=== PATIENT | female | born 1995 ===

== ENCOUNTER → 2020-04-08 08:53 | Outpatient (BNVA) | payer OTHER, SELFPAY | PROVIDERS: PCP Internal Medicine; Visit Provider Advanced Practice Midwife | DX: Z30.42 Encounter for surveillance of injectable contraceptive (principal) | CPT/HCPCS: 96372 ==

== ENCOUNTER 2020-05-15 10:00 | Outpatient (REF) | payer OTHER, MEDICAID, SELFPAY ==
[2020-05-16 03:09] LABS: CT PCR NOT DETECTED (Not Detect.); NG PCR NOT DETECTED (Not Detect.)
[2020-05-16 08:18] LABS: BV Int Neg Control Negative (Negative); BV Int Pos Control Positive (Positive)
== END 2020-05-15 10:01 | disposition home or self-care (01) ==
LOC: HO.LAB 10:00
PROVIDERS: PCP Internal Medicine; Referring Provider Internal Medicine; Visit Provider Advanced Practice Midwife
DX: Z01.419 Encounter for gynecological examination (general) (routine) without abnormal findings (principal); R10.2 Pelvic and perineal pain; Z11.8 Encounter for screening for other infectious and parasitic diseases; Z11.3 Encounter for screening for infections with a predominantly sexual mode of transmission
CPT/HCPCS: 87480; 87491; 87510; 87591; 87660

== ENCOUNTER 2020-05-21 10:26 | Outpatient (REF) | payer OTHER, MEDICAID, SELFPAY ==
--- NOTE | 2020-05-21 10:31 | US_ITS ---
EXAMINATION: ULTRASOUND OF THE PELVIS CLINICAL INFORMATION: Pelvic and perineal pain. COMPARISON: 06/24/2018.. TECHNIQUE: Transabdominal and transvaginal pelvic ultrasound. A transvaginal study was performed in addition to the transabdominal study which did not yield an adequate examination of the uterus and ovaries due to superimposed distended gas-filled loops of bowel. FINDINGS: The uterus is normal in size and appearance, measuring 7.1 x 3.1 x 4.5 cm longitudinally, anteroposteriorly and transversely. Retroverted uterus. The endometrial stripe thickness is normal, measuring 0.3 cm in thickness. No focal myometrial mass is seen. The ovaries bilaterally are visualized and appear normal, with the right ovary measuring 3.1 x 1.5 x 2 cm and the left ovary measuring 2.8 x 1.3 x 1.8 cm. No adnexal mass or free fluid collection seen. US/US transvaginal IMPRESSION: Normal pelvic ultrasound..
--- NOTE | 2020-05-21 10:31 | US_ITS ---
EXAMINATION: ULTRASOUND OF THE PELVIS CLINICAL INFORMATION: Pelvic and perineal pain. COMPARISON: 06/24/2018.. TECHNIQUE: Transabdominal and transvaginal pelvic ultrasound. A transvaginal study was performed in addition to the transabdominal study which did not yield an adequate examination of the uterus and ovaries due to superimposed distended gas-filled loops of bowel. FINDINGS: The uterus is normal in size and appearance, measuring 7.1 x 3.1 x 4.5 cm longitudinally, anteroposteriorly and transversely. Retroverted uterus. The endometrial stripe thickness is normal, measuring 0.3 cm in thickness. No focal myometrial mass is seen. The ovaries bilaterally are visualized and appear normal, with the right ovary measuring 3.1 x 1.5 x 2 cm and the left ovary measuring 2.8 x 1.3 x 1.8 cm. No adnexal mass or free fluid collection seen. US/US pelvic complete IMPRESSION: Normal pelvic ultrasound..
== END 2020-05-21 10:27 | disposition home or self-care (01) ==
LOC: HO.HMGCX 10:26
PROVIDERS: PCP Internal Medicine; Visit Provider Advanced Practice Midwife
DX: R10.2 Pelvic and perineal pain (principal)
CPT/HCPCS: 76830; 76856

== ENCOUNTER → 2020-06-04 11:14 | Outpatient (BNVA) | payer OTHER, SELFPAY | PROVIDERS: Visit Provider Advanced Practice Midwife | DX: Z76.89 Persons encountering health services in other specified circumstances (principal) ==

== ENCOUNTER → 2020-06-24 09:03 | Outpatient (BNVA) | payer OTHER, SELFPAY | PROVIDERS: Visit Provider Advanced Practice Midwife | DX: Z76.89 Persons encountering health services in other specified circumstances (principal) ==

== ENCOUNTER → 2020-09-19 08:59 | Outpatient (BNVA) | payer OTHER, SELFPAY | PROVIDERS: Visit Provider Advanced Practice Midwife | DX: Z30.8 Encounter for other contraceptive management (principal) | CPT/HCPCS: J1050 ==

== ENCOUNTER → 2020-12-10 11:02 | Outpatient (BNVA) | payer OTHER, SELFPAY | PROVIDERS: Visit Provider Advanced Practice Midwife ==

== ENCOUNTER → 2021-02-27 09:05 | Outpatient (BNVA) | payer OTHER, SELFPAY | PROVIDERS: Visit Provider Advanced Practice Midwife ==

== ENCOUNTER 2021-04-08 18:34 | Emergency (ER) | payer OTHER, MEDICAID, SELFPAY ==
[2021-04-08 19:20] VITALS: BP 140/96; PULSE 70; RESP 18; TEMP 36.3; O2SAT 98; BMI 29.2
[2021-04-08 19:30] LABS: Appearance Urine CLEAR; Glucose Urine UA NEG (NEG); Leukocyte Esterase Urine NEG (NEG); Nitrite Urine NEG (NEG); Specific Gravity - Urine 1.015 (1.005-1.025); Urine Blood NEG (NEG); Urine Ketones NEG (NEG); Urine Protein NEG (NEG-TRACE)
[2021-04-08 19:31] LABS: Color Urine DARK YELLOW
[2021-04-08 19:33] LABS: UPreg QC Valid YES; Urine Pregnancy NEGATIVE (NEGATIVE)
--- NOTE | 2021-04-08 21:19 | ED.FEMALEGU ---
HPI - Female Genitourinary General Chief complaint: Urogenital-Female Stated complaint: ? and uti Time Seen by Provider: 04/08/21 21:19 Source: patient Mode of arrival: ambulatory Limitations: no limitations History of Present Illness HPI Narrative: 25-year-old female who presents emergency department for evaluation of blood urinary frequency. She states she has had the symptoms for approximately 1 week. She states that she has been also feeling bloated and is having mild to moderate back pain. She describes a bloating and back pain as a constant, pressure sensation which is [id number] in intensity. The patient states that she was diagnosed with H pylori in December of 2020 and she has not been able to complete a regimen of antibiotics secondary to side effects. She is currently taking rifabutin and amoxicillin and she believes that her symptoms may be a side effect of the rifabutin. She denied fever, chills, chest pain, shortness of breath, change in bowel movements. She states she has had nausea and 1 episode of vomiting daily since she has been on this new regimen. She states that she gets urinary tract infections once a year and her symptoms often include frequency and bloating. Related Data Home Medications Medication Instructions Recorded Confirmed ibuprofen 800 mg tablet 800 mg PO Q8H PRN 05/15/20 omeprazole 10 mg capsule,delayed 10 mg PO DAILY 06/04/20 release Previous Rx's Medication Instructions Recorded valacyclovir 500 mg tablet 500 mg PO BID #30 tab 12/23/20 (Valtrex) medroxyprogesterone 150 mg/mL 150 mg IM [id number] 90 Days #1 ml 02/25/21 intramuscular suspension (Depo-Provera) Allergies Allergy/AdvReac Type Severity Reaction Status Date / Time mold Allergy Unknown Verified 06/04/20 11:16 Review of Systems Review of Systems: Yes all other systems are reviewed and are negative PMFSH Past Medical History [facility] Narrative: Past medical history GERD, chronic migraines. Past surgical history: None. Social history: She denies tobacco use. She denies alcohol use. She denies drug use. Medical History Acid reflux Chronic UTI H. pylori infection History of posttraumatic stress disorder (PTSD) Hx of eczema Hx of seasonal allergies Migraines Family History Family History Paternal Grandmother History of hypertension Social History Social History Alcohol intake: never Advance Directives: No Advance Directives Information Provided: No Patient : No Sexual orientation: Straight/Heterosexual Gender identity: Female Physical Exam Vital Signs: Vital Signs: Last Vital Signs Temp 98.3 F 04/08/21 21:38 Pulse 82 04/08/21 21:38 Resp 16 04/08/21 21:38 BP 132/87 04/08/21 21:38 Pulse Ox 100 04/08/21 21:38 Body Mass Index 29.2 Const: General: cooperative and no acute distress Orientation/consciousness: oriented to person and oriented to place Limitations: no limitations HENMT: Head: Yes normal to inspection, Yes normocephalic and Yes atraumatic Ears: external ears normal General nose exam: Normal external nose present Face and sinus: Yes normal facial exam Mouth: Normal oral and palatal mucosa present Throat: Yes posterior oropharynx normal Eyes: General: appearance normal, both eyes and all related structures Pupils: Equal, round and reactive pupils present Neck: Neck: Yes normal visual inspection, Yes no lymphadenopathy, Yes trachea midline and Yes supple Chest: Chest palpation & inspection: normal inspection of the chest and normal palpation of entire chest wall Resp: Effort & Inspection: normal respiratory effort and able to speak in complete sentences Auscultation: clear to auscultation bilaterally Cardio: Rate: regular rate Rhythm: regular rhythm Heart sounds: S1 normal heart sound present, S2 normal heart sound present and no murmurs GI: Inspection: Yes normal to inspection Palpation (GI): Soft to palpation, nontender and no guarding Auscultation: normal bowel sounds : General: Yes no CVA tenderness Back/Spine/Pelvis: Back: no CVA tenderness Skin: General skin exam: no rashes or lesions noted Neuro: General: oriented to person and oriented to place Cranial nerves: Yes CN's II-XII intact bilaterally and Yes Equal, round and reactive pupils present Cognition (Neuro): normal cognition Motor exam (neuro): 5/5 motor strength present throughout Extrem: General: Yes normal to inspection Psych: Appearance: grossly normal Speech and movement: Normal speech and movement present Affect: normal affect Attitude: cooperative Thought process: Normal thought process present Thought content: Normal thought content present Course Course Course Narrative: 25-year-old female who presents emergency for evaluation of urinary frequency bloating x1 week. Patient is currently being treated for H pylori with amoxicillin and rifabutin. Vital signs were normal. Physical examination was unremarkable. Urinalysis was negative. Urine test was negative. I did discuss these results with the patient and I strongly advised her to try to complete her H pylori regimen and return to the emergency department if she developed new since of urinary tract infection or any symptoms that are concerning to her. Patient was discharged home [facility] - Female Genitourinary Lab Data Labs: Lab Results 04/08/21 04/08/21 Range/Units 19:16 Unknown Urine Color DARK YELLOW Urine Appearance CLEAR Urine pH 7.0 (5.0-8.0) Ur Specific [place] 1.015 (1.005-1.025) Urine Protein NEG (NEG-TRACE) MG/DL Urine Glucose (UA) NEG (NEG) MG/DL Urine Ketones NEG (NEG) MG/DL Urine Blood NEG (NEG) Urine Nitrite NEG (NEG) Ur Leukocyte Esterase NEG (NEG) Urine Test NEGATIVE (NEGATIVE) Discharge Plan Discharge Clinical Impression: Frequency of urination, Bloating Patient Disposition: Home, Self-Care Additional Instructions: Your urine test was negative Your urinalysis was negative as well, this negative test suggest that your urinary frequency is not due to urine infection and it is most likely caused by the medications that you taking for H pylori. I would advise that you try to finish the next 4 days of this medication to complete your antibiotic regimen. I would watch for signs of infection which would include fever, chills, severe back pain, severe pelvic pain, burning when urinate. Follow-up with your doctor in 2 days. Please return to the emergency department if your symptoms get worse or if you develop any symptoms that are concerning to you. Prescriptions: No Action valacyclovir [Valtrex] 500 mg tablet 500 mg PO BID Qty: 30 RF: 1 medroxyprogesterone [Depo-Provera] 150 mg/mL suspension 150 mg IM [id number] 90 Days Qty: 1 RF: 1 omeprazole 10 mg capsule,delayed release(DR/EC) 10 mg PO DAILY RF: 0 ibuprofen 800 mg tablet 800 mg PO Q8H PRN (Reason: pain) RF: 0
[2021-04-08 21:38] VITALS: BP 132/87; PULSE 82; RESP 16; TEMP 36.8; O2SAT 100
== END 2021-04-08 22:03 | disposition home or self-care (01) ==
PROVIDERS: Emergency Provider Emergency Medicine Emergency Medical Services; PCP Internal Medicine
DX: R35.0 Frequency of micturition (principal); R14.0 Abdominal distension (gaseous); Z79.2 Long term (current) use of antibiotics; Z79.899 Other long term (current) drug therapy
CPT/HCPCS: 81003; 81025; 99282; 99283; 99284

== ENCOUNTER → 2021-05-28 11:41 | Outpatient (BNVA) | payer OTHER, SELFPAY | PROVIDERS: PCP Internal Medicine; Visit Provider Advanced Practice Midwife ==

== ENCOUNTER → 2021-08-14 08:22 | Outpatient (BNVA) | payer OTHER, SELFPAY | PROVIDERS: PCP Internal Medicine; Visit Provider Advanced Practice Midwife | DX: Z30.42 Encounter for surveillance of injectable contraceptive (principal) | CPT/HCPCS: 96372 ==

== ENCOUNTER 2021-09-16 08:17 | Outpatient (REF) | payer OTHER, MEDICAID, SELFPAY ==
[2021-09-17 04:11] LABS: CT PCR NOT DETECTED (Not Detect.); NG PCR NOT DETECTED (Not Detect.)
[2021-09-17 08:45] LABS: BV Int Neg Control Negative (Negative); BV Int Pos Control Positive (Positive)
== END 2021-09-16 08:18 | disposition home or self-care (01) ==
LOC: HO.LAB 08:17
PROVIDERS: PCP Internal Medicine; Visit Provider Advanced Practice Midwife
DX: Z01.419 Encounter for gynecological examination (general) (routine) without abnormal findings (principal); N76.0 Acute vaginitis; Z20.2 Contact with and (suspected) exposure to infections with a predominantly sexual mode of transmission
CPT/HCPCS: 87480; 87491; 87510; 87591; 87660; 88142

== ENCOUNTER → 2021-11-10 11:20 | Outpatient (BNVA) | payer OTHER, MEDICAID, SELFPAY | PROVIDERS: Visit Provider Advanced Practice Midwife | DX: Z30.42 Encounter for surveillance of injectable contraceptive (principal) | CPT/HCPCS: 96372 ==

== ENCOUNTER → 2022-01-27 09:43 | Outpatient (BNVA) | payer OTHER, MEDICAID, SELFPAY | PROVIDERS: Visit Provider Advanced Practice Midwife | DX: Z30.42 Encounter for surveillance of injectable contraceptive (principal) | CPT/HCPCS: 96372 ==

== ENCOUNTER → 2022-04-24 12:57 | Outpatient (BNVA) | payer OTHER, MEDICAID, SELFPAY | PROVIDERS: Visit Provider Advanced Practice Midwife | DX: Z30.42 Encounter for surveillance of injectable contraceptive (principal) | CPT/HCPCS: 96372 ==

== ENCOUNTER → 2022-07-20 14:37 | Outpatient (BNVA) | payer OTHER, SELFPAY | PROVIDERS: Visit Provider Advanced Practice Midwife | DX: Z30.42 Encounter for surveillance of injectable contraceptive (principal) | CPT/HCPCS: 96372 ==

== ENCOUNTER 2022-09-29 08:59 | Outpatient (REF) | payer OTHER, SELFPAY ==
[2022-09-29 15:16] LABS: CT PCR NOT DETECTED (Not Detect.); NG PCR NOT DETECTED (Not Detect.)
== END 2022-09-29 09:00 | disposition home or self-care (01) ==
LOC: HO.LNP 08:59
PROVIDERS: Visit Provider Advanced Practice Midwife
DX: Z20.2 Contact with and (suspected) exposure to infections with a predominantly sexual mode of transmission (principal)
CPT/HCPCS: 0353U

== ENCOUNTER → 2022-10-06 14:57 | Outpatient (BNVA) | payer OTHER, SELFPAY | PROVIDERS: Visit Provider Advanced Practice Midwife | DX: Z30.42 Encounter for surveillance of injectable contraceptive (principal) | CPT/HCPCS: 96372; 99211 ==

== ENCOUNTER → 2023-01-04 08:32 | Outpatient (BNVA) | payer OTHER, SELFPAY | PROVIDERS: Visit Provider Advanced Practice Midwife | DX: Z30.42 Encounter for surveillance of injectable contraceptive (principal) | CPT/HCPCS: 96372; 99211 ==

== ENCOUNTER 2023-03-29 08:55 | Outpatient (AMB) | payer OTHER, SELFPAY ==
[2023-03-29 09:14] VITALS: BMI 27.6
--- NOTE | 2023-03-29 09:14 | AM.OFFVISNUR ---
Intake Vital Signs 03/29/23 09:14 Height 5 ft 2 in Weight 68.492 kg BMI 27.6 Intake Visit Reasons: DEPO Allergies mold Allergy (Verified 09/29/22 09:10) Unknown Nursing Note Kait is here for her scheduled DEPO-Provera inj. She has no complaints. Follow up in 12 weeks for nest inj. Office Procedures Depo Questionnaire If YES to any of the following questions, please consult a provider. Date of last injection: 01/03/23 Date of last gynecology exam: 09/16/22 Menstrual pattern since last injection has been: Not Applicable Irregular bleeding?: No Breast lumps or other breast changes?: No Changes in weight or appetite?: No Depression or changes in mood?: No Abnormal hair growth or loss?: No Skin problems (rash, acne, discoloration)?: No Pain at the injection site?: No Headaches?: No Nervousness?: No Abdominal pain or cramping?: No Dizziness or nausea?: No Fatigue or weakness?: No Decrease in sexual drive?: No Chest pain or shortness of breath?: No Swelling in arms or legs?: No Form completed by?: Merline Hunter LPN Office Meds Depo-Provera 150 mg/mL intramuscular syringe Performing Provider: Nahomi Hopper CNM Performing Location: [facility] [place] [facility] Administered by: Nelly Hunter LPN on 03/29/23 09:15 Dose Route Admin Location Dispensed Lot Number Expiration Date [facility] Supervisor Fish Processing 150 mg IM rt. deltoid 1 mL [id number] 05/04/25 80573-424-46 [facility] Coding Level of Care Code Established Pt Est Pt Level 1 (48278) Patient Type Established History Problem Focused Exam Problem Focused Medical Decision Making Straight Forward Time Spent (min) 20 Assessment & Plan Assessment & Plan Orders: Orders AMB Medroxyprogesterone Injection Patient Supplied Today Z30.42 - Encounter for surveillance of injectable contraceptive
== END 2023-03-29 09:09 | disposition home or self-care (01) ==
PROVIDERS: Visit Provider Advanced Practice Midwife
DX: Z30.42 Encounter for surveillance of injectable contraceptive (principal)

== ENCOUNTER → 2023-03-29 08:55 | Outpatient (BNVA) | payer OTHER, SELFPAY | PROVIDERS: Visit Provider Advanced Practice Midwife | DX: Z30.42 Encounter for surveillance of injectable contraceptive (principal) | CPT/HCPCS: 96372; 99211; J1050 ==

== ENCOUNTER 2023-06-24 11:08 | Outpatient (AMB) | payer OTHER, SELFPAY ==
[2023-06-24 11:21] VITALS: BMI 28.6
--- NOTE | 2023-06-24 11:21 | AM.OFFVISNUR ---
Intake Vital Signs 06/24/23 11:21 Height 5 ft 2 in Weight 70.817 kg BMI 28.6 Intake Visit Reasons: Depo Allergies mold Allergy (Verified 09/29/22 09:10) Unknown Nursing Note Kait is here today for her scheduled Depo-provera inj. Her medication was in bag with receipt from today. Pt had no complaints follow up in 12 wks for next inj. Office Procedures Depo Questionnaire If YES to any of the following questions, please consult a provider. Date of last injection: 03/29/23 Date of last gynecology exam: 09/24/22 Menstrual pattern since last injection has been: Not Applicable Irregular bleeding?: No Breast lumps or other breast changes?: No Changes in weight or appetite?: No Depression or changes in mood?: No Abnormal hair growth or loss?: No Skin problems (rash, acne, discoloration)?: No Pain at the injection site?: No Headaches?: No Nervousness?: No Abdominal pain or cramping?: No Dizziness or nausea?: No Fatigue or weakness?: No Decrease in sexual drive?: No Chest pain or shortness of breath?: No Swelling in arms or legs?: No Form completed by?: Merline mackey LPN Office Meds Depo-Provera 150 mg/mL intramuscular syringe Performing Provider: Nahomi Hopper CNM [place] [facility] [place] [facility] Administered by: Nelly Mackey LPN on 06/24/23 11:21 Dose Route Admin Location Dispensed Lot Number Expiration Date [facility] 150 mg IM Lt deltoid 1 mL [id number] 10/02/25 20461-253-82 [facility] Coding Level of Care Code Established Pt Est Pt Level 1 (65654) Patient Type Established History Problem Focused Exam Problem Focused Medical Decision Making Straight Forward Time Spent (min) 15 Assessment & Plan Assessment & Plan Orders: Orders AMB Medroxyprogesterone Injection Patient Supplied Today Z30.42 - Encounter for surveillance of injectable contraceptive
== END 2023-06-24 12:06 | disposition home or self-care (01) ==
LOC: HO.HWS 11:08
PROVIDERS: Visit Provider Advanced Practice Midwife
DX: Z30.42 Encounter for surveillance of injectable contraceptive (principal)

== ENCOUNTER → 2023-06-24 11:08 | Outpatient (BNVA) | payer OTHER, SELFPAY | PROVIDERS: Visit Provider Advanced Practice Midwife | DX: Z30.42 Encounter for surveillance of injectable contraceptive (principal) | CPT/HCPCS: 96372; 99211; J1050 ==

== ENCOUNTER 2023-09-17 08:52 | Outpatient (AMB) | payer OTHER, SELFPAY ==
[2023-09-17 09:21] VITALS: BMI 28.7
--- NOTE | 2023-09-17 09:21 | AM.OFFVISNUR ---
Intake Vital Signs 09/17/23 09:21 Height 5 ft 2 in Weight 157 lb BMI 28.7 Intake Visit Reasons: DEPO Fitness And Wellness Manager Required: No Allergies mold Allergy (Verified 09/29/22 09:10) Unknown Is last menstrual period known: No Post menopausal: No Patient : No Do you need a note to return to daycare/school/sports/work: No Nursing Note Kait is here for scheduled Depo provera injection. No c/o, no new meds or diagnoses. Pt tolerated injection well. Pt will schedule next injection in 12 weeks. Pt verbalizes understanding and agrees with plan. No further questions. Office Procedures Depo Questionnaire If YES to any of the following questions, please consult a provider. Date of last injection: 06/24/23 Date of last gynecology exam: 09/29/22 Menstrual pattern since last injection has been: Not Applicable Irregular bleeding?: No Breast lumps or other breast changes?: No Changes in weight or appetite?: No Depression or changes in mood?: No Abnormal hair growth or loss?: No Skin problems (rash, acne, discoloration)?: No Pain at the injection site?: No Headaches?: No Nervousness?: No Abdominal pain or cramping?: No Dizziness or nausea?: No Fatigue or weakness?: No Decrease in sexual drive?: No Chest pain or shortness of breath?: No Swelling in arms or legs?: No Form completed by?: Antonia Bran inspector materials and processes Meds Depo-Provera 150 mg/mL intramuscular syringe Performing Provider: Nahomi Hopper CNM Performing Location: [facility] [place] [facility] Administered by: Antonia Bran on 09/17/23 09:24 Dose Route Admin Location Dispensed Lot Number Expiration Date [facility] Program Review Director 150 mg IM right deltoid 1 mL [id number] 10/02/25 15324-665-35 [facility] Coding Level of Care Code Established Pt Est Pt Level 1 (68581) Patient Type Established History Problem Focused Medical Decision Making Straight Forward Time Spent (min) 11 Assessment & Plan Assessment & Plan Orders: Orders AMB Medroxyprogesterone Injection Patient Supplied Today Z30.42 - Encounter for surveillance of injectable contraceptive
== END 2023-09-17 09:27 | disposition home or self-care (01) ==
PROVIDERS: Visit Provider Advanced Practice Midwife
DX: Z30.42 Encounter for surveillance of injectable contraceptive (principal)

== ENCOUNTER → 2023-09-17 08:52 | Outpatient (BNVA) | payer OTHER, SELFPAY | PROVIDERS: Visit Provider Advanced Practice Midwife | DX: Z30.42 Encounter for surveillance of injectable contraceptive (principal) | CPT/HCPCS: 96372; 99211; J1050 ==

== ENCOUNTER 2023-10-06 09:15 | Outpatient (AMB) | payer OTHER, SELFPAY ==
--- NOTE | 2023-10-06 09:20 | MHC.OFFVIS ---
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 Doing well with no concerns. She tries to eat healthy and stays active with exercise. Doing well on Depo, she denies any risk factors for Depo use. Currently is sexually active w/partner of 10 yrs. She denies vaginal itching and irritation. STI screening offered; she accepts. Declines bloodwork. She feels safe at home. 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 Denies family history of breast, ovarian or colon cancer. Last pap smear 2021, negative. [facility] Medical History Cobalamin deficiency Migraines Acid reflux H. 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 Sexually active: Yes Sexual orientation: Straight/Heterosexual Gender identity: Female Female Reproductive History Menstrual Age of Menarche: 12 control method: progesterone injection (Depo 09/17/23) Total pregnancies: 1 Full term: 1 Number of Living Children: 1 Date of last pap smear: 09/16/21 (neg) Review of Systems Const All systems reviewed & are unremarkable except as noted in HPI and below Reports as per HPI Eyes Reports no additional complaints ENT Reports no additional complaints Card Reports no additional complaints Resp Reports no additional complaints GI Reports as per HPI and Reports no additional complaints Reports as per HPI Musc Reports no additional complaints Skin/Breast Reports as per HPI Neuro Reports no additional complaints Psych Reports no additional complaints Endo Reports no additional complaints Lukasz/Lymph Reports no additional complaints Aller/Immun Reports no additional complaints Physical Exam Vital Signs: Last Vital Signs BP 100/66 10/06/23 09:21 BMI result Body Mass Index 29.3 Const General: cooperative, healthy appearing, no acute distress, well developed and alert Orientation/consciousness: patient oriented x3 HEENT Head: Yes normal to inspection Eyes General: appearance normal, both eyes and all related structures Neck Neck: Yes normal visual inspection Thyroid: Thyroid normal Chest Chest palpation & inspection: normal inspection of the chest and other (no puckering, dimpling, peau de orange, retraction, discharge, masses) Breast/axilla inspection: normal inspection of the breasts Breast/axilla palpation: normal palpation of the breasts Resp Effort & Inspection: normal respiratory effort GI Inspection: Yes normal to inspection Palpation (GI): Soft to palpation Rectal Exam - Female: deferred General: Yes bladder normal to palpation External Female Exam: normal external appearance and normal appearance of the urethra Speculum Exam - Vagina: normal appearance of the vagina, normal palpation and normal vaginal discharge Speculum Exam - Cervix: normal appearance of the cervix and normal palpation Bimanual exam- vagina & uterus: normal bimanual exam, normal palpation, uterine size normal, bladder normal to palpation, normal palpation and non-tender Bimanual Exam- Adnexa, other: no masses Skin General skin exam: no rashes or lesions noted Rashes: no rashes Neuro General: patient oriented x3 Cognition (Neuro): normal cognition Extrem General: Yes normal to inspection Psych Attitude: cooperative Thought process: Normal thought process present Assessment & Plan Assessment & Plan (1) Encounter for well woman exam with routine gynecological exam: Code(s): Z01.419 - Encounter for gynecological examination (general) (routine) without abnormal findings Plan Discussed: Current recommendations for pap smears per ASCCP guidelines. Breast awareness and periodic breast exams. Maintain a healthy lifestyle including a well balanced diet and routine exercise. Patient verbalizes understanding and agrees to the plan of care. She was given opportunity to ask questions and all questions were answered to the best of my ability. RTO in one year for annual caster investment casting examination. This note is constructed using voice recognition software. While every effort has been made to ensure accuracy, building wrecker errors may have been included. Orders: Orders CT NG by PCR Today Z20.2 - Contact with and (suspected) exposure to infections with a predominantly sexual mode of transmission Medications: Refilled medroxyprogesterone (Depo-Provera) 150 mg IM [id number] 1 mL 4RF 90 days Coding Level of Care Code Est Pt Prev Care 18-39y(64118) Diagnoses Encounter for well woman exam with routine gynecological exam Z01.419
[2023-10-06 09:21] VITALS: BP 100/66; BMI 29.3
== END 2023-10-06 09:46 | disposition home or self-care (01) ==
PROVIDERS: Visit Provider Advanced Practice Midwife
DX: Z01.419 Encounter for gynecological examination (general) (routine) without abnormal findings (principal)
CPT/HCPCS: 99395

== ENCOUNTER 2023-10-06 09:15 | Outpatient (REF) | payer OTHER, SELFPAY ==
[2023-10-06 17:37] LABS: CT PCR NOT DETECTED (Not Detect.); NG PCR NOT DETECTED (Not Detect.)
== END 2023-10-06 09:16 | disposition home or self-care (01) ==
LOC: HO.LNP 09:15
PROVIDERS: Visit Provider Advanced Practice Midwife
DX: Z01.419 Encounter for gynecological examination (general) (routine) without abnormal findings (principal); Z20.2 Contact with and (suspected) exposure to infections with a predominantly sexual mode of transmission
CPT/HCPCS: 0353U; 99395

== ENCOUNTER 2023-12-08 08:35 | Outpatient (AMB) | payer OTHER, SELFPAY ==
[2023-12-08 08:47] VITALS: BMI 29.1
--- NOTE | 2023-12-08 08:47 | AM.OFFVISNUR ---
Intake Vital Signs 12/08/23 08:47 Height 5 ft 2 in Weight 72.178 kg BMI 29.1 Intake Visit Reasons: depo Allergies mold Allergy (Verified 10/06/23 09:21) Unknown Nursing Note Kait is here today for her scheduled Depo-provera inj. She denies any problems or concerns. Follow up in 12 wks for next inj. Office Procedures Depo Questionnaire If YES to any of the following questions, please consult a provider. Date of last injection: 09/17/23 Date of last gynecology exam: 10/06/23 Menstrual pattern since last injection has been: Not Applicable Irregular bleeding?: No Breast lumps or other breast changes?: No Changes in weight or appetite?: No Depression or changes in mood?: No Abnormal hair growth or loss?: No Skin problems (rash, acne, discoloration)?: No Pain at the injection site?: No Headaches?: No Nervousness?: No Abdominal pain or cramping?: No Dizziness or nausea?: No Fatigue or weakness?: No Decrease in sexual drive?: No Chest pain or shortness of breath?: No Swelling in arms or legs?: No Form completed by?: Merline Hunter LPN Office Meds Depo-Provera 150 mg/mL intramuscular syringe Performing Provider: Nahomi Hopper CNM Performing Location: [facility] [place] [facility] [place] [facility] Administered by: Nelly Hunter LPN on 12/08/23 08:48 Dose Route Admin Location Dispensed Lot Number Expiration Date [facility] Panel Sewer 150 mg IM left deltoid 1 mL [id number] 03/04/25 80459-156-01 [facility] Coding Level of Care Code Established Pt Est Pt Level 1 (25496) Patient Type Established History Problem Focused Exam Problem Focused Medical Decision Making Straight Forward Time Spent (min) 20 Assessment & Plan Assessment & Plan Orders: Orders AMB Medroxyprogesterone Injection Patient Supplied Today Z30.42 - Encounter for surveillance of injectable contraceptive Medications: New Depo-Provera (medroxyprogesterone) 150 mg IM ONCE 1 mL 0RF NS Z30.42 - Encounter for surveillance of injectable contraceptive
== END 2023-12-08 08:46 | disposition home or self-care (01) ==
PROVIDERS: Visit Provider Advanced Practice Midwife
DX: Z30.42 Encounter for surveillance of injectable contraceptive (principal)

== ENCOUNTER → 2023-12-08 08:35 | Outpatient (BNVA) | payer OTHER, SELFPAY | PROVIDERS: Visit Provider Advanced Practice Midwife | DX: Z30.42 Encounter for surveillance of injectable contraceptive (principal) | CPT/HCPCS: 96372; 99211; J1050 ==

== ENCOUNTER 2024-02-08 10:21 | Outpatient (AMB) | payer OTHER, SELFPAY ==
--- NOTE | 2024-02-08 10:23 | A.OFFVIS_ITS ---
Vital Signs 02/08/24 10:24 Height 5 ft 2 in Weight 159 lb BMI 29.1 BP 92/60 Intake Visit Reasons: ? infection Intake Note: vag irritation on labia Rehabilitation Services Counselor: Rehabilitation Services Counselor Present (Dorothy) Allergies mold Allergy (Verified 02/08/24 10:24) Unknown HPI Comments Details: Patient is here today with concerns of external itching, currently taking antibiotics for the last week and needs to complete a course of 10 days. She denies any menstrual cycle changes. She denies any pelvic pain, urinary symptoms, back pain, fever or flu-like symptoms. [facility] Medical History Cobalamin deficiency Migraines Acid reflux H. 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 Sexual orientation: Straight/Heterosexual Gender identity: Female Female Reproductive History Menstrual Age of Menarche: 12 Review of Systems Const All systems reviewed & are unremarkable except as noted in HPI and below Physical Exam Vital Signs: Last Vital Signs BP 92/60 02/08/24 10:24 BMI result Body Mass Index 29.1 Const General: cooperative, healthy appearing and no acute distress Orientation/consciousness: patient oriented x3 GI Inspection: Yes normal to inspection Palpation (GI): Soft to palpation and Other GI palpation findings present (Nontender) Rectal Exam - Female: visual inspection normal Other: Erythema externally labia General: Yes bladder normal to palpation External Female Exam: normal appearance of the urethra Speculum Exam - Vagina: normal appearance of the vagina, normal palpation and normal vaginal discharge (White, thicker small amount of frothy ) Speculum Exam - Cervix: normal appearance of the cervix and normal palpation Bimanual exam- vagina & uterus: normal bimanual exam, normal palpation, uterine size normal, bladder normal to palpation, normal palpation, uterine shape normal and non-tender Bimanual Exam- Adnexa, other: Other (Slight fullness to the right adnexa, nontender) Neuro General: patient oriented x3 Assessment & Plan Assessment & Plan (1) Vulvar itching: Code(s): L29.2 - Pruritus vulvae (2) Adnexal fullness: Code(s): N94.9 - Unspecified condition associated with female genital organs and menstrual cycle Plan Discussed: BV panel obtained. Treatment option to start with Diflucan today until BV panel is back. Initiate probiotics. Ultrasound follow up due to adnexal fullness. All of her questions and concerns were addressed to the best of my ability and shared decision making. She is agreeable to the plan of care. Plan ultrasound follow up. This note is constructed using voice recognition software. While every effort has been made to ensure accuracy, assistant professor of communication errors may have been included. Orders: Orders US pelvic and transvaginal Today N94.9 - Unspecified condition associated with female genital organs and menstrual cycle Bacterial Vaginosis Panel Today L29.2 - Pruritus vulvae Medications: New fluconazole 150 mg PO ONCE 1 day 1 tab 1RF personal Coding Level of Care Code Est Pt Level 3 (79349) Diagnoses Vulvar itching L29.2 Adnexal fullness N94.9
[2024-02-08 10:24] VITALS: BP 92/60; BMI 29.1
== END 2024-02-08 11:02 | disposition home or self-care (01) ==
PROVIDERS: Visit Provider Advanced Practice Midwife
DX: L29.2 Pruritus vulvae (principal); N94.9 Unspecified condition associated with female genital organs and menstrual cycle
CPT/HCPCS: 99213

== ENCOUNTER 2024-02-08 10:21 | Outpatient (REF) | payer OTHER, SELFPAY ==
[2024-02-08 17:17] LABS: Bacterial Vaginosis PCR NEGATIVE (Negative); Candida Group PCR DETECTED (Not Detect); Candida glab krusei PCR NOT DETECTED (Not Detect); Trichomonas vaginalis PCR NOT DETECTED (Not Detect)
== END 2024-02-08 10:22 | disposition home or self-care (01) ==
LOC: HO.LAB 10:21
PROVIDERS: Visit Provider Advanced Practice Midwife
DX: L29.2 Pruritus vulvae (principal); N94.9 Unspecified condition associated with female genital organs and menstrual cycle
CPT/HCPCS: 0352U; 99212

== ENCOUNTER 2024-02-14 11:30 | Outpatient (REF) | payer OTHER, SELFPAY ==
--- NOTE | ~2024-02-14 | US_ITS ---
EXAM: Pelvic Ultrasound CLINICAL INDICATION: Adnexal fullness COMPARISON: Pelvic ultrasound May 21, 2020 TECHNIQUE: The pelvis was evaluated using transabdominal and transvaginal imaging. FINDINGS: Retroverted uterus measures 6.3 x 3.7 x 3.9 cm in longitudinal by AP by transverse dimension. The endometrial stripe is not thickened and measures 0.4 cm. Some small calcifications are noted within the lower uterine segment. The left ovary measures approximately 2.7 x 1.6 x 1.6 cm and is normal. The right ovary measures approximately 3.1 x 1.6 x 1.7 cm and contains a simple appearing approximately 1 cm cyst. There is a small amount of free fluid in the pelvis. US/US pelvic and transvaginal IMPRESSION: 1. Normal thickness endometrial stripe. 2. Small amount of free pelvic fluid, nonspecific but likely physiologic in a female of this age. 3. 1 cm simple appearing right ovarian cyst. Electronically signed by: Cholo Wesley MD 03/02/2024 07:25 AM EDT
== END 2024-02-14 11:31 | disposition home or self-care (01) ==
LOC: HO.US 11:30
PROVIDERS: Visit Provider Advanced Practice Midwife
DX: N94.9 Unspecified condition associated with female genital organs and menstrual cycle (principal)
CPT/HCPCS: 76830; 76856

== ENCOUNTER 2024-02-24 08:45 | Outpatient (AMB) | payer OTHER, SELFPAY ==
[2024-02-24 09:16] VITALS: BMI 29.3
--- NOTE | 2024-02-24 09:16 | AM.OFFVISNUR ---
Vital Signs 02/24/24 09:16 Height 5 ft 2 in Weight 72.575 kg BMI 29.3 Intake Visit Reasons: depo Allergies mold Allergy (Verified 02/08/24 10:24) Unknown Nursing Note Kait is here today for her scheduled Depo-Provera inj. She denies any problems or concerns. Follow up in 12 weeks. Office Procedures Depo Questionnaire If YES to any of the following questions, please consult a provider. Date of last injection: 12/08/23 Date of last gynecology exam: 10/06/23 Menstrual pattern since last injection has been: Not Applicable Irregular bleeding?: No Breast lumps or other breast changes?: No Changes in weight or appetite?: No Depression or changes in mood?: No Abnormal hair growth or loss?: No Skin problems (rash, acne, discoloration)?: No Pain at the injection site?: No Headaches?: No Nervousness?: No Abdominal pain or cramping?: No Dizziness or nausea?: No Fatigue or weakness?: No Decrease in sexual drive?: No Chest pain or shortness of breath?: No Swelling in arms or legs?: No Any other problems or concerns?: none voiced Form completed by?: Merline Hunter LPN Office Meds Depo-Provera 150 mg/mL intramuscular syringe Performing Provider: Nahomi Hopper CNM Performing Location: [facility] Administered by: Nelly Hunter LPN on 02/24/24 09:17 Dose Route Admin Location Dispensed Lot Number Expiration Date [facility] [employer] 150 mg IM rt. deltoid 1 mL [id number] 07/04/25 64900-838-45 Eugia Assessment & Plan Assessment & Plan Orders: Orders AMB Medroxyprogesterone Injection Patient Supplied Today Z30.42 - Encounter for surveillance of injectable contraceptive Medications: New Depo-Provera (medroxyprogesterone) 150 mg IM ONCE 1 mL 0RF NS Z30.42 - Encounter for surveillance of injectable contraceptive
== END 2024-02-24 09:46 | disposition home or self-care (01) ==
PROVIDERS: Visit Provider Advanced Practice Midwife
DX: Z30.42 Encounter for surveillance of injectable contraceptive (principal)

== ENCOUNTER → 2024-02-24 08:45 | Outpatient (BNVA) | payer OTHER, SELFPAY | PROVIDERS: Visit Provider Advanced Practice Midwife | DX: Z30.42 Encounter for surveillance of injectable contraceptive (principal) | CPT/HCPCS: 96372; 99211; J1050 ==

== ENCOUNTER 2024-03-03 14:15 | Outpatient (AMB) | payer OTHER, SELFPAY ==
--- NOTE | 2024-03-03 14:16 | A.OFFVIS_ITS ---
Vital Signs 03/03/24 14:17 Height 5 ft 2 in Weight 160 lb BMI 29.3 BP 102/64 Intake Visit Reasons: vag discharge Intake Note: pt c/o vaginal itching and discharge, on antbiotics Receiving Inspector: Receiving Inspector Present (Dorothy) Allergies mold Allergy (Verified 03/03/24 14:19) Unknown HPI Comments Details: Patient is here today with concerns of vaginal discharge and itching, and follow up for ultrasound results due to adnexal fullness. History of recent exposure to antibiotics. Last dose of Diflucan from her primary care was 4 days ago, since then her symptoms have intensified she is requesting a cream for topical use. Currently taking a probiotic. [facility] Medical History Cobalamin deficiency Migraines Acid reflux H. 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 Sexual orientation: Straight/Heterosexual Gender identity: Female Female Reproductive History Menstrual Age of Menarche: 12 Review of Systems Const All systems reviewed & are unremarkable except as noted in HPI and below Physical Exam Vital Signs: Last Vital Signs BP 102/64 03/03/24 14:17 BMI result Body Mass Index 29.3 Const General: cooperative, healthy appearing and no acute distress Orientation/consciousness: patient oriented x3 GI Inspection: Yes normal to inspection Palpation (GI): Soft to palpation and Other GI palpation findings present (Nontender) Rectal Exam - Female: visual inspection normal Other: External erythema General: Yes bladder normal to palpation External Female Exam: normal appearance of the urethra Speculum Exam - Vagina: normal appearance of the vagina, normal palpation and normal vaginal discharge (White and creamy) Speculum Exam - Cervix: normal appearance of the cervix and normal palpation Bimanual exam- vagina & uterus: normal bimanual exam, normal palpation, uterine size normal, bladder normal to palpation, normal palpation, uterine shape normal and non-tender Bimanual Exam- Adnexa, other: normal adnexae Neuro General: patient oriented x3 Results Reviewed Results Reviewed: [address] [address] Ultrasound Report Signed Patient: Kait Arteaga MR#: [id number] : 1995 Acct:[id number] Age/Sex: 28 / F ADM Date: 02/14/24 Loc: HO.US Attending Dr: Nahomi Hopper CNM Ordering Physician: Nahomi Hopper CNM Date of Service: 02/14/24 Procedure(s): US pelvic and transvaginal Accession Number(s): [id number] cc: Nahomi Hopper CNM~ EXAM: Pelvic Ultrasound CLINICAL INDICATION: Adnexal fullness COMPARISON: Pelvic ultrasound May 21, 2020 TECHNIQUE: The pelvis was evaluated using transabdominal and transvaginal imaging. FINDINGS: Retroverted uterus measures 6.3 x 3.7 x 3.9 cm in longitudinal by AP by transverse dimension. The endometrial stripe is not thickened and measures 0.4 cm. Some small calcifications are noted within the lower uterine segment. The left ovary measures approximately 2.7 x 1.6 x 1.6 cm and is normal. The right ovary measures approximately 3.1 x 1.6 x 1.7 cm and contains a simple appearing approximately 1 cm cyst. There is a small amount of free fluid in the pelvis. US/US pelvic and transvaginal IMPRESSION: 1. Normal thickness endometrial stripe. 2. Small amount of free pelvic fluid, nonspecific but likely physiologic in a female of this age. 3. 1 cm simple appearing right ovarian cyst. Electronically signed by: Cholo Wesley MD 03/02/2024 07:25 AM EDT Dictated By: Cholo Wesley MD Signed By: <Electronically signed by Cholo Wesley MD in OV> 03/02/24 0725 DD/ 1145 TD/TT: 02/14/24 1216 [place] Cashier: PD Assessment & Plan Assessment & Plan (1) Vaginitis and vulvovaginitis: Code(s): N76.0 - Acute vaginitis Plan Discussed: Ultrasound findings include small right-sided benign cyst, no follow up indicated. Treatment with topical cream, and additional Diflucan with 1 refill. Continue with probiotics. Return to the office p.r.n.. Has annual exam scheduled for October of 2024. All of her questions and concerns were addressed to the best of my ability and shared decision making. She is agreeable to the plan of care. This note is constructed using voice recognition software. While every effort has been made to ensure accuracy, assessment coordinator errors may have been included. Orders: Orders Bacterial Vaginosis Panel Today N89.8 - Other specified noninflammatory disorders of vagina Medications: New clotrimazole-betamethasone 1-0.05 % apply externally a thin coat to the area 1 appl topical BID 7 days 45 grams 0RF itching fluconazole 150 mg PO ONCE 1 day PRN 1 tab 1RF personal Coding Level of Care Code Est Pt Level 3 (34407) Diagnoses Vaginitis and vulvovaginitis N76.0
[2024-03-03 14:17] VITALS: BP 102/64; BMI 29.3
== END 2024-03-03 14:40 | disposition home or self-care (01) ==
LOC: HO.HWS 14:15
PROVIDERS: Visit Provider Advanced Practice Midwife
DX: N76.0 Acute vaginitis (principal)
CPT/HCPCS: 99213

== ENCOUNTER 2024-03-03 14:15 | Outpatient (REF) | payer OTHER, SELFPAY ==
[2024-03-04 11:18] LABS: Bacterial Vaginosis PCR POSITIVE (Negative); Candida Group PCR DETECTED (Not Detect); Candida glab krusei PCR NOT DETECTED (Not Detect); Trichomonas vaginalis PCR NOT DETECTED (Not Detect)
== END 2024-03-03 14:16 | disposition home or self-care (01) ==
LOC: HO.LAB 14:15
PROVIDERS: Visit Provider Advanced Practice Midwife
DX: N89.8 Other specified noninflammatory disorders of vagina (principal); N76.0 Acute vaginitis
CPT/HCPCS: 0352U; 99212

== ENCOUNTER 2024-04-07 11:05 | Emergency (ER) | payer OTHER, SELFPAY ==
[2024-04-07 11:25] VITALS: BP 130/90; PULSE 99; RESP 16; TEMP 36.3; O2SAT 98; BMI 30.2
--- NOTE | 2024-04-07 11:25 | ED_ITS ---
HPI - Nausea/Vomiting/Diarrhea General Chief complaint: Nausea/Vomiting/Diarrhea Stated complaint: diarrhea,nausea Time Seen by Provider: 04/07/24 12:33 Source: patient Mode of arrival: ambulatory Limitations: no limitations History of Present Illness ED Provider: Cydney Azul PA-C HPI Narrative: Patient is a 28 year old assigned female at with no reported medical history presenting to the emergency department today with diarrhea and concerns of c.diff. Patient states that she has been having diarrhea that is foul smelling and had an exposure to a c.diff positive patient and is concerned she may have c.diff. Patient denies any dizziness, lightheadedness, abdominal pain, nausea, vomiting, fever, chills, blurry vision, double vision, loss of vision, chest pain, difficulty breathing, shortness of breath, back pain, night sweats, pain with urination, increased urinary frequency, increased urinary urgency, blood in her urine or stool, syncope or a near syncopal episode, recent trauma or falls, bowel incontinence, bladder incontinence, or any other complaints at this time. MD elicited complaint: diarrhea Related Data Home Medications ?Medication ?Instructions ?Recorded ?Confirmed ibuprofen 800 mg tablet 800 mg PO Q8H PRN pain 05/15/20 09/16/21 citalopram 10 mg tablet 10 mg PO QAM 09/16/21 09/16/21 mecobalamin (vitamin B12) 10,000 mcg IM 09/16/21 09/16/21 mcg solution for injection famotidine 10 mg tablet 10 mg PO BID 09/29/22 amoxicillin 250 mg-potassium 1 tab PO BID 02/08/24 clavulanate 125 mg tablet cefpodoxime 200 mg tablet 200 mg PO BID 03/03/24 Previous Rx's ?Medication ?Instructions ?Recorded medroxyprogesterone 150 mg/mL 150 mg IM [id number] 90 days #1 mL 10/06/23 intramuscular suspension (Depo-Provera) valacyclovir 500 mg tablet 500 mg PO BID #90 tabs 11/18/23 (Valtrex) fluconazole 150 mg tablet 150 mg PO DAILY 1 dose #1 tab 02/09/24 clotrimazole-betamethasone 1 1 appl topical BID itching 7 days 03/03/24 %-0.05 % topical cream #45 grams fluconazole 150 mg tablet 150 mg PO ONCE PRN personal 1 day 03/03/24 #1 tab miconazole nitrate 2 % vaginal 1 appful vaginal BEDTIME 7 days 03/15/24 cream (Monistat 7) #45 grams Allergies Allergy/AdvReac Type Severity Reaction Status Date / Time mold Allergy Unknown Verified 04/07/24 11:27 Review of Systems 2 Constitutional: Constitutional: Reports no additional constitutional complaints, Denies chills, Denies fever(s) and Denies night sweats Eyes: Eyes: Reports no additional eye complaints, Denies blurry vision, Denies change in vision, Denies diplopia, Denies eye discharge, Denies loss of vision and Denies eye pain ENT: Denies dizziness Cardiovascular: Cardiovascular: Reports no additional cardiovascular complaints, Denies chest pain, Denies lightheadedness, Denies Loss of Consciousness and Denies dyspnea Respiratory: Respiratory: Reports no additional respiratory complaints and Denies dyspnea Gastrointestinal: Gastrointestinal: Reports no additional gastrointestinal complaints, Denies abdominal pain, Denies melena, Denies hematochezia, Denies change in bowel habits, Denies change in stool character and Reports diarrhea Genitourinary: Genitourinary: Denies hematuria, Denies urinary frequency, Denies dysuria, Denies urinary incontinence, Denies urinary hesitancy and Denies urinary urgency Musculoskeletal: Musculoskeletal: Reports no additional musculoskeletal complaints, Denies numbness and Denies tingling Neurologic: Denies dizziness, Denies loss of vision, Denies numbness and Denies tingling Psychiatric: Psychiatric: Reports no additional psychiatric complaints Endocrine: Endocrine: Reports no additional endocrine complaints Hematologic/Lymphatic: Hematologic/Lymphatic: Reports no additional hematologic/lymphatic complaints Allergic/Immunologic: Allergic/Immunologic: Reports no additional allergic/immunologic complaints [facility] Past Medical History Attestation statement: The following information was validated with the patient. Source: old records reviewed and nursing notes reviewed Medical History Cobalamin deficiency Migraines Acid reflux H. 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 Sexual orientation: Straight/Heterosexual Gender identity: Female Physical Exam 2 Vital Signs: Vital Signs: Last Vital Signs Temp 98.0 F 04/07/24 14:25 Pulse 82 04/07/24 14:25 Resp 18 04/07/24 14:25 BP 125/86 04/07/24 14:25 Pulse Ox 98 04/07/24 14:25 O2 Del Method Room Air 04/07/24 14:25 BMI result Body Mass Index 30.2 Const: General: cooperative, no acute distress, alert and awake Nutritional Appearance: well nourished Orientation/consciousness: patient oriented x3 Limitations: no limitations HEENT: Head: Yes normal to inspection and Yes atraumatic Ears: hearing grossly normal bilaterally and external ears normal General nose exam: Normal external nose present, no nasal discharge noted and no epistaxis Face and sinus: Yes normal facial exam, No abrasion and No laceration Mouth: Normal oral and palatal mucosa present, no drooling and no muffled voice Eyes: General: appearance normal, both eyes and all related structures P eriorbital: periorbital findings normal Eyelids: Yes eyelids normal C onjunctivae: conjunctivae normal Pupils: Equal, round and reactive pupils present EOM: EOMs intact bilaterally Neck: Neck: Yes normal visual inspection, Yes full ROM and Yes no lymphadenopathy Chest: Chest palpation & inspection: normal inspection of the chest Resp: Effort & Inspection: normal respiratory effort and able to speak in complete sentences GI: Inspection: Yes normal to inspection Neuro: General: patient oriented x3 and moves all extremities Cranial nerves: Yes Equal, round and reactive pupils present Cognition (Neuro): n ormal cognition Extrem: General: Yes normal to inspection, Yes full ROM and Yes capillary refill normal Psych: Appearance: grossly normal Mental Status: mental status grossly normal Affect: normal affect Attitude: cooperative Thought process: N ormal thought process present Thought content: Normal thought content present Insight: Good insight present (Psych) Course Course Course Narrative: This is a Rapid Medical Examination (RME) performed by Jovan Gavin PA-C in triage. Full HPI, ROS, assessment and treatment plan per primary provider in the Main ED. 28 yo female hx of GERD, h pylori here for eval loose stools x3 days. 3 episodes of watery diarrhea today. reports assoc abd cramping. dec PO intake secondary to diarrhea. 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 would like to be tested. hx of h pylori. recently saw her PCP who referred her to gastro. has not had f/u appointment with them. no urinary sx. +well appearing. abd soft, nd/nt. Plan: labs, hcg, stool panel/ gi testing Medical Decision Making Medical Decision Making [facility] Narrative: Patient is a 28 year old assigned female at with no reported medical history presenting to the emergency department today with diarrhea and concern for c.diff. Patient's physical exam was unremarkable. Patient's blood work was unremarkable. Patient's urine showed no acute process. Patient's c.diff and stool panel were negative. I explained my physical exam findings as well as all test results to the patient. I answered all questions asked by the patient. I stressed the importance of the patient taking her medication as directed (either prescribed or as the over the counter packaging recommends). I stressed the importance of the patient following up with her primary care provider. I stressed the importance of the patient returning to the emergency department immediately if her symptoms were to worsen or if she were to develop any dizziness, shortness of breath, difficulty breathing, chest pain, blurry vision, loss of vision, nausea, vomiting, abdominal pain, fever, chills, back pain, or any other complaints. Patient verbalized agreement and understanding with this treatment plan and discharge. Differential Diagnosis Differential Diagnoses: The differential diagnosis associated with the presentation includes Diarrhea Viral illness Colitis Admission/Observation Consideration of admission/observation: Escalation of care including admission/observation considered Patient would have been admitted to the hospital had her work up had any findings where hospital admission was appropriate and her clinical presentation warranted hospital admission. Lab Data [facility] Lab Attestation statement: I reviewed the patient's lab results. My interpretation of these results are in the [facility] Rationale portion of this note. 04/07/24 11:46 04/07/24 11:46 Labs: Lab Results 04/07/24 04/07/24 04/07/24 Range/Units 11:45 11:46 13:14 WBC 5.5 (4.8-10.8) X10*3/uL RBC 4.76 (4.20-5.50) X10*6/uL Hgb 14.6 (12.0-16.0) g/dl Hct 42.4 (37.0-47.0) % MCV 89.1 (80.0-98.0) fL MCH 30.7 (27.0-33.0) pg MCHC 34.4 (31.0-35.0) g/dl RDW 12.1 (11.0-16.0) % Plt Count 246 (160-400) X10*3/uL MPV 9.9 (9.4-12.3) fL Immature Gran % (Auto) 0.2 (0.0-0.4) % Neut % (Auto) 50.7 (45-73) % Lymph % (Auto) 35.3 (20-40) % [place] % (Auto) 9.8 (2-11) % Eos % (Auto) 3.3 (0-4) % Baso % (Auto) 0.7 (0-2) % Lymph # (Auto) 1.9 (1.2-4.9) X10*3/uL [place] # (Auto) 0.5 (0.1-1.2) X10*3/uL Eos # (Auto) 0.2 (0.0-0.4) X10*3/uL Baso # (Auto) 0.0 (0.0-0.2) X10*3/uL Abs Immat Gran (auto) 0.01 (0.00-0.03) X10*3/uL Absolute Neuts (auto) 2.8 (2.0-8.3) x10*3/uL Absolute Nucleated RBC 0.000 (0.0-0.012) X10*3/uL Nucleated RBC % (auto) 0.0 (0.0-0.2) /100WBC Sodium 143 (135-145) mmol/L Potassium 3.9 (3.3-5.1) mmol/L Chloride 109 H (96-108) mmol/L Carbon Dioxide 29 (22-29) mmol/L Anion Gap 9 L (12-20) BUN 12 (9-16) mg/dL Creatinine 0.76 (0.5-1.4) mg/dL Estim Creat Clear Calc 103.4 Estimated GFR > 60 Random Glucose 77 (60-115) mg/dL Calcium 9.7 (8.4-10.2) mg/dL Magnesium 2.1 (1.6-2.6) mg/dL Total Bilirubin 0.6 (0.0-1.0) mg/dL AST 24 (5-31) U/L ALT 20 (0-31) U/L Alkaline Phosphatase 81 (39-117) U/L Total Protein 7.8 (6.5-8.0) g/dL Albumin 4.6 (3.5-5.0) g/dL Lipase 25 (8-78) U/L Beta HCG, Quant < 2 mIU/mL Stl C. cayetanensis PCR Not Detected (Not Detect.) Stool Rotavirus A PCR Not Detected (Not Detect.) Stl Adenov F 40/41 PCR Not Detected (Not Detect.) Stool Astrovirus (PCR) Not Detected (Not Detect.) Stool Campylobacter PCR Not Detected (Not Detect.) Stool Cryptosporidium PCR Not Detected (Not Detect.) Stl Sh Tox Pr E STEC PCR Not Detected (Not Detect.) Stool E coli O157 PCR Not applicable (Not Detect.) Stl Enterotoxigenic E PCR Not Detected (Not Detect.) Stool EPEC (PCR) Not Detected (Not Detect.) Stool EAEC (PCR) Not Detected (Not Detect.) Stl E. histolytica PCR Not Detected (Not Detect.) Stool Giardia Lamblia PCR Not Detected (Not Detect.) Stl P. shigelloides PCR Not Detected (Not Detect.) Stool Salmonella PCR Not Detected (Not Detect.) Stool Sapovirus (PCR) Not Detected (Not Detect.) Stl Shigella/EIEC PCR Not Detected (Not Detect.) St Y.enterocolitica PCR Not Detected (Not Detect.) Stool Vibrio (PCR) Not Detected (Not Detect.) Stl Vibrio cholerae PCR Not Detected (Not Detect.) Stl Norovirus GI/GII PCR Not Detected (Not Detect.) C. difficile Tox B Gene NEGATIVE (Negative) Discharge Plan Discharge Clinical Impression: Diarrhea Patient Disposition: Home, Self-Care Instructions: Acute Diarrhea (ED) Additional Instructions: Follow up with your primary care provider. Return to the emergency department immediately if your symptoms worsen or if you develop any dizziness, shortness of breath, difficulty breathing, chest pain, blurry vision, loss of vision, nausea, vomiting, abdominal pain, fever, chills, back pain, or any other complaints. Please see the information below about our Patient Portal. If you are not yet enrolled in the [facility] Patient Portal, you will receive an enrollment email invitation following your visit to any [facility] setting. You may also self-enroll in the Patient Portal by visiting our website: [email or web address] The following information is required to access the Patient Portal: - Your [facility] Medical Record Number - Your personal home email address (must match what is in your electronic medical record, Registration staff can assist with this) - Name - Date of Capabilities of the Patient Portal: - Message some providers - View upcoming appointments - Access your health summary, medical history, and visit history - View current conditions and allergies - View procedure and lab results - View your medications, including guidelines, side effects, and precautions - Complete pre-appointment questionnaires requested by your provider - Ready summary reports of your office visits and procedures To access the Patient Portal Mobile Perri, follow these directions: - Search [employer] in the Perri Store or XbyMe Store - Download the Perri - Search for [facility] - Enter your login/password Prescriptions: No Action valacyclovir [Valtrex] 500 mg tablet 500 mg PO BID Qty: 90 0RF Rx Instructions: take with onset on of symptoms, take for three days, may repeat dosing per episode prn fluconazole 150 mg tablet 150 mg PO DAILY Qty: 1 0RF Rx Instructions: administer on day 1 of therapy miconazole nitrate [Monistat 7] 2 % cream 1 appful vaginal BEDTIME 7 Days Qty: 45 0RF ibuprofen 800 mg tablet 800 mg PO Q8H PRN (Reason: pain) citalopram 10 mg tablet 10 mg PO QAM mecobalamin (vitamin B12) 10,000 mcg recon soln IM famotidine 10 mg tablet 10 mg PO BID medroxyprogesterone [Depo-Provera] 150 mg/mL suspension 150 mg IM [id number] 90 Days Qty: 1 4RF amoxicillin-pot clavulanate 250-125 mg tablet 1 tab PO BID cefpodoxime 200 mg tablet 200 mg PO BID clotrimazole-betamethasone 1-0.05 % cream 1 appl topical BID 7 Days Qty: 45 0RF Rx Instructions: apply externally a thin coat to the area fluconazole 150 mg tablet 150 mg PO ONCE PRN (Reason: personal) 1 Days Qty: 1 1RF Referrals: [facility] Family Medicine [Provider Group] (Call to establish and follow up with a primary care provider. If you already have a primary care provider, please follow up with them.) [facility] Primary [facility] [Provider Group] (Call to establish and follow up with a primary care provider. If you already have a primary care provider, please follow up with them.) [facility] Primary Care,Jesse [Provider Group] (Call to establish and follow up with a primary care provider. If you already have a primary care provider, please follow up with them.) Stand Alone Forms: Work/School Release Interventions: ED Discharge Assessment Last Done: 04/07/24 14:25 Discharge Date/Time: 04/07/24 14:31 Print Language: Yoruba
[2024-04-07 11:56] LABS: MANUAL DIFF FLAG NO
[2024-04-07 12:00] LABS: Basophils Percent Auto 0.7 % (0-2); Eosinophils Absolute Auto 0.2 X10*3/uL (0.0-0.4); Eosinophils Percent Auto 3.3 % (0-4); Hematocrit 42.4 % (37.0-47.0); Hemoglobin 14.6 g/dl (12.0-16.0); Imm Gran Abs Auto 0.01 X10*3/uL (0.00-0.03); Imm Gran Pct Auto 0.2 % (0.0-0.4); Lymphocytes Absolute Auto 1.9 X10*3/uL (1.2-4.9); Lymphocytes Percent Auto 35.3 % (20-40); Mean Corpuscular HGB Conc 34.4 g/dl (31.0-35.0); Mean Corpuscular Hemoglobin 30.7 pg (27.0-33.0); Mean Corpuscular Volume 89.1 fL (80.0-98.0); Mean Platelet Volume 9.9 fL (9.4-12.3); Monocytes Absolute Auto 0.5 X10*3/uL (0.1-1.2); Monocytes Percent Auto 9.8 % (2-11); Neutrophils Absolute Auto 2.8 x10*3/uL (2.0-8.3); Neutrophils Percent Auto 50.7 % (45-73); Platelet Count 246 X10*3/uL (160-400); Red Blood Count 4.76 X10*6/uL (4.20-5.50); Red Cell Distribution Width 12.1 % (11.0-16.0); White Blood Count 5.5 X10*3/uL (4.8-10.8)
[2024-04-07 12:26] LABS: Alanine Aminotransferase 20 U/L (0-31); Albumin Level 4.6 g/dL (3.5-5.0); Alkaline Phosphatase 81 U/L (39-117); Anion Gap 9 (12-20); Aspartate Amino Transferase 24 U/L (5-31); Bilirubin Total 0.6 mg/dL (0.0-1.0); Blood Urea Nitrogen 12 mg/dL (9-16); Calcium 9.7 mg/dL (8.4-10.2); Carbon Dioxide 29 mmol/L (22-29); Chloride 109 mmol/L (96-108); Creatinine Clr Calc Pharmacy 103.4; Estimated Glomerular Filt Rate > 60; Glucose Random 77 mg/dL (60-115); Lipase 25 U/L (8-78); Magnesium 2.1 mg/dL (1.6-2.6); Potassium 3.9 mmol/L (3.3-5.1); Sodium 143 mmol/L (135-145); Total Protein 7.8 g/dL (6.5-8.0)
[2024-04-07 12:28] LABS: HCG Quantitative < 2 mIU/mL
--- NOTE | 2024-04-07 12:46 | PC.NURSE ---
Pt was recently on back to back antibiotics for bilateral infections. Reports abdominal pain, N/V, poor appetite and diarrhea. 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 Believes she may of contracted it, endorses her stools smell like it.
--- NOTE | 2024-04-07 12:56 | PC.NURSE ---
Pt provided with hats in the toilet to provide stool sample, pt unable to produce sample at this time.
[2024-04-07 14:09] LABS: CDiff Gene PCR NEGATIVE (Negative)
[2024-04-07 14:25] VITALS: BP 125/86; PULSE 82; RESP 18; TEMP 36.7; O2SAT 98
[2024-04-07 14:52] LABS: Adenovirus F 40/41 Not Detected (Not Detect.); Astrovirus Not Detected (Not Detect.); Campylobacter Not Detected (Not Detect.); Cryptosporidium Not Detected (Not Detect.); Cyclospora cayetanensis Not Detected (Not Detect.); E. coli EAEC Not Detected (Not Detect.); E. coli EPEC Not Detected (Not Detect.); E. coli ETEC Not Detected (Not Detect.); E. coli STEC Not Detected (Not Detect.); Entamoeba histolytica Not Detected (Not Detect.); Giardia lamblia Not Detected (Not Detect.); Norovirus GI/GII Not Detected (Not Detect.); Plesiomonas shigelloides Not Detected (Not Detect.); Rotavirus A Not Detected (Not Detect.); Salmonella Not Detected (Not Detect.); Sapovirus Not Detected (Not Detect.); Shigella sp./EIEC Not Detected (Not Detect.); Vibrio Not Detected (Not Detect.); Vibrio Cholerae Not Detected (Not Detect.); Yersinia enterocolitica Not Detected (Not Detect.)
== END 2024-04-07 14:31 | disposition home or self-care (01) ==
PROVIDERS: Physician Assistant Medical; Emergency Provider Student in an Organized Health Care Education/Training Program
DX: R19.7 Diarrhea, unspecified (principal)
CPT/HCPCS: 36415; 80053; 83690; 83735; 84702; 85025; 87493; 87507; 99283; 99284

== ENCOUNTER 2024-05-12 08:44 | Outpatient (AMB) | payer OTHER, SELFPAY ==
[2024-05-12 09:13] VITALS: BMI 28.4
--- NOTE | 2024-05-12 09:13 | AM.OFFVISNUR ---
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 Pt denies new medications or new medical problems. No c/o currently. Pt tolerated injection well. Pt will schedule next injection in 12 weeks. Pt verbalizes understanding and agrees with plan. No further questions. Office Procedures Depo Questionnaire If YES to any of the following questions, please consult a provider. Date of last injection: 02/24/24 Date of last gynecology exam: 10/26/23 Menstrual pattern since last injection has been: Not Applicable Irregular bleeding?: No Breast lumps or other breast changes?: No Changes in weight or appetite?: No Depression or changes in mood?: No Abnormal hair growth or loss?: No Skin problems (rash, acne, discoloration)?: No Pain at the injection site?: No Headaches?: No Nervousness?: No Abdominal pain or cramping?: No Dizziness or nausea?: No Fatigue or weakness?: No Decrease in sexual drive?: No Chest pain or shortness of breath?: No Swelling in arms or legs?: No Form completed by?: Antonia Bran RN Office Meds Depo-Provera 150 mg/mL intramuscular syringe Performing Provider: Nahomi Hopper CNM Performing Location: [facility] Administered by: Antonia Bran on 05/12/24 09:16 Dose Route Admin Location Dispensed Lot Number Expiration Date [facility] [employer] Juice 150 mg IM right deltoid 1 mL [id number] 03/04/26 59210-059-81 Keep[employer] Assessment & Plan Assessment & Plan (1) Encounter for management and injection of depo-Provera: Code(s): Z30.42 - Encounter for surveillance of injectable contraceptive Category: Medical Plan Pt will schedule next injection in 12 weeks. She will call for any questions or concerns. Orders: Orders AMB Medroxyprogesterone Injection Patient Supplied Today Z30.42 - Encounter for surveillance of injectable contraceptive Medications: New Depo-Provera (medroxyprogesterone) 150 mg IM ONCE 1 mL 0RF NS Z30.42 - Encounter for surveillance of injectable contraceptive Patient Instructions: Pt will schedule next injection in 12 weeks. She will call for any questions or concerns.
== END 2024-05-12 09:09 | disposition home or self-care (01) ==
PROVIDERS: Visit Provider Advanced Practice Midwife
DX: Z30.42 Encounter for surveillance of injectable contraceptive (principal)

== ENCOUNTER → 2024-05-12 08:44 | Outpatient (BNVA) | payer OTHER, SELFPAY | PROVIDERS: Visit Provider Advanced Practice Midwife | DX: Z30.42 Encounter for surveillance of injectable contraceptive (principal) | CPT/HCPCS: 96372; 99211; J1050 ==

== ENCOUNTER 2024-08-03 08:42 | Outpatient (AMB) | payer OTHER, SELFPAY ==
--- NOTE | 2024-08-03 09:11 | AM.OFFVISNUR ---
Vital Signs 08/03/24 09:12 Height 5 ft 2 in Weight 163 lb BMI 29.8 Intake Visit Reasons: DEPO Allergies mold Allergy (Verified 04/07/24 11:27) Unknown Nursing Note Kait is here for her scheduled Depo provera injection. No c/o, no new medications or medical diagnoses. Pt tolerated injection well. Pt will schedule her next Depo injection in 12 weeks. Pt verbalizes understanding and agrees with plan. No further questions. Office Procedures Depo Questionnaire If YES to any of the following questions, please consult a provider. Date of last injection: 05/12/24 Date of last gynecology exam: 10/26/23 Menstrual pattern since last injection has been: Not Applicable Irregular bleeding?: No Breast lumps or other breast changes?: No Changes in weight or appetite?: No Depression or changes in mood?: No Abnormal hair growth or loss?: No Skin problems (rash, acne, discoloration)?: No Pain at the injection site?: No Headaches?: No Nervousness?: No Abdominal pain or cramping?: No Dizziness or nausea?: No Fatigue or weakness?: No Decrease in sexual drive?: No Chest pain or shortness of breath?: No Swelling in arms or legs?: No Form completed by?: Antonia Bran RN Office Meds Depo-Provera 150 mg/mL intramuscular syringe Performing Provider: Nahomi Hopper CNM Performing Location[place] [facility] Administered by: Antonia Bran on 08/03/24 09:16 Dose Route Admin Location Dispensed Lot Number Expiration Date [facility] [employer] 150 mg IM right deltoid 1 mL [id number] 10/02/25 46632-617-60 MYLAN Assessment & Plan Assessment & Plan (1) Encounter for management and injection of depo-Provera: Comment: Pt will schedule her next Depo injection in 12 weeks. Pt verbalizes understanding and agrees with plan. No further questions. Code(s): Z30.42 - Encounter for surveillance of injectable contraceptive Category: Medical Orders: Orders AMB Medroxyprogesterone Injection Patient Supplied Today Z30.42 - Encounter for surveillance of injectable contraceptive Medications: New Depo-Provera (medroxyprogesterone) 150 mg IM ONCE 1 mL 0RF NS Z30.42 - Encounter for surveillance of injectable contraceptive Coding Level of Care Code Established Pt Est Pt Level 1 (29532) Patient Type Established History Problem Focused Medical Decision Making Straight Forward Diagnoses Encounter for management and injection of depo-Provera Z30.42 Time Spent (min) 20
[2024-08-03 09:12] VITALS: BMI 29.8
--- OUTSIDE RECORDS SUMMARY | 2024-08-03 11:26 | XMS_ITS | Clinical Summary ---
Author Organization [facility] [address] [place] [address] Address [address] [place] [address] Phone Care Team Providers Care Process Environmental Technician Name Role Phone Catie Baca MD Primary Care Prov ider Allergies Active Allergy Reactions Criticality Noted Date Comments Mold 08/27/2023 Other 08/27/2023 Pesticides and roaches Medications Medication Sig Dispensed Refills Start Date End Date Status cholecalciferol (VITAMIN D-3) 1,250 mcg (50,000 unit) capsule Take 1 Capsule by mouth once a week. 12/30/2023 Active cyanocobalamin (VITAMIN B-12) 1,000 mcg/mL injection Inject 1 mL into the muscle every 30 days. 06/03/2023 Active cetirizine (ZyrTEC) 10 mg tablet Take 1 tablet (10 mg total) by mouth 1 (one) time each day. 12/07/2023 Active EPINEPHrine (EpiPen 2-Perry) 0.3 mg/0.3 mL injection Inject 1 Dose as directed Once. 12/07/2023 Active fluticasone propionate (FLONASE) 50 mcg/actuation nasal spray 2 Sprays by Nasal route daily. Two sprays in each nostril daily for a week. 09/24/2021 Active valACYclovir (VALTREX) 500 mg tablet PLEASE SEE ATTACHED FOR DETAILED DIRECTIONS 12/24/2020 Active medroxyPROGESTERone 150 mg/mL injection Inject 150 mg into the muscle Every 3 Months. Active citalopram (CeleXA) 20 mg tablet Take 1 tablet (20 mg total) by mouth 1 (one) time each day. 30 each 5 05/11/2024 Active mupirocin (BACTROBAN) 2 % ointment Apply topically 3 (three) times a day. Active pantoprazole (PROTONIX) 20 mg EC tablet Take 1 tablet (20 mg total) by mouth 1 (one) time each day before breakfast. Do not crush, chew, or split. Active Hospital, Clinic, or Other Facility Administered Medication Ordered Dose Route Frequency Start Date End Date Status cyanocobalamin (VITAMIN B-12) injection 1,000 mcgIndications:Vitamin B12 deficiency 1000 mcg IM Every 30 days 05/10/2024 Active Active Problems Problem Noted Date Diagnosed Date Chronic ear pain, bilateral 04/07/2024 Vitamin D deficiency 03/24/2023 Vitamin B12 deficiency 09/16/2020 Paresthesia and pain of both upper extremities 0 09/12/2020 Overview (04/07/2024): Cervical neck -ray normal 09/2020 Carpal tunnel syndrome, right 05/31/2020 Breast lump 07/12/2018 Overview (04/07/2024): Benign-appearing solid mass noted on breast ultrasound, follow-up six-month ultrasound due in December 2018; six-month follow-up ultrasound showed stability. Pending another six-month follow-up ultrasound and then yearly for the next 2 years. 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 Chronic seasonal allergic rhinitis 08/29/2017 Encounters Date Type Department Care Team Description 07/12/2024 3:45 PM EST Clinical Support Adult Medicine [address] [phone] Vitamin B12 deficiency (Primary Dx) 06/07/2024 2:00 PM EST Clinical Support Adult [address] [phone] Vitamin B12 deficiency (Primary Dx) 06/02/2024 8:30 AM EST Office Visit Adult [address] [phone] Shannon Hogan PA Recurrent otitis media, bilateral (Primary Dx); Bilateral serous otitis media, unspecified chronicity; Vagina, candidiasis 05/24/2024 Telephone Adult Medicine [address] [phone] Catie Amezquita MD Referral 05/11/2024 7:30 AM EST Office Visit Adult [address] [phone] Malena Saunders PA Anxiety and depression (Primary Dx) 05/10/2024 4:00 PM EST Clinical Support [address] [phone] Vitamin B12 deficiency (Primary Dx) from Last 3 Months Immunizations Name Administration Dates Next Due DTP 05/25/1995,03/25/1995,01/20/1995 DTaP (Infanrix) 6wks to less than 7yo 12/11/1999 ,07/26/1996 QPlI-EUA-EPJ (Pentacel) 2mo to less than 5yo 11/16/1995,05/25/1995,03/25/1995,01/20 HPV, Quadrivalent 07/24/2008,03/23/2008,02/26/20 07 Hepatitis A Adult (Havrix; V aqta) 19yo and older 11/06/2015 Hepatitis A Pediatric (Havri x; Vaqta) 12mo to less than 19yo 09/03/2014 Hepatitis B Pediatric (Enger ix B; Recombivax HB) to less than 20 yo 11/16/1995,01/20/1995,1994 IPV Inactivated polio (Ipol) 6wks and older 12/11/1999,05/25/1995,03/25/1995,01/20 Influenza Quadravalent, MDCK , 0.5ml, preservative free (Flucelvax) 6mo and older 09/12/2020 Influenza Quadravalent, MDCK , 0.5ml, with preservative (Flucelvax) 6mo and older 04/20/2018,03/11/2017 Influenza, Unspecified 07/05/2022 MMR, measles mumps and rubel la Live (Priorix; M-M-R II) 12mo and older 11/18/1998,11/16/1995 Meningococcal MCV4P 11/06/2015,02/25/2007 Td Tetanus diptheria (Tdvax) 7yo and older 02/21/2016,02/18/2006 Tdap Tetanus diptheria acell ular pertussis (Boostrix; Adacel) 7yo and older 09/15/2017 Varicella live (Varivax) 12m o and older 03/23/2008,02/12/1999 Surgical History Surgery Date Site/Laterality Comments OTHER SURGICAL HISTORY PROCEDURE: DENIES PREVIOUS SURGERY Medical History Medical History Date Comments Chronic seasonal allergic rhinitis 08/29/2017 DX:Chronic seasonal allergic rhinitis Leukopenia 10/05/2017 DX:Leukopenia; C OMMENT: 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, 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 Overweight 10/05/2017 DX:Overweight Anxiety and depression 03/21/2018 DX:Anxiet y and depression Epigastric discomfort DX:Epigast umu discomfort Esophageal reflux DX:Esophageal reflux Diarrhea DX:Diarrhea Family History Medical History Relation Name Comments Asthma Brother diet controlled DM Suicide Attempts Father Diabetes Other 2nd cousin Relation Name Status Comments Brother Father Other Social History Tobacco Use Types Packs/Day Years Used Date Smoking Tobacco: Never Smokeless Tobacco: Never Tobacco Cessation:Counseling Given: Not Answered Alcohol Use Standard Drinks/Week Comments Not Currently 0 (1 standard drink = 0.6 oz pur e alcohol) Housing Instability Answer Date Recorde d Are you worried that in the next 2 months you may not have stable housing? No 05/11/2024 Food Access & Nutrition Answer Date Rec orded Do you have access to a vari ety of food including fruits and vegetables? Yes 05/11/2024 Access to Healthcare Answer Date Record ed Within the last 3 months, ho w many times did you visit the emergency department for your medical care? 2 05/11/2024 Health Literacy Answer Date Recorded How often do you need to hav e someone help you when you read instructions, pamphlets, or other written material from your doctor or pharmacy? Never 05/11/2024 Caregiver: How often do you need to have someone help you when you read instructions, pamphlets, or other written material from your doctor or pharmacy? Not on file 05/11/2024 Financial Risk Answer Date Recorded How hard is it for you to pa y for the very basics like food, housing, medical care, and air conditioning / heating? Not very hard 05/11/2024 Transportation Answer Date Recorded Has the lack of transportati on kept you from meetings, work, or from getting things needed for daily living? Not on file 05/11/2024 Has the lack of transportati on kept you from medical appointments or from getting medications? No 05/11/2024 Social Isolation Answer Date Recorded How often do you feel lonely or isolated from th ose around you? Never 05/11/2024 Food Risk Answer Date Recorded Within the past 12 months we worried whether our food would run out before we got money to buy more. Never true 05/11/2024 Within the past 12 months th e food we bought just didn't last and we didn't have money to get more. Never true 05/11/2024 Education Answer Date Recorded Do you think completing more education or training, like finishing a GED, going to college, or learning a trade, would be helpful for you? No 05/11/2024 Employment and Income Answer Date Recor ded During the last four weeks, have you been actively looking for work? No 05/11/2024 Living Situation Answer Date Recorded What is your living situation? 1 07/11/2023 Sex and Gender Information Value Date Recorded Sex Assigned at Not on file Gender Identity Not on file Sexual Orientation Not on file Job Start Date Occupation Industry Not on file Not on file Not on file Obstetrics History Last Filed Vital Signs Vital Sign Reading Time Taken Comments Blood Pressure 112/80 06/02/2024 8:28 AM EST Pulse 78 06/02/2024 8:28 AM EST Temperature 36.5 ??C (97.7 ??F) 06/02/2024 8:28 AM ES T Respiratory Rate 14 06/02/2024 8:28 AM EST Oxygen Saturation 99% 06/02/2024 8:28 AM EST Inhaled Oxygen Concentration - - Weight 72 kg (158 lb 12.8 oz) 06/02/2024 8:28 AM EST Height 157.5 cm (5' 2 ) 06/02/2024 8:28 AM EST Body Mass Index 29.04 06/02/2024 8:28 AM EST Plan of Treatment Upcoming Encounters Date Type Department Care Team (Late st Contact Info) Description 08/09/2024 3:45 PM EST Clinical Support [address] [phone] 10/04/2024 8:30 AM EDT Office Visit [address] [phone] Catie Baca MD [address] [place] [address] 03/07/2025 7:30 AM EDT Office Visit [address] [phone] Catie Baca MD [address] [place] [address] [phone] Health Maintenance Due Date Last Done Comments Hepatitis C Screening 06/13/2022 COVID-19 Vaccine ( season) 2024 06/22/2021, 05/30/2021 Influenza Vaccine (#1) 2024 , 09/12/2020, 04/20/2018, Additional history exists Cervical Cancer Screening: Pap Smear 09/16/2024 09/16/2021 Depression Screening 02/16/2025 02/17/2024 Social Influencers of Health Screening 05/11/2025 05/11/2024 DTaP,Tdap,and Td Vaccines (9 - Td or Tdap) 09/16/2027 09/15/2017, 02/21/2016, 02/18/2006, Additional history exists Cholesterol Screening (Lipid Panel) 12/28/2028 12/29/2023, 12/29/2023 HIB Vaccines Completed 11/16/1995, 05/06, 03/25/1995, Additional history exists Hepatitis B Vaccines Completed 11/16/1995, 01/20/1995, 1994 MMR Vaccines Completed 11/18/1998, 11/16/1995 IPV Vaccines Completed 12/11/1999, 11/02, 05/25/1995, Additional history exists Varicella Vaccines Completed 03/23/2008, 02/12/1999 HPV Vaccines Completed 07/24/2008, 03/05, 02/25/2007 Hepatitis A Vaccines Aged Out 11/06/2015, 09/04/19 15 No longer eligible based on patient's age to complete this topic Meningococcal ACWY Vaccine Aged Out 11/06/2015, No longer eligible based on patient's age to complete this topic HIV Screening Completed 02/24/2022 Pneumococcal Vaccine: Pediatrics (0 to 5 Years) and At-Risk Patients (6 to 64 Years) Aged Out No longer eligible based on patient's age to complete this topic RSV Immunization Patients Under 20 months Aged Out No longer eligible based on patient's age to complete this topic Procedures Procedure Name Priority Date/Time Associated Diagnosis Comments DEPRESSION SCREENING Routine 02/17/2024 LIPID PANEL Routine 12/29/2023 HIV SCREENING Routine 02/24/2022 PAP SMEAR Routine 09/16/2021 from Last 3 Months or Most Recently Relevant to Health Maintenance Results * Depression Screening (02/17/2024) [facility] Depression Screening ABSTRACTED Historical Provider MD FABIANO MCCLURE E * Lipid panel (12/29/2023) [facility] LDL/HDL Ratio 3 0 - 4 Triglycerides 35 0 - 150 mg/dL Cholesterol 160 0 - 200 mg/dL HDL 59 40 mg/dL LDL Cholesterol 94 0 - 100 mg/dL Blood Venous blood specimen / Unknown Historical Provider LAB BLOOD ORDERAB LES * HIV Screening (02/24/2022) [facility] HIV Screening ABSTRACTED Historical Provider MD FABIANO MCCLURE E * Pap Smear (09/16/2021) [facility] Pap smear no interpretation , abstracted Historical Provider MD FABIANO Carrero from Last 3 Months or Most Recently Relevant to Health Maintenance Care Teams Process Environmental Technician Relationship Specialty Start Date End Date Catie Baca MD [address] [place] [address] [phone] PCP - General Internal Medicine 02/03/22
--- OUTSIDE RECORDS SUMMARY | 2024-08-03 11:26 | XMS_ITS | Encounter Summary ---
Author Organization [facility] Address [address] [place] [address] Care Team Providers Care Recovery Rn Name Role Phone Catie Baca MD Primary Care Prov ider Encounter Details Date Type Department Care Team (Latest Contact Info) Description 07/12/2024 3:45 PM EST Clinical Support Adult Medicine [address] [phone] Vitamin B12 deficiency (Primary Dx) Social History Tobacco Use Types Packs/Day Years Used Date Smoking Tobacco: Never Smokeless Tobacco: Never Alcohol Use Standard Drinks/Week Comments Not Currently [...] file Not on file Not on file documented as of this encounter Progress Notes * Charlette Loza MA - 07/12/2024 3:45 PM EST B12 injection given left deltoid. See medication/immunization tab. Patient to remain 20 minutes. documented in this encounter Plan of Treatment Upcoming Encounters Date Type Department Care Team (Late st Contact Info) Description 08/09/2024 3:45 PM EST Clinical Support Adult [address] [phone] 10/04/2024 8:30 AM EDT Office Visit [address] [phone] Catie Baca MD [address] [place] [phone] 03/07/2025 7:30 AM EDT Office Visit Adult Medicine [address] [phone] Catie Baca MD [address] [place] [address] documented as of this encounter Visit Diagnoses Diagnosis Vitamin B12 deficiency- Primary Other B-complex deficiencies documented in this encounter Administered Medications Active Administered Medications - up to 3 most recent administrations Medication Order MAR Action Action Date Dose Rate Site cyanocobalamin (VITAMIN B-12) injection 1,000 mcg 1,000 mcg, intramuscular, Every 30 days, First dose on Wed05/10/24 at 0900 Given 07/12/2024 2:40 PM EST 1,000 mcg Left Deltoid Given 06/07/2024 1:54 PM EST 1,000 mcg Le ft Deltoid documented in this encounter Care Teams Recovery Rn Relationship Specialty Start Date End Date Catie Baca MD [address] [place] [address] PCP - General Internal Medicine 02/03/22 documented as of this encounter
== END 2024-08-03 09:09 | disposition home or self-care (01) ==
PROVIDERS: Visit Provider Advanced Practice Midwife
DX: Z30.42 Encounter for surveillance of injectable contraceptive (principal)

== ENCOUNTER → 2024-08-03 08:42 | Outpatient (BNVA) | payer OTHER, SELFPAY | PROVIDERS: Visit Provider Advanced Practice Midwife | DX: Z30.42 Encounter for surveillance of injectable contraceptive (principal) | CPT/HCPCS: 96372; 99211; J1050 ==

== ENCOUNTER 2024-10-24 09:56 | Outpatient (AMB) | payer OTHER, SELFPAY ==
[2024-10-24 10:07] VITALS: BMI 29.3
--- NOTE | 2024-10-24 10:07 | AM.OFFVISNUR ---
Vital Signs 10/24/24 10:07 Height 5 ft 2 in Weight 160 lb 2 oz BMI 29.3 Intake Visit Reasons: Depo Allergies mold Allergy (Verified 04/07/24 11:27) Unknown Nursing Note Kait is here today for her scheduled Depo-provera inj. She denies any problems or concerns. Follow up in 12 weeks for next inj. AG is scheduled for 12/27/24. Office Procedures Depo Questionnaire If YES to any of the following questions, please consult a provider. Date of last injection: 08/03/24 Date of last gynecology exam: 10/06/23 Menstrual pattern since last injection has been: Not Applicable Irregular bleeding?: No Breast lumps or other breast changes?: No Changes in weight or appetite?: No Depression or changes in mood?: No Abnormal hair growth or loss?: No Skin problems (rash, acne, discoloration)?: No Pain at the injection site?: No Headaches?: No Nervousness?: No Abdominal pain or cramping?: No Dizziness or nausea?: No Fatigue or weakness?: No Decrease in sexual drive?: No Chest pain or shortness of breath?: No Swelling in arms or legs?: No Form completed by?: Merline Hunter LPN Office Meds Depo-Provera 150 mg/mL intramuscular syringe Performing Provider: Nahomi Hopper CNM Performing Location: [facility] Administered by: Nelly Hunter LPN on 10/24/24 10:07 Dose Route Admin Location Dispensed Lot Number Expiration Date [facility] Balancing Machine Set Up Worker 150 mg IM 1 mL [id number] 12/02/25 96789-358-97 MYLAN Assessment & Plan Assessment & Plan Orders: Orders AMB Medroxyprogesterone Injection Patient Supplied Today Z30.42 - Encounter for surveillance of injectable contraceptive Medications: New Depo-Provera (medroxyprogesterone) 150 mg IM ONCE 1 mL 0RF NS Z30.42 - Encounter for surveillance of injectable contraceptive Coding Level of Care Code Established Pt Est Pt Level 1 (47375) Patient Type Established History Problem Focused Exam Problem Focused Medical Decision Making Straight Forward Time Spent (min) 20
--- OUTSIDE RECORDS SUMMARY | 2024-10-24 11:11 | XMS_ITS | Clinical Summary ---
Author Organization [facility] Address [address] [place] [address] Care Team Providers Care Beam Sealer Name Role Phone No, Pcp Primary Care Provider Unavailabl e Allergies No known active allergies Medications cetirizine (ZyrTEC) 10 mg tablet TAKE 1 TABLET BY MOUTH EVERY DAY 2 Active citalopram (CeleXA) 10 mg tablet TAKE 1 TABLET BY MOUTH EVERY DAY IN THE MORNING 2 Active cyanocobalamin (VITAMIN B-12) 1,000 mcg/mL injection Inject 1,000 mcg into the shoulder, thigh, or buttocks 2 Active fluticasone propionate (FLONASE) 50 mcg/actuation nasal spray Administer 100 mcg into affected nostril(s) 2 Active ibuprofen (ADVIL) 800 mg tablet TAKE 1 TABLET BY MOUTH EVERY 8 HOURS NEEDED FOR PAIN 2 Active medroxyPROGESTE Greg (DEPO-PROVERA) 150 mg/mL syringe injection syringe Inject 150 mg into the shoulder, thigh, or buttocks Active omeprazole (PRILOSEC) 20 mg tablet,delayed release (DR/EC) 2 Active Active Problems Problem Noted Date Diagnosed Date History of COVID-19 01/26/2022 Overview (01/26/2022): 01/2022 Vitamin B12 deficiency 09/16/2020 Carpal tunnel syndrome, right 05/31/2020 Anxiety and depression 03/21/2018 Leukopenia 10/05/2017 Overview (01/26/2022): 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, 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 Chronic seasonal allergic rhinitis 08/29/2017 Immunizations Name Administration Dates Next Due COVID-19 Pfizer SARS-CoV2 mR NA PF 30mcg/0.3mL Vaccine (Purple) 06/22/2021 DTP 05/25/1995,03/25/1995,01/20/1995 DTaP 12/11/1999,07/26/1996 DTaP / HiB / IPV 11/16/1995, 5,03/25/1995,01/20 HPV, Quadrivalent 07/24/2008,03/23/2008,02/26/20 07 Hep A, 2 Dose 11/06/2015,09/03/2014 Hep B, Adolescent or Pediatric 11/16/1995,1994,1994 IPV 12/11/1999, 5,03/25/1995,01/20 Influenza, Quad, intranasal 09/12/2020 MMR 11/18/1998,11/16/1995 Meningococcal MCV4P 11/06/2015,02/25/2007 Td, 2 Lf, Preservative Free, adsorbed 02/21/2016 ,02/18/2006 Tdap 09/15/2017 Varicella 03/23/2008,02/12/1999 Family History Medical History Relation Comments Anemia Mother Relation Status Comments Father Mother Alive Social History Tobacco Use Types Packs/Day Years Used Date Smoking Tobacco: Never Smokeless Tobacco: Never Alcohol Use Standard Drinks/Week Comments Never 0 (1 standard drink = 0.6 oz pur e alcohol) PHQ-2 Answer Date Recorded Depression Risk (PHQ2) Score 0 Comments Unknown Sex and Gender Information Value Date Recorded Sex Assigned at Not on file Legal Sex Female 11:07 AM [facility] Gender Identity Not on file Sexual Orientation Not on file Last Filed Vital Signs Vital Sign Reading Time Taken Comments Blood Pressure 115/76 01/26/2022 8:09 AM EDT Pulse 84 01/26/2022 8:09 AM EDT Temperature 36.6 ??C (97.8 ??F) 01/26/2022 8:09 AM ED T Respiratory Rate - - Oxygen Saturation 95% 01/26/2022 8:09 AM EDT Inhaled Oxygen Concentration - - Weight 74 kg (163 lb 3.2 oz) 01/26/2022 8:09 AM EDT Height - - Body Mass Index - - Plan of Treatment Health Maintenance Due Date Last Done Comments Hepatitis C Screening 1994 PHQ-9 Depression Screen 2006 ANDRÉS-7 Anxiety Screen 2012 Cervical Cancer Screening (Pap/HPV) 11/15/2015 Annual Preventive Exam 09/24/2022 , 09/12/2020, 05/15/2020, Additional history exists COVID-19 Vaccine ( - 2023-2 5 season) 2024 06/22/2021 Influenza Vaccine (Season Ended) 2025 09/13/19 21 DTaP,Tdap,and Td Vaccines (7 - Td or Tdap) 09/16/2027 09/15/2017, 02/21/2016, 02/18/2006, Additional history exists RSV Vaccine (SCDM) (1 - 1-do se 75+ series) 2069 Insurance CIGNA CIGNA Care Teams Beam Sealer Relationship Specialty Start Date End Date No, Pcp PCP - General 01/26/22
--- OUTSIDE RECORDS SUMMARY | 2024-10-24 11:11 | XMS_ITS | Clinical Summary ---
Author Organization [facility] [address] [place] [address] Address [address] [place] [address] Phone Care Team Providers Care Coil Spring Assembler Name Role Phone Catie Baca MD Primary Care Prov ider Allergies Active Allergy Reactions Criticality Noted Date Comments Mold 08/27/2023 Other 08/27/2023 Pesticides and roaches Medications cyanocobalamin (VITAMIN B-12) 1,000 mcg/mL injection Inject 1 mL into the muscle every 30 days. 3 Active cetirizine (ZyrTEC) 10 mg tablet Take 1 tablet (10 mg total) by mouth 1 (one) time each day. 4 Active EPINEPHrine (EpiPen 2-Perry) 0.3 mg/0.3 mL injection Inject 1 Dose as directed Once. 4 Active fluticasone propionate (FLONASE) 50 mcg/actuation nasal spray 2 Sprays by Nasal route daily. Two sprays in each nostril daily for a week. 2 Active valACYclovir (VALTREX) 500 mg tablet PLEASE SEE ATTACHED FOR DETAILED DIRECTIONS 1 Active medroxyPROGEST ERone 150 mg/mL injection Inject 150 mg into the muscle Every 3 Months. Active citalopram (CeleXA) 20 mg tablet Take 1 tablet (20 mg total) by mouth 1 (one) time each day. 30 each 5 4 Active pantoprazole (PROTONIX) 20 mg EC tablet Take 1 tablet (20 mg total) by mouth 1 (one) time each day before breakfast. Do not crush, chew, or split. Active cholecalcifero l (VITAMIN D-3) 1,250 mcg (50,000 unit) capsule Take 1 Capsule by mouth once a week. 10/05/19 Discontinu ed(Therapy completed) mupirocin (BACTROBAN) 2 % ointment Apply topically 3 (three) times a day. 10/05/19 Discontinu ed(Therapy completed) Hospital, Clinic, or Other Facility Administered Medication Ordered Dose Route Frequency Start Date End Date Status cyanocobalamin (VITAMIN B-12) injection 1,000 mcgIndications:Vitamin B12 deficiency 1000 mcg IM Every 30 days 05/10/2024 Active Active Problems Problem Noted Date Diagnosed Date Chronic ear pain, bilateral 04/07/2024 Vitamin D deficiency 03/24/2023 Assessment & Plan (10/04/2024 9:07 AM EDT): Orders: Vitamin B12; Future Vitamin D 1,25 dihydroxy; Future Vitamin B12 deficiency 09/16/2020 Assessment & Plan (10/04/2024 9:07 AM EDT): Orders: Vitamin B12; Future Vitamin D 1,25 dihydroxy; Future Carpal tunnel syndrome, right 05/31/2020 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 Pending another six-month follow-up ultrasound and then yearly for the next 2 years. Encounters Date Type Department Care Team Description 10/11/2024 2:00 PM EDT Clinical Support [address] [phone] Vitamin B12 deficiency (Primary Dx) 10/04/2024 8:30 AM EDT Office Visit [address] [phone] Catie Amezquita MD Chronic seasonal allergic rhinitis (Primary Dx); Vitamin B12 deficiency; Vitamin D deficiency 09/13/2024 2:30 PM EDT Clinical Support [address] [phone] Vitamin B12 deficiency (Primary Dx) from Last 3 Months Immunizations Name Administration Dates Next Due DTP 05/25/1995,03/25/1995,01/20/1995 DTaP (Infanrix) 6wks to less than 7yo 12/11/1999 ,07/26/1996 [id number] (Pentacel) 2mo to less than 5yo 11/16/1995,05/25/1995,03/25/1995,01/20 [...] discomfort Esophageal reflux DX:Esophageal reflux Diarrhea DX:Diarrhea Paresthesia and pain of both upper extremities 09/12/2020 Cervical neck -ray normal 2020 Breast lump 07/12/2018 Benign-appearing solid mass noted on breast ultrasound, follow-up six-month ultrasound due in December 2018; six-month follow-up ultrasound showed stability. Pending another six-month follow-up ultrasound and then yearly for the next 2 years. Family History Medical History Relation Name Comments [...] What is your living situation? 1 07/11/2023 Comments No Sex and Gender Information Value Date Recorded Sex Assigned at Not on file Legal Sex Female 8:53 PM EST Gender Identity Not on file Sexual Orientation Not on file Obstetrics History Last Filed Vital Signs Vital Sign Reading Time Taken Comments Blood Pressure 126/88 10/04/2024 8:45 AM EDT Pulse 78 10/04/2024 8:45 AM EDT Temperature 36.2 ??C (97.2 ??F) 10/04/2024 8:45 AM ED T Respiratory Rate 14 10/04/2024 8:45 AM EDT Oxygen Saturation 99% 06/02/2024 8:28 AM EST Inhaled Oxygen Concentration - - Weight 71.7 kg (158 lb) 10/04/2024 8:45 AM EDT Height 157.5 cm (5' 2 ) 10/04/2024 8:45 AM EDT Body Mass Index 28.9 10/04/2024 8:45 AM EDT Plan of Treatment Upcoming Encounters Date Type Department Care Team (Late st Contact Info) Description 11/08/2024 2:00 PM EDT Clinical Support Adult Medicine [address] [phone] 03/07/2025 7:30 AM EDT Office Visit Adult Medicine [address] [phone] Catie Baca MD [address] [place] [phone] Health Maintenance Due Date Last Done Comments Hepatitis C Screening 06/13/2022 COVID-19 Vaccine ( season) 2024 06/22/2021, 05/30/2021 Cervical Cancer Screening: Pap Smear 09/16/2024 09/16/2021 Depression Screening 02/16/2025 02/17/2024 Influenza Vaccine (Season Ended) 2025 07/05/2022, 09/12/2020, 04/20/2018, Additional history exists Social Influencers of Health Screening 05/11/2025 05/11/2024 [...] complete this topic HIV Screening Completed 02/24/2022 Meningococcal B Vaccine Aged Out No l onger eligible based on patient's age to complete this topic Pneumococcal Vaccine: Pediatrics (0 to 5 Years) and At-Risk Patients (6 to 64 Years) Aged Out No longer eligible based on patient's age to complete this topic RSV Immunization Patients Under 20 months Aged Out No longer eligible based on patient's age to complete this topic Procedures Procedure Name Priority Date/Time Associated Diagnosis Comments VITAMIN B12 Routine 10/04/2024 9:21 AM EDT Chronic seasonal allergic rhinitis Vitamin B12 deficiency Vitamin D deficiency VITAMIN D 1,25 DIHYDROXY Routine 10/04/2024 9:21 AM EDT Chronic seasonal allergic rhinitis Vitamin B12 deficiency Vitamin D deficiency HM DEPRESSION SCREENING Routine 02/17/2024 LIPID PANEL Routine 12/29/2023 HM HIV SCREENING Routine 02/24/2022 HM PAP SMEAR Routine 09/16/2021 from Last 3 Months or Most Recently Relevant to Health Maintenance Results * Vitamin D 1,25 dihydroxy (10/04/2024 9:21 AM EDT) Vitamin D, 1, 25-Dihydroxy 36 20 - 79 pg/mL 10/09/2024 8:37 PM EDT [facility] Comment: Vitamin D 1, 25 dihydroxy levels should be primarily used to assess Vitamin D status in patients with renal disease and hypercalcemia. Vitamin D 1,25-dihydroxy levels are generally less than 5 pg/mL in end stage renal disease patients. The preferred initial test for assessing Vitamin D status in the general population is Vitamin D 25-hydroxy (VITD). Test performed at [facility], [address] , [place], [place] ??[address] ? [phone] Desirae Rae MD, PhD - Regulatory Analyst Blood Venous blood specimen / Unknown Venipuncture / Unknown 10/04/2024 9:21 AM EDT 10/04/2024 9:21 AM EDT Catie Baca MD LAB BLOOD ORDERABL ES Final Result [facility] [address] [place] [address] * Vitamin B12 (10/04/2024 9:21 AM EDT) [facility] Vitamin B-12 380 250 - 900 pcg/mL LAB CHEMISTRY METHOD 10/04/2024 7:52 PM EDT [facility] Blood Venous blood specimen / Unknown Venipuncture / Unknown 10/04/2024 9:21 AM EDT 10/04/2024 9:21 AM EDT Catie Baca MD LAB BLOOD ORDERABL ES Final Result [facility] [address] [place] [address], [place] [phone] * Depression Screening (02/17/2024) [facility] Depression Screening ABSTRACTED Ronel Zelaya MD HEALTH MAINTENANCE Final Result * Lipid panel (12/29/2023) [facility] LDL/HDL Ratio 3 0 - 4 Triglycerides 35 0 - 150 mg/dL Cholesterol 160 0 - 200 mg/dL HDL 59 >=40 mg/dL LDL Cholesterol 94 0 - 100 mg/dL Blood Venous blood specimen / Unknown Historical Provider LAB BLOOD ORDERABLES Linette l Result * HIV Screening (02/24/2022) HIV Screening ABSTRACTED Historical Provider HEALTH MAINTENANCE Final Result * Pap Smear (09/16/2021) Pap smear no interpretation , abstracted Historical Provider HEALTH MAINTENANCE Final Result from Last 3 Months or Most Recently Relevant to Health Maintenance Insurance [facility] PLAN Care Teams Coil Spring Assembler Relationship Specialty Start Date End Date Catie Baca MD [address] [place] [address] [phone] PCP - General Internal Medicine 02/03/22
== END 2024-10-24 10:07 | disposition home or self-care (01) ==
LOC: HO.HWS 09:56
PROVIDERS: Visit Provider Advanced Practice Midwife
DX: Z30.42 Encounter for surveillance of injectable contraceptive (principal)

== ENCOUNTER → 2024-10-24 09:56 | Outpatient (BNVA) | payer OTHER, SELFPAY | PROVIDERS: Visit Provider Advanced Practice Midwife | DX: Z30.42 Encounter for surveillance of injectable contraceptive (principal) | CPT/HCPCS: 96372; 99211; J1050 ==

== ENCOUNTER 2024-12-12 14:39 | Outpatient (AMB) | payer OTHER, SELFPAY ==
--- NOTE | 2024-12-12 14:45 | A.OFFVIS_ITS ---
Vital Signs 12/12/24 14:47 Height 5 ft 2 in Weight 157 lb 4 oz BMI 28.8 BP 102/60 Blood Pressure Location Lt brachial Position Sitting Intake Visit Reasons: UTI/STI testing Video Specialist Required: No Clinical Training Coordinator: Clinical Training Coordinator Present Allergies mold Allergy (Verified 12/12/24 14:54) Unknown roaches Allergy (Intermediate, Uncoded 12/12/24 14:54) Hives Medication List - Last Reconciled 12/12/24 by Nelly Hunter LPN citalopram 10 mg PO QAM mecobalamin (vitamin B12) mcg IM medroxyprogesterone (Depo-Provera) 150 mg IM [id number] 90 days valacyclovir (Valtrex) 1,000 mg (2 x 500 mg) PO DAILY Is last menstrual period known: No Post menopausal: No Patient : No Do you need a note to return to daycare/school/sports/work: No HPI Comments Details: Patient is here today concerns of pelvic pressure, cramping and frequency since the weekend, has a new intimate partner and request STD screening. Started Azo Wednesday which have helped her symptoms, she admits to hydrating well and is taking cranberry juice. She denies any fever, back pain or flu like symptoms, no discharge or odors. Current Depo user. [facility] Medical History Cobalamin deficiency Migraines Acid reflux H. 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 Sexual orientation: Straight/Heterosexual Gender identity: Female Female Reproductive History Menstrual Age of Menarche: 12 control method: progesterone injection Total pregnancies: 1 Number of Living Children: 1 Review of Systems Const All systems reviewed & are unremarkable except as noted in HPI and below Physical Exam Vital Signs: Last Vital Signs BP 102/60 12/12/24 14:47 BMI result Body Mass Index 28.8 Const General: cooperative, healthy appearing and no acute distress Orientation/consciousness: patient oriented x3 GI Inspection: Yes normal to inspection Palpation (GI): Soft to palpation and Other GI palpation findings present (Nontender) Rectal Exam - Female: visual inspection normal General: Yes bladder normal to palpation External Female Exam: normal appearance of the urethra Speculum Exam - Vagina: normal appearance of the vagina, normal palpation and abnormal vaginal discharge frothy Speculum Exam - Cervix: normal appearance of the cervix and normal palpation Bimanual exam- vagina & uterus: normal bimanual exam, normal palpation, uterine size normal, bladder normal to palpation, normal palpation, uterine shape normal and non-tender Bimanual Exam- Adnexa, other: normal adnexae Neuro General: patient oriented x3 Results AMB Test Urine AMB Test Urine Negative Last Edit by Nelly Hunter LPN on 12/12/24 15:23 Results Reviewed Results Reviewed: Laboratory Last Values Tst Clinic Negative 12/12/24 15:23 Assessment & Plan Assessment & Plan (1) Dysuria: Code(s): R30.0 - Dysuria Category: Medical Plan GC chlamydia and BV panel obtained. Urine culture sent. UPT is negative. Await results for final plan of care. Continue to hydrate well. Rx sent in. Take as directed and complete any medications that may be ordered. Report to the ED immediately if any fever >100.4, flu like symptoms, lightheadedness, dizziness, significant flank pain. Orders: Orders Urine Culture Today R30.0 - Dysuria CT NG by PCR Today Z11.3 - Encounter for screening for infections with a predominantly sexual mode of transmission Bacterial Vaginosis Panel Today Z11.3 - Encounter for screening for infections with a predominantly sexual mode of transmission Hepatitis C Antibody Reflex Today Z20.2 - Contact with and (suspected) exposure to infections with a predominantly sexual mode of transmission Medications: New nitrofurantoin monohyd/m-cryst 100 mg (Macrobid) must administer with a meal/food 100 mg PO BID 6 caps 0RF 3 days Coding Level of Care Code Est Pt Level 3 (12805) Diagnoses Dysuria R30.0
[2024-12-12 14:47] VITALS: BP 102/60; BMI 28.8
--- OUTSIDE RECORDS SUMMARY | 2024-12-12 17:37 | XMS_ITS | Clinical Summary ---
Author Organization [facility] [address] [place] [address] Address [address] [place] [address] Phone Care Team Providers Care Sink Cutter Name Role Phone Catie Baca MD Primary [...] SEE ATTACHED FOR DETAILED DIRECTIONS 1 Active medroxyPROGESTE Greg 150 mg/mL injection Inject 150 mg into [...] Encounters Date Type Department Care Team Description 12/06/2024 1:30 PM EDT Clinical Support [address] [phone] Vitamin B12 deficiency (Primary Dx) 11/08/2024 2:00 PM EDT Clinical Support [address] [phone] Vitamin B12 deficiency (Primary Dx) 10/11/2024 2:00 PM EDT Clinical Support [address] [phone] Vitamin B12 deficiency (Primary Dx) 10/04/2024 8:30 AM EDT Office Visit [address] [phone] Catie Amezquita MD Chronic seasonal allergic rhinitis (Primary Dx); Vitamin B12 deficiency; Vitamin D deficiency 09/13/2024 2:30 PM EDT Clinical Support [address] [phone] Vitamin B12 deficiency (Primary Dx) from Last 3 Months Immunizations Name Administration Dates Next Due DTP 05/25/1995,03/25/1995,01/20/1995 DTaP (Infanrix) 6wks to less than 7yo 12/11/1999 ,07/26/1996 [id number] (Pentacel) 2mo to less than 5yo 11/16/1995,05/25/1995,03/25/1995,01/20 [...] Care Team (Late st Contact Info) Description 01/03/2025 3:45 PM EDT Clinical Support Adult [address] [phone] 03/07/2025 7:30 AM EDT Office Visit Adult [address] [phone] Catie Baca MD [address] [place] [phone] Health Maintenance Due Date Last Done Comments [...] rhinitis Vitamin B12 deficiency Vitamin D deficiency DEPRESSION SCREENING Routine 02/17/2024 LIPID PANEL Routine [...] Vitamin D 25-hydroxy (VITD). Test performed at [facility], [address] , [place], [place] ??[address] ? [phone] Desirae Rae MD, PhD - Casing Grader Blood Venous blood specimen / Unknown Venipuncture / Unknown 10/04/2024 9:21 AM EDT 10/04/2024 9:21 AM EDT Catie Baca MD LAB BLOOD ORDERABL ES Final Result Performing Organization Address City/[facility]/ZIP Co de Phone Number [facility] [address] [place] [address] * Vitamin B12 (10/04/2024 9:21 AM EDT) [facility] Vitamin B-12 380 250 - 900 pcg/mL LAB CHEMISTRY METHOD 10/04/2024 7:52 PM EDT [facility] Blood Venous blood specimen / Unknown Venipuncture / Unknown 10/04/2024 9:21 AM EDT 10/04/2024 9:21 AM EDT Catie Baca MD LAB BLOOD ORDERABL ES Final Result [facility] [address] [place] [address], [place] [phone] * Depression Screening (02/17/2024) [facility] Depression Screening ABSTRACTED Historical Garcia [facility] HEALTH MAINTENANCE Final Result * Lipid panel (12/29/2023) [facility] LDL/HDL Ratio 3 0 - 4 Triglycerides 35 0 - 150 mg/dL Cholesterol 160 0 - 200 mg/dL HDL 59 >=40 mg/dL LDL Cholesterol 94 0 - 100 mg/dL Blood Venous blood specimen / Unknown Historical Provider LAB BLOOD ORDERABLES Linette l Result * HIV Screening (02/24/2022) HIV Screening ABSTRACTED Historical Provider HEALTH MAINTENANCE Final Result * Pap Smear (09/16/2021) HM Pap smear no interpretation , abstracted Historical Provider HEALTH MAINTENANCE Final Result from Last 3 Months or Most Recently Relevant to Health Maintenance Insurance [facility] [place] [address] Care Teams Sink Cutter Relationship Specialty Start Date End Date Catie Baca MD [address] [place] [phone] PCP - General Internal Medicine 02/03/22
== END 2024-12-12 16:13 | disposition home or self-care (01) ==
LOC: HO.HWS 14:39
PROVIDERS: Visit Provider Advanced Practice Midwife
DX: R30.0 Dysuria (principal)
CPT/HCPCS: 99213

== ENCOUNTER 2024-12-12 14:39 | Outpatient (REF) | payer OTHER, SELFPAY ==
[2024-12-13 03:58] LABS: CT PCR NOT DETECTED (Not Detect.); NG PCR DETECTED (Not Detect.)
[2024-12-13 11:02] LABS: Bacterial Vaginosis PCR POSITIVE (Negative); Candida Group PCR NOT DETECTED (Not Detect); Candida glab krusei PCR NOT DETECTED (Not Detect); Trichomonas vaginalis PCR NOT DETECTED (Not Detect)
== END 2024-12-12 14:40 | disposition home or self-care (01) ==
LOC: HO.LNP 14:39
PROVIDERS: Visit Provider Advanced Practice Midwife
DX: R30.0 Dysuria (principal); Z11.3 Encounter for screening for infections with a predominantly sexual mode of transmission
CPT/HCPCS: 81515; 87086; 87491; 87591; 99212

== ENCOUNTER 2024-12-13 10:54 | Outpatient (AMB) | payer OTHER, SELFPAY ==
--- NOTE | 2024-12-13 11:28 | AM.OFFVISNUR ---
Intake Visit Reasons: Ceftriaxone Injection Allergies mold Allergy (Verified 12/12/24 14:54) Unknown roaches Allergy (Intermediate, Uncoded 12/12/24 14:54) Hives Nursing Note Pt was here today for a Ceftriaxone inj for positive GC. Inj given pt advised to wait 15 minutes after inj in WR. . Pt was also informed to continue with her antibiotic until her urine culture results are final. Pt verbs understanding. Office Meds ceftriaxone 500 mg solution for injection Performing Provider: Nahomi Hopper CNM Performing Location: [facility] Administered by: Nelly Hunter LPN on 12/13/24 11:42 Dose Route Admin Location Dispensed Lot Number Expiration Date [facility] Roll Over Loader 500 mg IM lgm 500 mg [id number] 09/01/26 4748-1281-76 HOSPIRA/PFIZER Assessment & Plan Assessment & Plan Orders: Orders AMB Ceftriaxone Injection Today Z20.2 - Contact with and (suspected) exposure to infections with a predominantly sexual mode of transmission Coding Level of Care Code Established Pt Est Pt Level 1 (42060) Patient Type Established History Problem Focused Exam Problem Focused Medical Decision Making Low Complexity Time Spent (min) 30
--- OUTSIDE RECORDS SUMMARY | 2024-12-13 12:23 | XMS_ITS | Clinical Summary ---
Author Organization [facility] [address] [place] [address] Address [address] [place] [address] Phone Care Team Providers Care Photographer Motion Picture Name Role Phone Catie Baca MD Primary [...] Description 12/06/2024 1:30 PM EDT Clinical Support [address] [phone] Vitamin B12 deficiency (Primary Dx) 11/08/2024 2:00 PM EDT Clinical Support [address] [phone] Vitamin B12 deficiency (Primary Dx) 10/11/2024 2:00 PM EDT Clinical Support [address] [phone] Vitamin B12 deficiency (Primary Dx) 10/04/2024 8:30 AM EDT Office Visit [address] [phone] Catie Amezquita MD Chronic seasonal allergic rhinitis (Primary Dx); Vitamin B12 deficiency; Vitamin D deficiency 09/13/2024 2:30 PM EDT Clinical Support [address] [phone] Vitamin B12 deficiency (Primary Dx) from Last 3 Months Immunizations Name Administration Dates Next Due DTP 05/25/1995,03/25/1995,01/20/1995 DTaP (Infanrix) 6wks to less than 7yo 12/11/1999 ,07/26/1996 [id number] (Pentacel) 2mo to less than 5yo 11/16/1995,05/25/1995,03/25/1995,01/20 [...] 01/03/2025 3:45 PM EDT Clinical Support Adult [address] [phone] 03/07/2025 7:30 AM EDT Office Visit Adult [address] [phone] Catie Baca MD [address] [place] [phone] Health Maintenance Due Date Last Done Comments [...] Vitamin D 25-hydroxy (VITD). Test performed at [facility], [address] , [place], [place] [address] ? [phone] Desirae Rae MD, PhD - Damper Worker Blood Venous blood specimen / Unknown Venipuncture / Unknown 10/04/2024 9:21 AM EDT 10/04/2024 9:21 AM EDT Catie Baca MD LAB BLOOD ORDERABL ES Final Result Performing Organization Address City/[facility]/ZIP Co de Phone Number [facility] [address] [place] [address] * Vitamin B12 (10/04/2024 9:21 AM EDT) [facility] Vitamin B-12 380 250 - 900 pcg/mL LAB CHEMISTRY METHOD 10/04/2024 7:[address] [facility] Blood Venous blood specimen / Unknown Venipuncture / Unknown 10/04/2024 9:21 AM EDT 10/04/2024 9:21 AM EDT Catie Baca MD LAB BLOOD ORDERABL ES Final Result [facility] [address] [place] [address], [place] [phone] * Depression Screening (02/17/2024) [facility] Depression Screening ABSTRACTED Historical [facility] MAINTENANCE Final Result * Lipid panel (12/29/2023) [facility] LDL/HDL Ratio 3 0 - 4 Triglycerides [...] Most Recently Relevant to Health Maintenance Insurance [facility] Care Teams Photographer Motion Picture Relationship Specialty Start Date End Date Catie Baca MD [address] [place] [id number] PCP - General Internal Medicine 02/03/22
== END 2024-12-13 11:30 | disposition home or self-care (01) ==
LOC: HO.HWS 10:54
DX: Z20.2 Contact with and (suspected) exposure to infections with a predominantly sexual mode of transmission (principal)

== ENCOUNTER → 2024-12-13 10:54 | Outpatient (BNVA) | payer OTHER, SELFPAY | DX: Z20.2 Contact with and (suspected) exposure to infections with a predominantly sexual mode of transmission (principal) | CPT/HCPCS: 96372; 99211; J0696 ==

== ENCOUNTER 2025-01-09 15:12 | Outpatient (AMB) | payer OTHER, SELFPAY ==
[2025-01-09 15:25] VITALS: BMI 28.9
--- NOTE | 2025-01-09 15:25 | AM.OFFVISNUR ---
Vital Signs 01/09/25 15:25 Height 5 ft 2 in Weight 158 lb BMI 28.9 Intake Visit Reasons: depo Allergies mold Allergy (Verified 12/12/24 14:54) Unknown roaches Allergy (Intermediate, Uncoded 12/12/24 14:54) Hives Nursing Note Patient here today at scheduled appointment. Depo provera 150 mg/ml to right deltoid with out complaint. lot # [id number] exp- 12/02/2025. [facility]#[id number] by Erick. Patient to schedule next depo in 12 weeks Office Procedures Depo Questionnaire If YES to any of the following questions, please consult a provider. Date of last injection: 10/24/24 Date of last gynecology exam: 10/06/23 Menstrual pattern since last injection has been: Not Applicable Irregular bleeding?: Not Applicable Breast lumps or other breast changes?: Not Applicable Changes in weight or appetite?: Not Applicable Depression or changes in mood?: Not Applicable Abnormal hair growth or loss?: Not Applicable Skin problems (rash, acne, discoloration)?: Not Applicable Pain at the injection site?: Not Applicable Headaches?: Not Applicable Nervousness?: Not Applicable Abdominal pain or cramping?: Not Applicable Dizziness or nausea?: Not Applicable Fatigue or weakness?: Not Applicable Decrease in sexual drive?: Not Applicable Chest pain or shortness of breath?: Not Applicable Swelling in arms or legs?: Not Applicable Any other problems or concerns?: none Form completed by?: Nila Gallardo LPN Office Meds Depo-Provera 150 mg/mL intramuscular syringe Performing Provider: Taran Bernal MD Performing Location: [facility] Documented (not given) by: Nila Gallardo LPN on 01/09/25 15:39 Dose Route Admin Location Dispensed Lot Number Expiration Date [facility] Burial Vault Maker 150 mg IM mL Total Dispensed Waste n/a n/a Assessment & Plan Assessment & Plan Orders: Orders AMB Medroxyprogesterone Injection Patient Supplied Today Z30.42 - Encounter for surveillance of injectable contraceptive Medications: New Depo-Provera (medroxyprogesterone) 150 mg IM ONCE 1 mL 0RF NS Z30.42 - Encounter for surveillance of injectable contraceptive Refilled medroxyprogesterone (Depo-Provera) 150 mg IM [id number] 1 mL 0RF 90 days Coding Level of Care Code Established Pt Est Pt Level 1 (66422) Patient Type Established History Problem Focused Exam Problem Focused Medical Decision Making Straight Forward Time Spent (min) 20
--- OUTSIDE RECORDS SUMMARY | 2025-01-09 15:49 | XMS_ITS | Clinical Summary ---
Author Organization [facility] Address [address] [place] [address] Care Team Providers Care Engineering Group Leader Name Role Phone No, Pcp Primary Care [...] intervention Chronic seasonal allergic rhinitis 08/29/2017 Immunizations Immunization Administration Dates Next Due COVID-19 Pfizer SARS-CoV2 [...] on file Legal Sex Female 11:07 AM [facility] Gender Identity Not on file Sexual Orientation Not on file Last Filed Vital Signs Vital Sign Reading Time Taken Comments Blood Pressure 115/76 01/26/2022 8:09 AM EDT Pulse 84 01/26/2022 8:09 AM EDT Temperature 36.6 C (97.8 F) 01/26/2022 8:09 AM EDT Respiratory Rate - - Oxygen Saturation 95% [...] 09/12/2020, 05/15/2020, Additional history exists COVID-19 Vaccine (2 - 2023-2 5 season) 2024 06/22/2021 Influenza Vaccine (#1) 2025 09/12/2020 DTaP,Tdap,and Td Vaccines (7 - Td or Tdap) 09/16/2027 09/15/2017, 02/21/2016, 02/18/2006, Additional history exists RSV Vaccine (SCDM) (1 - 1-do se 75+ series) 2069 Insurance [employer] C[employer] Care Teams Engineering Group Leader Relationship Specialty Start Date End Date No, Pcp PCP - General 01/26/22
--- OUTSIDE RECORDS SUMMARY | 2025-01-09 15:49 | XMS_ITS | Clinical Summary ---
Author Organization [facility] [address] [place] [address] Address [address] [place] [address] Phone Care Team Providers Care Microfiche Duplicator Name Role Phone Catie Baca MD Primary [...] Encounters Date Type Department Care Team Description 01/03/2025 3:45 PM EDT Clinical Support [address] [phone] Vitamin B12 deficiency (Primary Dx) 12/06/2024 1:30 PM EDT Clinical Support Adult [address] [phone] Vitamin B12 deficiency (Primary Dx) 11/08/2024 2:00 PM EDT Clinical Support [address] [phone] Vitamin B12 deficiency (Primary Dx) 10/11/2024 2:00 PM EDT Clinical Support [address] [phone] Vitamin B12 deficiency (Primary Dx) from Last 3 Months Immunizations Name Administration Dates Next Due DTP 05/25/1995,03/25/1995,01/20/1995 DTaP (Infanrix) 6wks to less than 7yo 12/11/1999 ,07/26/1996 [id number] (Pentacel) 2mo to less than 5yo 11/16/1995,05/25/1995,03/25/1995,01/20 [...] 78 10/04/2024 8:45 AM EDT Temperature 36.2 C (97.2 F) 10/04/2024 8:45 AM EDT Respiratory Rate 14 10/04/2024 8:45 AM EDT Oxygen Saturation 99% 06/02/2024 8:28 AM EST Inhaled Oxygen Concentration - - Weight 71.7 kg (158 lb) 10/04/2024 8:45 AM EDT Height 157.5 cm (5' 2 ) 10/04/2024 8:45 AM EDT Body Mass Index 28.9 10/04/2024 8:45 AM EDT Plan of Treatment Upcoming Encounters Date Type Department Care Team (Late st Contact Info) Description 03/07/2025 7:30 AM EDT Office Visit Adult Medicine [facility] [address] [place] [phone] Catie Baca MD [address] [place] [address] Health Maintenance Due Date Last Done Comments Hepatitis C Screening 06/13/2022 COVID-19 Vaccine ( season) 2024 06/22/2021, 05/30/2021 Cervical Cancer Screening: Pap Smear 09/16/2024 09/16/2021 Depression Screening 02/16/2025 02/17/2024 Influenza Vaccine (#1) 2025 , 09/12/2020, 04/20/2018, Additional history exists Social Influencers [...] 5 Years) and At-Risk Patients (6 to 49 Years) Aged Out No longer eligible based [...] Health Maintenance Results * Depression Screening (02/17/2024) Pathologist [facility] Depression Screening ABSTRACTED [facility] Provider HEALTH MAINTENANCE Final Result * Lipid panel (12/29/2023) [facility] LDL/HDL Ratio 3 0 - 4 Triglycerides 35 0 - 150 mg/dL Cholesterol 160 0 - 200 mg/dL HDL 59 >=40 mg/dL LDL Cholesterol 94 0 - 100 mg/dL Blood Venous blood specimen / Unknown [facility] Provider LAB BLOOD ORDERABLES Linette l Result * HIV Screening (02/24/2022) Pathologist [facility] HIV Screening ABSTRACTED [facility] Provider HEALTH MAINTENANCE Final Result * Pap Smear (09/16/2021) Pathologist [facility] Pap smear no interpretation , abstracted [facility] Provider HEALTH MAINTENANCE Final Result from Last 3 Months or Most Recently Relevant to Health Maintenance Insurance [facility] Care Teams Microfiche Duplicator Relationship Specialty Start Date End Date Catie Baca MD [address] [place] [id number] PCP - General Internal Medicine 02/03/22
== END 2025-01-09 15:25 | disposition home or self-care (01) ==
LOC: HO.HWS 15:12
PROVIDERS: Visit Provider Advanced Practice Midwife
DX: Z30.42 Encounter for surveillance of injectable contraceptive (principal)

== ENCOUNTER → 2025-01-09 15:12 | Outpatient (BNVA) | payer OTHER, SELFPAY | PROVIDERS: Visit Provider Advanced Practice Midwife | DX: Z30.42 Encounter for surveillance of injectable contraceptive (principal) | CPT/HCPCS: 96372; 99211 ==

== ENCOUNTER 2025-01-18 09:52 | Outpatient (REF) | payer OTHER, SELFPAY | END 2025-01-18 09:53 | disposition home or self-care (01) | LOC: HO.LNP 09:52 | PROVIDERS: Visit Provider Advanced Practice Midwife | DX: Z00.00 Encounter for general adult medical examination without abnormal findings (principal); Z11.3 Encounter for screening for infections with a predominantly sexual mode of transmission; Z79.899 Other long term (current) drug therapy | CPT/HCPCS: 87626; 88175; 99395 ==

== ENCOUNTER 2025-01-18 09:52 | Outpatient (AMB) | payer OTHER, SELFPAY ==
--- OUTSIDE RECORDS SUMMARY | 2025-01-18 10:16 | XMS_ITS | Clinical Summary ---
Author Organization [facility] [address] [place] [address] Address [address] [place] [address] Phone Care Team Providers Care General Office Clerk Name Role Phone Catie Baca MD Primary [...] Description 01/03/2025 3:45 PM EDT Clinical Support [address] [phone] Vitamin B12 deficiency (Primary Dx) 12/06/2024 1:30 PM EDT Clinical Support Adult Medicine [address] [phone] Vitamin B12 deficiency (Primary Dx) 11/08/2024 2:00 PM EDT Clinical Support Adult Medicine [address] [phone] Vitamin B12 deficiency (Primary Dx) from Last 3 Months Immunizations Name Administration Dates Next Due DTP 05/25/1995,03/25/1995,01/20/1995 DTaP (Infanrix) 6wks to less than 7yo 12/11/1999 ,07/26/1996 [id number] (Pentacel) 2mo to less than 5yo 11/16/1995,05/25/1995,03/25/1995,01/20 [...] 7:30 AM EDT Office Visit Adult Medicine [facility] [address] [place] [phone] Catie Baca MD [address] [place] [address] Health Maintenance Due Date Last Done Comments [...] Maintenance Results * Depression Screening (02/17/2024) Pathologist [facility] Depression Screening ABSTRACTED [facility] Provider HEALTH MAINTENANCE Final Result * Lipid panel (12/29/2023) Pathologist [facility] LDL/HDL Ratio 3 0 - 4 Triglycerides 35 0 - 150 mg/dL Cholesterol 160 0 - 200 mg/dL HDL 59 >=40 mg/dL LDL Cholesterol 94 0 - 100 mg/dL Blood Venous blood specimen / Unknown [facility] Provider LAB BLOOD ORDERABLES Linette l Result * HIV Screening (02/24/2022) Pathologist [facility] HIV Screening ABSTRACTED [facility] Provider HEALTH MAINTENANCE Final Result * Pap Smear (09/16/2021) Pathologist [facility] Pap smear no interpretation , abstracted [facility] Provider HEALTH MAINTENANCE Final Result from Last 3 Months or Most Recently Relevant to Health Maintenance Insurance [employer] Care Teams General Office Clerk Relationship Specialty Start Date End Date Catie Baca MD [address] [place] [phone] PCP - General Internal Medicine 02/03/22
--- OUTSIDE RECORDS SUMMARY | 2025-01-18 10:16 | XMS_ITS | Clinical Summary ---
Author Organization [facility] Address [address] [place] [address] Care Team Providers Care Manager Behavior Name Role Phone No, Pcp Primary Care [...] on file Legal Sex Female 11:07 AM [facility] Gender Identity Not on file Sexual Orientation [...] series) 2069 Insurance CIG[employer] CIGNA Care Teams Manager Behavior Relationship Specialty Start Date End Date No, Pcp PCP - General 01/26/22
--- NOTE | 2025-01-18 10:26 | A.OFFVIS_ITS ---
Vital Signs 01/18/25 10:40 Height 5 ft 3 in Weight 155 lb BMI 27.5 BP 118/74 Blood Pressure Location Rt brachial Position Sitting Intake Visit Reasons: Annual/ follow up Intake Note: Would like an order for valtrex for frequent break outs. Wants a std testing for jay for gonnorhea. Tool Repairer Bench Required: No Information Interpreted: clinical only Accompanied by: Self / Same As Patient Allergies mold Allergy (Verified 01/18/25 10:32) Unknown roaches Allergy (Intermediate, Uncoded 01/18/25 10:32) Hives Medication List - Last Reconciled 01/18/25 by Nila Gallardo LPN citalopram 10 mg PO QAM mecobalamin (vitamin B12) mcg IM medroxyprogesterone (Depo-Provera) 150 mg IM [id number] 90 days valacyclovir (Valtrex) 500 mg PO BID 3 days Is last menstrual period known: Yes (no period on depo provera for 10 years) Post menopausal: No Patient : No Followed by:: Nila Gallardo LPN Do you need a note to return to daycare/school/sports/work: No HPI Comments Details: Patient is a premenopausal woman presenting for annual examination. 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 Current Depo-Provera user, desires to continue use. Requests refill for valacyclovir history of HSV outbreaks approximately 6/year. She denies any contraindications to control such as: migraines with aura, history of DVT or pulmonary emboli, high blood pressure, liver disease, thrombolic disorders, Lupus, +JOS, breast cancer, or smoking. Currently is sexually active. She denies vaginal itching or irritation. STI screening offered; she accepts. She tries to eat healthy and stays active with exercise. Denies family history of breast, ovarian or colon cancer. Last pap smear 2021, negative. [facility] Medical History Gonorrhea contact Cobalamin deficiency Migraines Acid reflux H. 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 Sexual orientation: Straight/Heterosexual Gender identity: Female Female Reproductive History Menstrual Age of Menarche: 12 control method: progesterone injection Total pregnancies: 1 Full term: 1 Number of Living Children: 1 Date of last pap smear: 09/16/21 Review of Systems Const All systems reviewed & are unremarkable except as noted in HPI and below Reports as per HPI Eyes Reports no additional complaints ENT Reports no additional complaints Card Reports no additional complaints Resp Reports no additional complaints GI Reports as per HPI and Reports no additional complaints Reports as per HPI Musc Reports no additional complaints Skin/Breast Reports as per HPI Neuro Reports no additional complaints Psych Reports no additional complaints Endo Reports no additional complaints Lukasz/Lymph Reports no additional complaints Aller/Immun Reports no additional complaints Physical Exam Vital Signs: Last Vital Signs BP 118/74 01/18/25 10:40 BMI result Body Mass Index 27.5 Const General: cooperative, healthy appearing, no acute distress, well developed and alert Orientation/consciousness: patient oriented x3 HEENT Head: Yes normal to inspection Eyes General: appearance normal, both eyes and all related structures Neck Neck: Yes normal visual inspection Thyroid: Thyroid normal Chest Chest palpation & inspection: normal inspection of the chest and other (no puckering, dimpling, peau de orange, retraction, discharge, masses) Breast/axilla inspection: normal inspection of the breasts Breast/axilla palpation: normal palpation of the breasts Resp Effort & Inspection: normal respiratory effort GI Inspection: Yes normal to inspection Palpation (GI): Soft to palpation Rectal Exam - Female: deferred General: Yes bladder normal to palpation External Female Exam: normal external appearance and normal appearance of the urethra Speculum Exam - Vagina: normal appearance of the vagina, normal palpation and normal vaginal discharge Speculum Exam - Cervix: normal appearance of the cervix and normal palpation Bimanual exam- vagina & uterus: normal bimanual exam, normal palpation, uterine size normal, bladder normal to palpation, normal palpation and non-tender Bimanual Exam- Adnexa, other: no masses Skin General skin exam: no rashes or lesions noted Rashes: no rashes Neuro General: patient oriented x3 Cognition (Neuro): normal cognition Extrem General: Yes normal to inspection Psych Attitude: cooperative Thought process: Normal thought process present Assessment & Plan Assessment & Plan (1) Well female exam without gynecological exam: Code(s): Z00.00 - Encounter for general adult medical examination without abnormal findings Category: Medical Plan Discussed: Current recommendations for pap smears per ASCCP guidelines. Pap obtained. GC chlamydia and BV panel obtained. Rx sent in for Valacyclovir. Continue with Depo-Provera q.3 months. control hormone use warnings: go to ER if and loss of vision, blindness, severe headache, chest pain or difficulty breathing, severe abdominal pain, or any pain or swelling in an extremity. Discuss bone density loss prevention. Breast awareness and periodic breast exams. Maintain a healthy lifestyle including a well balanced diet and routine exercise. Use condoms for STI and prevention. Patient verbalizes understanding and agrees to the plan of care. She was given opportunity to ask questions and all questions were answered to the best of my ability. RTO in one year for annual leaflet or newspaper deliverer examination. This note is constructed using voice recognition software. While every effort has been made to ensure accuracy, oil refiner errors may have been included. Orders: Orders HPV High risk Today Z00.00 - Encounter for general adult medical examination without abnormal findings Bacterial Vaginosis Panel Today Z11.3 - Encounter for screening for infections with a predominantly sexual mode of transmission CT NG by PCR Vag/Cerv Today Z11.3 - Encounter for screening for infections with a predominantly sexual mode of transmission Pap Smear Today Z00.00 - Encounter for general adult medical examination without abnormal findings Medications: Refilled valacyclovir (Valtrex) 500 mg PO BID 90 tabs 1RF 3 days medroxyprogesterone (Depo-Provera) 150 mg IM [id number] 1 mL 4RF 90 days Coding Level of Care Code Est Pt Prev Care 18-39y(91909) Diagnoses Well female exam without gynecological exam Z00.00
[2025-01-18 10:40] VITALS: BP 118/74; BMI 27.5
== END 2025-01-18 12:06 | disposition home or self-care (01) ==
LOC: HO.HWS 09:53
PROVIDERS: Visit Provider Advanced Practice Midwife
DX: Z01.419 Encounter for gynecological examination (general) (routine) without abnormal findings (principal)
CPT/HCPCS: 99395; 99459

== ENCOUNTER 2025-01-18 11:07 | Outpatient (REF) | payer OTHER, SELFPAY ==
[2025-01-18 15:25] LABS: Bacterial Vaginosis PCR POSITIVE (Negative); Candida Group PCR NOT DETECTED (Not Detect); Candida glab krusei PCR NOT DETECTED (Not Detect); Trichomonas vaginalis PCR NOT DETECTED (Not Detect)
[2025-01-18 15:57] LABS: CT PCR NOT DETECTED (Not Detect.); NG PCR NOT DETECTED (Not Detect.)
== END 2025-01-18 11:08 | disposition home or self-care (01) ==
LOC: HO.LAB 11:07
PROVIDERS: Visit Provider Advanced Practice Midwife
DX: Z00.00 Encounter for general adult medical examination without abnormal findings (principal); Z11.3 Encounter for screening for infections with a predominantly sexual mode of transmission
CPT/HCPCS: 81515; 87491; 87591

== ENCOUNTER 2025-02-08 10:04 | Outpatient (REF) | payer OTHER, SELFPAY | END 2025-02-08 10:05 | disposition home or self-care (01) | LOC: HO.LNP 10:04 | PROVIDERS: Visit Provider Obstetrics & Gynecology | DX: R87.610 Atypical squamous cells of undetermined significance on cytologic smear of cervix (ASC-US) (principal); R87.810 Cervical high risk human papillomavirus (HPV) DNA test positive | CPT/HCPCS: 57454; 88305; 88341; 88342 ==

== ENCOUNTER 2025-02-08 10:04 | Outpatient (AMB) | payer OTHER, SELFPAY ==
--- NOTE | 2025-02-08 10:05 | A.OFFVIS_ITS ---
Intake Visit Reasons: colposcopy Allergies mold Allergy (Verified 01/18/25 10:32) Unknown roaches Allergy (Intermediate, Uncoded 01/18/25 10:32) Hives HPI Comments Details: Presenting referred by Nahomi Hopper CNM regarding ascus HPV high-risk positive, HPV 16/18 negative [facility] Medical History Gonorrhea contact Cobalamin deficiency Migraines Acid reflux H. 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 We thoroughly discussed the procedure itself, including its details, alternatives, and all associated risks. This included but not limited to the following complications such as bleeding, infection, and injury to the vagina, bladder, and vessels, as well as the potential need for transfusion with all its associated risks. Subsequently, the patient sign the consent. Pap smear result: Ascus/HPV high-risk positive, HPV 16/18 negative. Urine test in office = Negative Procedure: During the procedure, the following steps were performed: A speculum was inserted, and acetic acid was applied. Colposcopy was conducted, allowing visualization of the transformation zone. Acetowhite lesions were identified at the 6+ 12 o'clock position. Cervical biopsies were obtained from the 6+ 12 o'clock position, followed by an endocervical curettage (ECC). Vaginoscopy of the upper vagina revealed no evidence of aceto-white lesions. Hemostasis was achieved using Monsel solution, and the patient tolerated the procedure well. Post-Procedure Instructions: The patient was advised to promptly contact the office or the after hours answering service or go to the emergency room if experiencing a temperature exceeding 100.4?F, abdominal pain, nausea/vomiting, or bleeding. Additionally, the patient was instructed to abstain from vaginal intercourse and bathtub use. The patient confirmed understanding of these instructions. Discharge Instructions: The patient was instructed to schedule a follow-up appointment in 2 weeks for further evaluation and management. Please note that this note was generated using a voice recognition program, and errors may have occurred during heavy antiarmor weapons infantryman. 25513-[place] of cervix including upper vagina with biopsy and ECC Procedure code (CPT) selection complete Assessment & Plan Assessment & Plan (1) ASCUS with positive high risk HPV cervical: Code(s): R87.610 - Atypical squamous cells of undetermined significance on cytologic smear of cervix (ASC-US); R87.810 - Cervical high risk human papillomavirus (HPV) DNA test positive Category: Medical Plan: Discussed with the patient the result of her abnormal pap, its significance, risk of progression, persistence, and regression. the false positive/negative rate of a Pap smear as a screening test in detecting cervical cancer and the indication for a diagnostic test -colposcopy, biopsy, endocervical curettage. The patient verbalized understanding and agreed with the plan, all questions answered. Colposcopy, biopsy /ECC done, see procedure note Orders: Orders AMB Colposcopy Today R87.610 - Atypical squamous cells of undetermined significance on cytologic smear of cervix (ASC-US), R87.810 - Cervical high risk human papillomavirus (HPV) DNA test positive Coding Level of Care Code Procedure Only Diagnoses ASCUS with positive high risk HPV cervical R87.610; R87.810 CPT Codes Colposcopy - CPT: 11324-Kmtwqzmcb of cervix including upper vagina with biopsy and ECC ([id number])
--- OUTSIDE RECORDS SUMMARY | 2025-02-08 10:35 | XMS_ITS | Clinical Summary ---
Author Organization [facility] Address [address] [place] [address] Care Team Providers Care Type Disk Quality Control Supervisor Name Role Phone No, Pcp Primary Care [...] on file Legal Sex Female 11:07 AM [facility] Gender Identity Not on file Sexual Orientation [...] C Screening 1994 PHQ-9 Depression Screen 2006 Complete Annual HRA 2012 ANDRÉS-7 Anxiety Screen 2012 Cervical Cancer Screening (Pap/HPV) 11/15/2015 Annual Preventive Exam 09/24/2022 , 09/12/2020, 05/15/2020, Additional history exists COVID-19 Vaccine (2 - 2023-2 5 season) 2024 06/22/2021 Influenza Vaccine (#1) 2025 09/12/2020 DTaP,Tdap,and Td Vaccines (7 - Td or Tdap) 09/16/2027 09/15/2017, 02/21/2016, 02/18/2006, Additional history exists RSV Vaccine (SCDM) (1 - 1-do se 75+ series) 2069 Insurance [facility] Care Teams Type Disk Quality Control Supervisor Relationship Specialty Start Date End Date No, Pcp PCP - General 01/26/22
--- OUTSIDE RECORDS SUMMARY | 2025-02-08 10:35 | XMS_ITS ---
Author Name [facility] Organization Unknown Care Team Organization Name Specialty Phone Email Start Date End Da te [facility] Catie Connors Primary Care 11/09/2022 02/21/2024 [facility] Shannon Hogan Primary Care 05/12/2022 024
--- OUTSIDE RECORDS SUMMARY | 2025-02-08 10:35 | XMS_ITS | Clinical Summary ---
Author Organization [facility] [address] [place] [address] Address [address] [place] [address] Phone Care Team Providers Care Electric Container Tester Name Role Phone Catie Baca MD Primary [...] ATTACHED FOR DETAILED DIRECTIONS 1 Active medroxyPROGESTE Grge 150 mg/mL injection Inject 150 mg into [...] Description 01/03/2025 3:45 PM EDT Clinical Support [address] [phone] Vitamin B12 deficiency (Primary Dx) 12/06/2024 1:30 PM EDT Clinical Support Adult Medicine [address] [phone] Vitamin B12 deficiency (Primary Dx) 11/08/2024 2:00 PM EDT Clinical Support Adult Medicine [address] [phone] Vitamin B12 deficiency (Primary Dx) from Last 3 Months Immunizations Name Administration Dates Next Due DTP 05/25/1995,03/25/1995,01/20/1995 DTaP (Infanrix) 6wks to less than 7yo 12/11/1999 ,07/26/1996 [id number] (Pentacel) 2mo to less than 5yo 11/16/1995,05/25/1995,03/25/1995,01/20 [...] 7:30 AM EDT Office Visit Adult Medicine [facility] [address] [place] [phone] Catie Baca MD [address] [place] [address] Health Maintenance Due Date Last Done Comments Hepatitis C Screening 06/13/2022 COVID-19 Vaccine ( season) 2024 06/22/2021, 05/30/2021 Depression Screening 07/05/2024 02/17/2024 Cervical Cancer Screening: Pap Smear 09/16/2024 09/16/2021 Influenza Vaccine (#1) 2025 , 09/12/2020, 04/20/2018, [...] Maintenance Results * Depression Screening (02/17/2024) Pathologist [facility] Depression Screening ABSTRACTED [facility] Provider HEALTH MAINTENANCE Final Result * Lipid panel (12/29/2023) Pathologist [facility] LDL/HDL Ratio 3 0 - 4 Triglycerides 35 0 - 150 mg/dL Cholesterol 160 0 - 200 mg/dL HDL 59 >=40 mg/dL LDL Cholesterol 94 0 - 100 mg/dL Blood Venous blood specimen / Unknown [facility] Provider LAB BLOOD ORDERABLES Linette l Result * HIV Screening (02/24/2022) Pathologist [facility] HIV Screening ABSTRACTED [facility] Provider HEALTH MAINTENANCE Final Result * Pap Smear (09/16/2021) Pathologist [facility] Pap smear no interpretation , abstracted [facility] Provider HEALTH MAINTENANCE Final Result from Last 3 Months or Most Recently Relevant to Health Maintenance Insurance [employer] Care Teams Electric Container Tester Relationship Specialty Start Date End Date Catie Baca MD [address] [place] [phone] PCP - General Internal Medicine 02/03/22
== END 2025-02-08 10:39 | disposition home or self-care (01) ==
LOC: HO.HWS 10:04
PROVIDERS: Visit Provider Obstetrics & Gynecology
DX: R87.610 Atypical squamous cells of undetermined significance on cytologic smear of cervix (ASC-US) (principal); R87.810 Cervical high risk human papillomavirus (HPV) DNA test positive
CPT/HCPCS: 57454

== ENCOUNTER 2025-02-19 11:16 | Outpatient (AMB) | payer OTHER, SELFPAY ==
--- NOTE | 2025-02-19 11:16 | A.OFFVIS_ITS ---
Intake Visit Reasons: colpo results Allergies mold Allergy (Verified 01/18/25 10:32) Unknown roaches Allergy (Intermediate, Uncoded 01/18/25 10:32) Hives HPI Comments Details: The patient is scheduled a telehealth visit post colpo for follow-up. The patient is doing well with no complaints. The pathology showed the following: A. Endocervix, curettage: Squamous and endocervical glandular epithelium with reactive and metaplastic changes; negative for dysplasia. B. Cervix, 6:00, biopsy: Squamous and endocervical glandular mucosa with reactive changes; negative for dysplasia. C. Cervix, 12:00, biopsy: Squamous and endocervical glandular mucosa with re active and metaplastic changes; negative for dysplasia. Comment: The atypical cells in the patient's previous Pap test ([id number]) are similar to the reactive and metaplastic changes in the current biopsies [facility] Medical History Gonorrhea contact Cobalamin deficiency Migraines Acid reflux H. 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 Sexual orientation: Straight/Heterosexual Gender identity: Female Female Reproductive History Menstrual Age of Menarche: 12 Review of Systems Const All systems reviewed & are unremarkable except as noted in HPI and below Reports as per HPI and Reports no additional complaints GI Reports no additional complaints Reports no additional complaints Telehealth Telehealth Telehealth Platform: Telephone Location of provider rendering services: practice address Location of patient: address on file Patient Identification confirmed using: Name, : Yes Telehealth method: video Patient verbally consented to treatment: Yes Patient verbally consented to billing insurance company: Yes Patient informed of any privacy concerns related to visit: Yes Minutes spent on Phone/Video with Pt.: 2 Assessment & Plan Assessment & Plan (1) ASCUS with positive high risk HPV cervical: Code(s): R87.610 - Atypical squamous cells of undetermined significance on cytologic smear of cervix (ASC-US); R87.810 - Cervical high risk human papillomavirus (HPV) DNA test positive Category: Medical Plan: Discussed with the patient the pathology results of the colposcopy biopsies & endocervical curettage . Discussed with the patient the sensitivity specificity, positive and negative predictive value in detecting cervical cancer in addition discussed the regression, persistence and progression rates. Recommended co-testing in 12 months, if cytology and or HPV are abnormal will proceed was colposcopy biopsy and endocervical curettage. Instructions given to the patient to schedule a co test appointment in 1 year. All questions answered the patient verbalized understanding. I spent a total of 20 minutes reviewing the chart, talking to the patient via video and documenting in the medical record. Coding Level of Care Code Tele Est Pt Level 3 (13983) Diagnoses ASCUS with positive high risk HPV cervical R87.610; R87.810
--- OUTSIDE RECORDS SUMMARY | 2025-02-19 12:33 | XMS_ITS | Clinical Summary ---
Author Organization [facility] Address [address] [place] [address] Care Team Providers Care Mold Builder Name Role Phone No, Pcp Primary Care [...] on file Legal Sex Female 11:07 AM [facility] Gender Identity Not on file Sexual Orientation [...] - 1-do se 75+ series) 2069 Insurance [facility] Care Teams Mold Builder Relationship Specialty Start Date End Date No, Pcp PCP - General 01/26/22
--- OUTSIDE RECORDS SUMMARY | 2025-02-19 12:33 | XMS_ITS | Clinical Summary ---
Author Organization [facility] [address] [place] [address] Address [address] [place] [address] Phone Care Team Providers Care Card Brusher Name Role Phone Catie Baca MD Primary [...] Description 01/03/2025 3:45 PM EDT Clinical Support [address] [address] Vitamin B12 deficiency (Primary Dx) 12/06/2024 1:30 PM EDT Clinical Support [address] [address] Vitamin B12 deficiency (Primary Dx) from Last 3 Months Immunizations Name Administration Dates Next Due DTP 05/25/1995,03/25/1995,01/20/1995 DTaP (Infanrix) 6wks to less than 7yo 12/11/1999 ,07/26/1996 [id number] (Pentacel) 2mo to less than 5yo 11/16/1995,05/25/1995,03/25/1995,01/20 [...] Record ed Within the last 3 months, obie brumfield many times did you visit the emergency [...] 7:30 AM EDT Office Visit Adult Medicine [address] [address] Catie Baca MD [address] [place] [address] Health Maintenance Due Date Last Done Comments [...] Maintenance Results * Depression Screening (02/17/2024) Pathologist [facility] Depression Screening ABSTRACTED [facility] Provider HEALTH MAINTENANCE Final Result * Lipid panel (12/29/2023) Pathologist [facility] LDL/HDL Ratio 3 0 - 4 Triglycerides 35 0 - 150 mg/dL Cholesterol 160 0 - 200 mg/dL HDL 59 >=40 mg/dL LDL Cholesterol 94 0 - 100 mg/dL Blood Venous blood specimen / Unknown [facility] Provider LAB BLOOD ORDERABLES Linette l Result * HIV Screening (02/24/2022) Pathologist [facility] HIV Screening ABSTRACTED [facility] Provider HEALTH MAINTENANCE Final Result * Pap Smear (09/16/2021) Pathologist [facility] Pap smear no interpretation , abstracted [facility] Provider HEALTH MAINTENANCE Final Result from Last 3 Months or Most Recently Relevant to Health Maintenance Insurance [facility] [employer] Care Teams Card Brusher Relationship Specialty Start Date End Date Catie Baca MD [address] [place] [id number] PCP - General Internal Medicine 02/03/22
== END 2025-02-19 13:05 | disposition home or self-care (01) ==
LOC: HO.HWS 11:16
PROVIDERS: Visit Provider Obstetrics & Gynecology
DX: R87.610 Atypical squamous cells of undetermined significance on cytologic smear of cervix (ASC-US) (principal); R87.810 Cervical high risk human papillomavirus (HPV) DNA test positive
CPT/HCPCS: 99213

== ENCOUNTER 2025-03-15 12:44 | Outpatient (AMB) | payer OTHER, SELFPAY ==
[2025-03-15 12:47] VITALS: BP 100/60; BMI 28.3
--- NOTE | 2025-03-15 12:47 | MHC.OFFVIS ---
Vital Signs 03/15/25 12:47 Height 5 ft 2 in Weight 155 lb BMI 28.3 BP 100/60 Intake Visit Reasons: std testing Intake Note: pt c/o vaginal itching and cramping Locksmith: Locksmith Present Allergies mold Allergy (Verified 03/15/25 12:47) Unknown roaches Allergy (Intermediate, Uncoded 01/18/25 10:32) Hives HPI Comments Details: Patient is here today for STD screening, she reports intermittent pelvic cramping and itching, occasional increased discomfort on her right side for several years, history of a 1 cm right ovarian cyst seen February 2024. No pelvic pain or urinary symptoms. New intimate partner. [facility] Medical History Gonorrhea contact Cobalamin deficiency Migraines Acid reflux H. 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 Sexual orientation: Straight/Heterosexual Gender identity: Female Female Reproductive History Menstrual Age of Menarche: 12 Review of Systems Const All systems reviewed & are unremarkable except as noted in HPI and below Physical Exam Vital Signs: Last Vital Signs BP 100/60 03/15/25 12:47 BMI result Body Mass Index 28.3 Const General: cooperative, healthy appearing and no acute distress Orientation/consciousness: patient oriented x3 GI Inspection: Yes normal to inspection Palpation (GI): Soft to palpation and Other GI palpation findings present (Nontender) Rectal Exam - Female: visual inspection normal General: Yes bladder normal to palpation External Female Exam: normal appearance of the urethra Speculum Exam - Vagina: normal appearance of the vagina, normal palpation and normal vaginal discharge Speculum Exam - Cervix: normal appearance of the cervix and normal palpation Bimanual exam- vagina & uterus: normal bimanual exam, normal palpation, uterine size normal, bladder normal to palpation, normal palpation, uterine shape normal and non-tender Bimanual Exam- Adnexa, other: normal adnexae Neuro General: patient oriented x3 Results AMB Urinalysis, Automated UA Leukoctes 0 Mone/uL Last Edit by Zayra Jiang Pretty [facility] on 03/15/25 12:57 UA Nitrite Negative Last Edit by Zayra Apolinar Olsen [facility] on 03/15/25 12:57 UA Urobilinogen 0 mg/dL Last Edit by Zayra Apolinar Olsen [facility] on 03/15/25 12:57 UA Protein 0 mg/dL Last Edit by Zayra Olsen [facility] on 03/15/25 12:57 UA pH 6.0 Last Edit by Zayra Apolinar Olsen [facility] on 03/15/25 12:57 UA Blood 1 Bertin/uL Last Edit by Zayra Apolinar Olsen [facility] on 03/15/25 12:57 UA Specific Aguirre 1.020 Last Edit by Zayra Apolinar Olsen [facility] on 03/15/25 12:57 UA Ketone Negative Last Edit by Zayra Apolinar Olsen [facility] on 03/15/25 12:57 UA Bilirubin 0 mg/dL Last Edit by Zayra Apolinar Olsen [facility] on 03/15/25 12:57 UA Glucose 0 mg/dL Last Edit by Zayra Apolinar Olsen [facility] on 03/15/25 12:57 AMB Test Urine AMB Test Urine Negative Last Edit by Zayra Apolinar Shaylajaneen [facility] on 03/15/25 12:57 Assessment & Plan Assessment & Plan (1) Possible exposure to STD: Code(s): Z20.2 - Contact with and (suspected) exposure to infections with a predominantly sexual mode of transmission Plan: BV panel and GC chlamydia obtained. Urine dip is not indicative of UTI. UPT is negative. Declines ultrasound at this time, advised to call if increased discomfort or concerns for additional assessment. The patient expressed understanding and agreement with the plan of care. All of her questions and concerns were addressed to the best of my ability. This note is constructed using voice recognition software. While every effort has been made to ensure accuracy, catholic priest errors may have been included. (2) Vagina itching: Code(s): N89.8 - Other specified noninflammatory disorders of vagina Plan BV panel and GC chlamydia obtained, await results for final plan of care. The patient expressed understanding and agreement with the plan of care. All of her questions and concerns were addressed to the best of my ability. This note is constructed using voice recognition software. While every effort has been made to ensure accuracy, catholic priest errors may have been included. Orders: Orders AMB Urinalysis Automated Today R10.2 - Pelvic and perineal pain CT NG by PCR Vag/Cerv Today N89.8 - Other specified noninflammatory disorders of vagina AMB HCG Urine Test Today R10.2 - Pelvic and perineal pain Urine Culture Today R31.29 - Other microscopic hematuria Bacterial Vaginosis Panel Today N89.8 - Other specified noninflammatory disorders of vagina Coding Level of Care Code Est Pt Level 3 (69858) Diagnoses Possible exposure to STD Z20.2 Vagina itching N89.8
--- OUTSIDE RECORDS SUMMARY | 2025-03-15 16:54 | XMS_ITS | Encounter Summary ---
Author Organization [facility] Address [address] [place] [address] Care Team Providers Care Food Preparer Name Role Phone Catie Connors MD Primary Care Prov ider Lakhwinder Desai PA-C Unavailable Unavailable Encounter Details Date Type Department Care Team Description 05/18/2024 Pt. Referral Request [facility] Group MyChart [address] [place] [address] Md Jahaira Social History Tobacco Use Types Packs/Day Years Used Date Smoking Tobacco: Never Smokeless Tobacco: Never Alcohol Use Standard Drinks/Week Comments Not Currently 0 (1 standard drink = 0.6 oz pur e alcohol) Sex Assigned at Date Recorded Not on file Job Start Date Occupation Industry Not on file Not on file Not on file documented as of this encounter Plan of Treatment Not on file documented as of this encounter Visit Diagnoses Not on filedocumented in this encounter Care Teams Food Preparer Relationship Specialty Start Date End Date Catie Connors MD [address] [place] [address] [phone] PCP - General Internal Medicine 02/03/22 Lakhwinder Desai PA-C [address] [place] [phone] Specialist Gastroenterology 03/24/23 documented as of this encounter
--- OUTSIDE RECORDS SUMMARY | 2025-03-15 16:54 | XMS_ITS | Clinical Summary ---
Author Organization [facility] Address [address] [place] [address] Care Team Providers Care Lineman Apprentice Name Role Phone Catie Connors MD Primary Care Prov ider Lakhwinder Desai PA-C Unavailable Unavailable Allergies Active Allergy Reactions Severity Noted Date Comments Mold 08/27/2023 Other (No Interaction Warnings) 08/27/2023 Pesticides and roaches Medications Medication Sig Dispensed Refills Start Date End Date Status medroxyPROGESTERone (DEPO-PROVERA) 150 MG/ML injection Inject 150 mg into the muscle Every 3 Months. 0 Active valacyclovir (VALTREX) 500 MG tablet PLEASE SEE ATTACHED FOR DETAILED DIRECTIONS 0 12/24/2020 Active fluticasone (Flonase) 50 MCG/ACT nasal spray 2 Sprays by Nasal route daily. Two sprays in each nostril daily for a week. 16 g 0 09/24/2021 Active cyanocobalamin 1000 MCG/ML injection Inject 1 mL into the muscle every 30 days. 1 mL 5 06/03/2023 Active cetirizine (ZYRTEC) 10 MG tablet Take 1 Tablet by mouth daily. 90 Tablet 1 12/07/2023 Active famotidine (PEPCID) 20 MG tablet Take 1 Tablet by mouth 2 times daily for 180 days. 180 Tablet 1 12/07/2023 Active EPINEPHrine 0.3 MG/0.3ML Solution Auto-injector Inject 1 Dose as directed Once. 1 Each 0 12/07/2023 Active cyanocobalamin 1000 MCG/ML injection Inject 1 mL into the muscle every 30 days. 1 mL 5 01/02/2024 Active clotrimazole-betame thasone (LOTRISONE) cream 1 APPL TOPICALLY 2 TIMES A DAY FOR ITCHING FOR 7 DAYS APPLY EXTERNALLY A THIN COAT TO THE AREA 0 03/03/2024 Active Miconazole 7 2 % vaginal cream 0 03/15/2024 Active Cholecalciferol (Vitamin D3) 1.25 MG (31860 UT) Cap Take 1 Capsule by mouth once a week. 12 Capsule 0 04/05/2024 Active pantoprazole (Protonix) 40 MG tablet Take 1 Tablet by mouth daily. Take in am on empty stomach, wait 30 mins and thene at to activate the medication 30 Tablet 11 04/21/2024 Active Active Problems Problem Noted Date History of Helicobacter pylori infection 04/05/2024 Chronic ear pain, bilateral 04/05/2024 Vitamin D deficiency 03/24/2023 Vitamin B12 deficiency 09/16/2020 Paresthesia and pain of both upper extre mities 09/12/2020 Overview: Cervical neck -ray normal 09/2020 Carpal tunnel syndrome, right 05/31/2020 Breast lump 07/12/2018 Overview: Benign-appearing solid mass noted on breast ultrasound, follow-up six-month ultrasound due in December 2018; six-month follow-up ultrasound showed stability. Pending another six-month follow-up ultrasound and then yearly for the next 2 years. 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 Chronic seasonal allergic rhinitis 08/29 Resolved Problems Problem Noted Date Resolved Date Overweight 10/05/2017 09/12/2020 NO ACTIVE MEDICAL PROBLEMS 03/11/201712/27 Immunizations Name Administration Dates Next Due COVID-19 (Pfizer) 06/22/2021,05/30/2021 DTP 05/25/1995,03/25/1995,01/20/1995 DTaP 12/11/1999,07/26/1996 [id number] 11/16/1995, 5,03/25/1995,01/20 HIB 11/16/1995, 5,03/25/1995,01/20 HPV (Gardasil) 07/24/2008,03/23/2008,02/25/2007 Hepatitis A-2 dose (<19yrs) 11/06/2015, 5 Hepatitis B-3 Dose (<19yrs) 11/16/1995, 5,1994 Hepatitis-A (>19YRS) 11/06/2015 Influenza Flu (PT Reported) 07/05/2022 Influenza Vaccine-preservati ve Free-quadrivalent 4 Years 09/12/2020 Influenza Vaccine-quadrivale nt 4 Years Plus 04/20/2018,03/11/2017 MMR (Bwomxuk-Fnkyd-Thpgkdm) 11/18/1998, 6 Meningococcal (Menactra) 11/06/2015,02/25/2007 PENTACEL (DTaP/IPV/HIB) 11/16/1995,05/25,03/25/1995,01/20 Polio (IPV) 12/11/1999, 5,03/25/1995,01/20 TD (STATE SUPPLIED [employer] ADULT S AND CHILDREN) 02/21/2016,02/18/2006 Tdap 09/15/2017 Varicella 03/23/2008,02/12/1999 Family History Medical History Relation Name Comments Asthma Brother diet controlled DM Suicide Father Diabetes Other 2nd cousin Relation Name [...] file Not on file Not on file Last Filed Vital Signs Vital Sign Reading Time Taken Comments Blood Pressure 102/66 04/21/2024 3:06 PM EDT Pulse 83 04/21/2024 3:06 PM EDT Temperature 36 C (96.8 F) 04/05/2024 9:16 AM EDT Respiratory Rate 14 04/05/2024 9:16 AM EDT Oxygen Saturation 98% 04/21/2024 3:06 PM EDT Inhaled Oxygen Concentration - - Weight 72.3 kg (159 lb 6.4 oz) 04/21/2024 3:06 P M EDT Height 157.5 cm (5' 2 ) 04/21/2024 3:06 PM EDT Body Mass Index 29.15 04/21/2024 3:06 PM EDT Plan of Treatment Health Maintenance Due Date Last Done Comments BMI CHECK/ADVISE 07/05/2024 04/05/2024, , 02/17/2024, Additional history exists DEPRESSION SCREENING/FOLLOWUP 07/05/2024, 08/27/2023 (Completed), 03/24/2023, Additional history exists SOCIAL NEEDS SCREENING 07/05/2024 , 08/11/2022, 09/24/2021 (Completed), Additional history exists CERVICAL CANCER SCREENING 09/16/20242021 (External Completion), 05/05/2019 (External Completion), 09/08/2017 (Completed) Covid-19 Vaccine (2022-08 4 season) 2025 06/22/2021, 05/30/2021 INFLUENZA (#1) 2025 07/05/2022, 09/02 (Completed), 09/12/2020, Additional history exists DTAP/TDAP/TD (7 - Td or Tdap) 09/16/2027, 02/21/2016, 02/18/2006, Additional history exists BASELINE HEALTH EXAM 18-39 12/28/202812/28, 12/07/2023, 12/02/2022, Additional history exists CHOLESTEROL SCREENING 12/28/2028 12/29/2023 , 10/01/2021, 09/15/2020, Additional history exists PNEUMOCOCCAL VACCINE FOR HIG H RISK PATIENTS (#1) 11/15/2059 Care Teams Lineman Apprentice Relationship Specialty Start Date End Date Catie Connors MD [address] [place] [address] PCP - General Internal Medicine 02/03/22 Lakhwinder Desai PA-C [address] [place] [phone] Specialist Gastroenterology 03/24/23
--- OUTSIDE RECORDS SUMMARY | 2025-03-15 16:54 | XMS_ITS | Encounter Summary ---
Author Organization [facility] Address [address] [place] [address] Care Team Providers Care Sewer Line Photo Inspector Name Role Phone Catie Connors MD Primary Care Prov ider Lakhwinder Desai PA-C Unavailable Unavailable Reason for Visit * Reason Onset Date Comments Prior Authorization 02/05/2022 Encounter Details Date Type Department Care Team Description 02/05/2022 Telephone Gastroenterology - [address] [place] [address] Tia Redmond MD [address] [place] [address] [phone] Prior Authorization Social History Tobacco Use Types Packs/Day Years Used Date Smoking Tobacco: Never Smokeless Tobacco: Never Alcohol Use Standard Drinks/Week Comments Not Currently 0 (1 standard drink = 0.6 oz pur e alcohol) Sex Assigned at Date Recorded Not on file Job Start Date Occupation Industry Not on file Not on file Not on file COVID-19 Exposure Response Date Recorded In the last 10 days, have yo u been in contact with someone who was confirmed or suspected to have Coronavirus/COVID-19? No / Unsure 01/26/2022 1:39 PM EDT documented as of this encounter Miscellaneous Notes * Telephone Encounter - Sunita [place] - 02/05/2022 2:32 PM EDT Prior auth request sent thru staff message documented in this encounter Plan of Treatment Not on file documented as of this encounter Visit Diagnoses Not on filedocumented in this encounter Care Teams Sewer Line Photo Inspector Relationship Specialty Start Date End Date Catie Connors MD [address] [place] [address] PCP - General Internal Medicine 02/03/22 Lakhwinder Desai PA-C [address] [place] [phone] Specialist Gastroenterology 03/24/23 documented as of this encounter
--- OUTSIDE RECORDS SUMMARY | 2025-03-15 16:54 | XMS_ITS | Encounter Summary ---
Author Organization [facility] Address [address] [place] [address] Care Team Providers Care Composition Worker Name Role Phone Guera Weston MD Primary Care Provider Unavail able Grabiel Henriquez MD Primary Care Provider Unavail able Guera Weston MD Primary Care Provider Unavail able Silverio Garcia MD Primary Care Provider Catie Varela MD Primary Care Prov ider Beni Shipman MD Primary Care Provider + Lakhwinder Desai PA-C Unavailable Unavailable Reason for Visit * Reason Onset Date Comments Error 02/09/2017 Encounter Details Date Type Department Care Team Description 01/26/2017 Abstract Adult [address] [address] Guera Weston MD ENCOUNTER ENTERED IN ERROR (Primary Dx) Social History Tobacco Use Types Packs/Day Years Used Date Smoking Tobacco: Never Alcohol Use Standard Drinks/Week Comments Yes 0 (1 standard drink = 0.6 oz pur e alcohol) rare Sex Assigned at Date Recorded Not on file Job Start Date Occupation Industry Not on file Not on file Not on file documented as of this encounter Plan of Treatment Not on file documented as of this encounter Visit Diagnoses Diagnosis ENCOUNTER ENTERED IN ERROR- Primary documented in this encounter Care Teams Composition Worker Relationship Specialty Start Date End Date Guera Weston MD PCP - General Internal Medicine 11/04/16 07/11/18 Grabiel Henriquez MD PCP - General Internal Medicine 07/12/18 01/16/19 Guera Weston MD PCP - General Internal Medicine 01/17/19 06/25/21 Silverio Garcia MD PCP - General Internal Medicine 06/26/21 12/24/21 Catie Connors MD [address] [place] [phone] PCP - General Internal Medicine 02/03/22 Beni Shipman MD [address] [place] [phone] PCP - General Internal Medicine 12/25/21 02/02/22 Lakhwinder Desai PA-C [address] [place] [phone] Specialist Gastroenterology 03/24/23 documented as of this encounter
--- OUTSIDE RECORDS SUMMARY | 2025-03-15 16:54 | XMS_ITS | Encounter Summary ---
Author Organization [facility] Address [address] [place] [address] Care Team Providers Care Medical Practice Assistant Name Role Phone Johana Weston MD Primary Care Provider Silverio Rosario MD Primary Care Provider Catie Varela MD Primary Care Prov ider Beni Shipman MD Primary Care Provider + Lakhwinder Desai PA-C Unavailable Unavailable Reason for Visit * Reason Onset Date Comments Cough 09/20/2019 URI Symptoms 09/20/2019 sinus infection 09/20/2019 Encounter Details Date Type Department Care Team Description 09/20/2019 Telephone Adult Medicine [address] [address] Johana Weston MD Cough; URI Symptoms; sinus infection Social History Tobacco Use Types Packs/Day Years Used Date Smoking Tobacco: Never Smokeless Tobacco: Never Alcohol Use Standard Drinks/Week Comments Yes 0 (1 standard drink = 0.6 oz pur e alcohol) rare Sex Assigned at Date Recorded Not on file Job Start Date Occupation Industry Not on file Not on file Not on file documented as of this encounter Miscellaneous Notes * Telephone Encounter - Skylar Smith PA-C - 09/20/2019 1:21 PM EDT Refilled these medications. Patient can pick these up at the pharmacy. * Telephone Encounter - Reny Patricio R.N. - 09/20/2019 12:46 PM EDT Pt has had cough for 3 days was seen yesterday, she has not improved C/O chest wall pain with deep breath and cough, feels SOB, able to speak in full sentences and has no audible wheezing, not using meds as advised , she is out , cough is productive for yellow Sputum,denies fever (has not taken temp) able to take PO with no difficulty, denies N/V/D, Advised homecare following the cough Protocol. RN reinforced telephone consultation and advice. Reviewed with the patient the signs and symptoms to watch for that would require immediate attention. If symptoms change, worsen or increase in intensity, to call back immediately. Pt is asking for refill on zyrtec and rx for flonase * Telephone Encounter - Bro Haque - 09/20/2019 12:41 PM EDT Patient returning call to triage. Please contact at [phone] * Telephone Encounter - Reny Patricio R.N. - 09/20/2019 12:07 PM EDT Pt was seen yesterday with viral URI complicated with seasonal allergies , was advised to us home care measures as well as zyrtec and Flonase I left a message for the patient to return my call. * Telephone Encounter - Candie Amos - 09/20/2019 10:07 AM EDT Symptoms patient is having: Pt came in for office visit yesterday 09/19/19. Pt states she wants a call back from her doctor only because only she understands her allergies. Pt feels worse. For ALL patients calling to schedule any appointment (routine, sick visit, follow up, consult, etc.) in the outpatient setting please ask the following questions. ??? Do you have fever, cough or shortness of breath? NO ??? Have you had close contact with someone with Coronavirus in the last 14 days? NO If YES to either, send the call to triage and do not book If pain or injury related was it due to an accident at work or from a motor vehicle accident? If yes, gather 3rd alliance party insurance information Date of accident/Injury: How long has patient had these symptoms?: 09/16/19 PCP: JOHANA WESTON Payor: ANGELES / Plan: [employer] HMO F 1+/$0 / Product Type: HMO [id number] documented in this encounter Plan of Treatment Not on file documented as of this encounter Visit Diagnoses Not on filedocumented in this encounter Care Teams Medical Practice Assistant Relationship Specialty Start Date End Date Johana Weston MD PCP - General Internal Medicine 01/17/19 06/25/21 Silverio Garcia MD PCP - General Internal Medicine 06/26/21 12/24/21 Catie Connors MD [address] [place] [address] [id number] PCP - General Internal Medicine 02/03/22 Beni Shipman MD [address] [place] [phone] PCP - General Internal Medicine 12/25/21 02/02/22 Lakhwinder Desai PA-C [address] [place] [address] Specialist Gastroenterology 03/24/23 documented as of this encounter
--- OUTSIDE RECORDS SUMMARY | 2025-03-15 16:54 | XMS_ITS | Encounter Summary ---
Author Organization [facility] Address [address] [place] [address] Care Team Providers Care Storage Engineer Name Role Phone Guera Weston MD Primary Care Provider Unavail able Grabiel Henriquez MD Primary Care Provider Unavail able Guera Weston MD Primary Care Provider Unavail able Silverio Garcia MD Primary Care Provider Catie Varela MD Primary Care Prov ider Beni Shipman MD Primary Care Provider + Lakhwinder Desai PA-C Unavailable Unavailable Encounter Details Date Type Department Care Team Description 03/25/2018 Timber Sizer Report Medical Records [address] [place] [address] Apolinar Lopez MD Social History Tobacco Use Types Packs/Day Years [...] on filedocumented in this encounter Care Teams Storage Engineer Relationship Specialty Start Date End Date Guera Weston MD PCP - General Internal Medicine 11/04/16 07/11/18 Grabiel Henriquez MD PCP - General Internal Medicine 07/12/18 01/16/19 Guera Weston MD PCP - General Internal Medicine 01/17/19 06/25/21 Silverio Garcia MD PCP - General Internal Medicine 06/26/21 12/24/21 Catie Connors MD [address] [place] [address] PCP - General Internal Medicine 02/03/22 Beni Shipman MD [address] [place] [address] PCP - General Internal Medicine 12/25/21 02/02/22 Lakhwinder Desai PA-C [address] [place] [address] Specialist Gastroenterology 03/24/23 documented as of this encounter
--- OUTSIDE RECORDS SUMMARY | 2025-03-15 16:54 | XMS_ITS | Encounter Summary ---
Author Organization [facility] Address [address] [place] [address] Care Team Providers Care Cut Off Sawyer Name Role Phone Catie Connors MD Primary Care Prov ider Lakhwinder Desai PA-C Unavailable Unavailable Reason for Visit * Reason Onset Date Comments refill request 06/26/2022 Encounter Details Date Type Department Care Team Description 06/26/2022 Refill Gastroenterology - [address] [place] [phone] Ever Loya PA-C refill request Social History Tobacco Use Types Packs/Day Years [...] encounter Miscellaneous Notes * Telephone Encounter - Megan Meeks - 06/26/2022 9:29 AM EST KRISTIN 01/20/22 NOV 07/21/22 documented in this encounter Plan of Treatment Not on file documented as of this encounter Visit Diagnoses Not on filedocumented in this encounter Care Teams Cut Off Sawyer Relationship Specialty Start Date End Date Catie Connors MD [address] [place] [address] PCP - General Internal Medicine 02/03/22 Lakhwinder Desai PA-C [address] [place] [address] Specialist Gastroenterology 03/24/23 documented as of this encounter
--- OUTSIDE RECORDS SUMMARY | 2025-03-15 16:54 | XMS_ITS | Encounter Summary ---
Author Organization [facility] Address [address] [place] [address] Care Team Providers Care Veterinarian Helper Name Role Phone Silverio Garcia MD Primary Care Provider Catie Varela MD Primary Care Prov ider Beni Shipman MD Primary Care Provider + Lakhwinder Desai PA-C Unavailable Unavailable Encounter Details Date Type Department Care Team Description 09/16/2021 Diesel Engine Operator Report Medical Records [address] [place] [address] Nahomi Hopper CNM Social History Tobacco Use Types Packs/Day Years Used Date Smoking Tobacco: Never Smokeless Tobacco: Never Alcohol Use Standard Drinks/Week Comments Yes 0 (1 standard drink = 0.6 oz pur e alcohol) rare Sex Assigned at Date Recorded Not on file Job Start Date Occupation Industry Not on file Not on file Not on file COVID-19 Exposure Response Date Recorded In the last month, have you been in contact with someone who was confirmed or suspected to have Coronavirus / COVID-19? No / Unsure 09/03/2021 4:03 PM EST documented as of this encounter Plan of Treatment Not on file documented as of this encounter Visit Diagnoses Not on filedocumented in this encounter Care Teams Veterinarian Helper Relationship Specialty Start Date End Date Silverio Garcia MD PCP - General Internal Medicine 06/26/21 12/24/21 Catie Connors MD [address] [place] [address] PCP - General Internal Medicine 02/03/22 Beni Shipman MD [address] [place] [address] PCP - General Internal Medicine 12/25/21 02/02/22 Lakhwinder Desai PA-C [address] [place] [address] Specialist Gastroenterology 03/24/23 documented as of this encounter
--- OUTSIDE RECORDS SUMMARY | 2025-03-15 16:54 | XMS_ITS | Encounter Summary ---
Author Organization [facility] Address [address] [place] [address] Care Team Providers Care Commercial Center Manager Name Role Phone Guera Weston MD Primary Care Provider Silverio Rosario MD Primary Care Provider Catie Varela MD Primary Care Prov ider Beni Shipman MD Primary Care Provider + Lakhwinder Desai PA-C Unavailable Unavailable Reason for Visit * Reason Comments E-prescribe Rx Request Encounter Details Date Type Department Care Team Description 11/20/2020 Refill Adult Medicine [address] [address] Skylar Mae PA-C E-prescribe Rx Request Social History Tobacco Use Types Packs/Day Years [...] have Coronavirus / COVID-19? No / Unsure 11/01/2020 9:02 AM EDT documented as of this encounter Miscellaneous Notes * Telephone Encounter - Patsy Anton M.A. - 11/22/2020 10:52 AM EDT Last office visit 10/01/20 * Telephone Encounter - Sharifamonica Sulaiman - 11/22/2020 10:11 AM EDT Patient would like script to be: E-PRESCRIBED/FAXED TO PHARMACY WHEN WAS THE PATIENT'S LAST APPOINTMENT IN ADULT MEDICINE? 10/01/20 WHEN WAS THE LAST TIME THE PATIENT SAW THEIR PCP? Same as above Does patient have an upcoming appointment? no (THE MEDICATION REQUESTED IS ON THE MED LIST ABOVE) All of the medications requested were on the CURRENT MEDS list Did you check the Pharmacy information above?: YES Patient wants: please see sig Is this a mail order prescription request ? NO If the refill is from a FAXED refill request what is the RX # listed on the fax? N/A Patients current insurance carrier is: Payor: [employer] / Plan: [employer] HMO F 1+/$0 / Product Type: [id number] documented in this encounter Plan of Treatment Not on file documented as of this encounter Visit Diagnoses Not on filedocumented in this encounter Care Teams Commercial Center Manager Relationship Specialty Start Date End Date Guera Weston MD PCP - General Internal Medicine 01/17/19 06/25/21 Silverio Garcia MD PCP - General Internal Medicine 06/26/21 12/24/21 Rob Gutierrez, Catie Andrews MD [address] [place] [address] PCP - General Internal Medicine 02/03/22 Beni Shipman MD [address] [place] [address] PCP - General Internal Medicine 12/25/21 02/02/22 Lakhwinder Desai PA-C [address] [place] [address] Specialist Gastroenterology 03/24/23 documented as of this encounter
--- OUTSIDE RECORDS SUMMARY | 2025-03-15 16:54 | XMS_ITS | Encounter Summary ---
Author Organization [facility] Address [address] [place] [address] Care Team Providers Care Research Aide Name Role Phone Guera Weston MD Primary Care Provider Unavail able Grabiel Henriquez MD Primary Care Provider Unavail able Guera Weston MD Primary Care Provider Unavail able Silverio Garcia MD Primary Care Provider Catie Varela MD Primary Care Prov ider Beni Shipman MD Primary Care Provider + Lakhwinder Desai PA-C Unavailable Unavailable Reason for Visit * Reason Onset Date Comments refill request 03/28/2018 Encounter Details Date Type Department Care Team Description 03/28/2018 Refill Adult Medicine [address] [address] Guera Weston MD refill request Social History Tobacco Use Types [...] encounter Miscellaneous Notes * Telephone Encounter - Eva Rashid - 03/28/2018 1:46 PM EDT Patient would like script to be: E-PRESCRIBED/FAXED TO PHARMACY WHEN WAS THE PATIENT'S LAST APPOINTMENT IN ADULT MEDICINE? 03/21/18 WHEN WAS THE LAST TIME THE PATIENT SAW THEIR PCP? Same as above Does patient have an upcoming appointment? Yes 04/20/18 (THE MEDICATION REQUESTED IS ON THE MED LIST ABOVE) All of the medications requested were on the CURRENT MEDS list Did you check the Pharmacy information above?: YES Patient wants: 30 -day supply Is this a mail order prescription request ? NO If the refill is from a FAXED refill request what is the RX # listed on the fax? N/A Patients current insurance carrier is: Payor: [employer] FFS / Plan: [email or web address]IANCE / Product Type: MEDICAID RISK documented in this encounter Plan of Treatment Not on file documented as of this encounter Visit Diagnoses Not on filedocumented in this encounter Care Teams Research Aide Relationship Specialty Start Date End Date Guera Weston MD PCP - General Internal Medicine 11/04/16 07/11/18 Grabiel Henriquez MD PCP - General Internal Medicine 07/12/18 01/16/19 Guera Weston MD PCP - General Internal Medicine 01/17/19 06/25/21 Silverio Garcia MD PCP - General Internal Medicine 06/26/21 12/24/21 Catie Connors MD [address] [place] [address] PCP - General Internal Medicine 02/03/22 Beni Shipman MD [address] [place] [address] PCP - General Internal Medicine 12/25/21 02/02/22 Lakhwinder Desai PA-C [address] [place] [address] Specialist Gastroenterology 03/24/23 documented as of this encounter
--- OUTSIDE RECORDS SUMMARY | 2025-03-15 16:54 | XMS_ITS | Encounter Summary ---
Author Organization [facility] Address [address] [place] [address] Care Team Providers Care Executive Talent Acquisition Consultant Name Role Phone Guera Weston MD Primary Care Provider Unavail able Grabiel Henriquez MD Primary Care Provider Unavail able Guera Weston MD Primary Care Provider Unavail able Silverio Garcia MD Primary Care Provider Catie Varela MD Primary Care Prov ider Beni Shipman MD Primary Care Provider + Lakhwinder Desai PA-C Unavailable Unavailable Encounter Details Date Type Department Care Team Description 07/26/2017 Night Triage Doc Medical Records [address] [place] [address] Abstract, Provider Social History Tobacco Use Types Packs/Day Years [...] on filedocumented in this encounter Care Teams Executive Talent Acquisition Consultant Relationship Specialty Start Date End Date Guera Weston MD PCP - General Internal Medicine 11/04/16 07/11/18 Grabiel Henriquez MD PCP - General Internal Medicine 07/12/18 01/16/19 Guera Weston MD PCP - General Internal Medicine 01/17/19 06/25/21 Silverio Garcia MD PCP - General Internal Medicine 06/26/21 12/24/21 Catie Connors MD [address] [place] [address] PCP - General Internal Medicine 02/03/22 Beni Shipman MD [address] [place] [address] PCP - General Internal Medicine 12/25/21 02/02/22 Lakhwinder Desai PA-C [address] [place] [address] Specialist Gastroenterology 03/24/23 documented as of this encounter
--- OUTSIDE RECORDS SUMMARY | 2025-03-15 16:54 | XMS_ITS | Encounter Summary ---
Author Organization [facility] Address [address] [place] [address] Care Team Providers Care Language Specialist Name Role Phone Guera Weston MD Primary Care Provider Unavail able Silverio Garcia MD Primary Care Provider Catie Varela MD Primary Care Prov ider Beni Shipman MD Primary Care Provider + Lakhwinder Desai PA-C Unavailable Unavailable Encounter Details Date Type Department Care Team Description 05/05/2019 Old Medical Records Medical Records [address] [place] [id number] Abstract, Provider Social History Tobacco Use Types [...] on filedocumented in this encounter Care Teams Language Specialist Relationship Specialty Start Date End Date Guera Weston MD PCP - General Internal Medicine 01/17/19 06/25/21 Silverio Garcia MD PCP - General Internal Medicine 06/26/21 12/24/21 Catie Connors MD [address] [place] [address] PCP - General Internal Medicine 02/03/22 Beni Shipman MD [address] [place] [address] PCP - General Internal Medicine 12/25/21 02/02/22 Lakhwinder Desai PA-C [address] [place] [address] Specialist Gastroenterology 03/24/23 documented as of this encounter
--- OUTSIDE RECORDS SUMMARY | 2025-03-15 16:54 | XMS_ITS | Encounter Summary ---
Author Organization [facility] Address [address] [place] [address] Care Team Providers Care Speed Runner Name Role Phone Guera Weston MD Primary Care Provider Unavail able Silverio Garcia MD Primary Care Provider Catie Varela MD Primary Care Prov ider Beni Shipman MD Primary Care Provider + Lakhwinder Desai PA-C Unavailable Unavailable Encounter Details Date Type Department Care Team Description 05/05/2019 Old Medical Records Medical Records [address] [place] [address] Abstract, Provider Social History Tobacco Use Types [...] on filedocumented in this encounter Care Teams Speed Runner Relationship Specialty Start Date End Date Guera Weston MD PCP - General Internal Medicine 01/17/19 06/25/21 Silverio Garcia MD PCP - General Internal Medicine 06/26/21 12/24/21 Catie Connors MD [address] [place] [address] PCP - General Internal Medicine 02/03/22 Beni Shipman MD [address] [place] [address] PCP - General Internal Medicine 12/25/21 02/02/22 Lakhwinder Desai PA-C [address] [place] [address] Specialist Gastroenterology 03/24/23 documented as of this encounter
--- OUTSIDE RECORDS SUMMARY | 2025-03-15 16:54 | XMS_ITS | Encounter Summary ---
Author Organization [facility] Address [address] [place] [address] Care Team Providers Care Cloth Edge Singer Name Role Phone Guera Weston MD Primary Care Provider Silverio Rosario MD Primary Care Provider Catie Varela MD Primary Care Prov ider Beni Shipman MD Primary Care Provider + Lakhwinder Desai PA-C Unavailable Unavailable Encounter Details Date Type Department Care Team Description 09/16/[address] [address] Guera Weston MD Social History Tobacco Use Types Packs/Day [...] have Coronavirus / COVID-19? No / Unsure 09/15/2020 9:00 AM EDT documented as of this encounter Plan of Treatment Not on file documented as of this encounter Visit Diagnoses Not on filedocumented in this encounter Care Teams Cloth Edge Singer Relationship Specialty Start Date End Date Guera Weston MD PCP - General Internal Medicine 01/17/19 06/25/21 Silverio Garcia MD PCP - General Internal Medicine 06/26/21 12/24/21 Catie Connors MD [address] [place] [address] PCP - General Internal Medicine 02/03/22 Beni Shipman MD [address] [place] [address] PCP - General Internal Medicine 12/25/21 02/02/22 Lakhwinder Desai PA-C [address] [place] [address] Specialist Gastroenterology 03/24/23 documented as of this encounter
--- OUTSIDE RECORDS SUMMARY | 2025-03-15 16:54 | XMS_ITS | Encounter Summary ---
Author Organization [facility] Address [address] [place] [address] Care Team Providers Care Director Of Emergency Nursing Name Role Phone Catie Connors MD Primary Care Prov ider Lakhwinder Desai PA-C Unavailable Unavailable Encounter Details Date Type Department Care Team Description 07/24/2022 Hospital Medical Records [address] [place] [address] Tia Redmond MD [address] [place] [address] Social History Tobacco Use Types Packs/Day Years [...] was confirmed or suspected to have Coronavirus/COVID-19? Yes 07/22/2022 3:24 PM EST documented as of this encounter Plan of Treatment Not on file documented as of this encounter Visit Diagnoses Not on filedocumented in this encounter Care Teams Director Of Emergency Nursing Relationship Specialty Start Date End Date Catie Connors MD [address] [place] [address] [phone] PCP - General Internal Medicine 02/03/22 Lakhwinder Desai PA-C [address] [place] [address] Specialist Gastroenterology 03/24/23 documented as of this encounter
--- OUTSIDE RECORDS SUMMARY | 2025-03-15 16:54 | XMS_ITS | Encounter Summary ---
Author Organization [facility] Address [address] [place] [address] Care Team Providers Care Marble Supervisor Name Role Phone Guera Weston MD Primary Care Provider Unavail able Grabiel Henriquez MD Primary Care Provider Unavail able Guera Weston MD Primary Care Provider Unavail able Silverio Garcia MD Primary Care Provider Catie Varela MD Primary Care Prov ider Beni Shipman MD Primary Care Provider + Lakhwinder Desai PA-C Unavailable Unavailable Encounter Details Date Type Department Care Team Description 09/16/2017 [place] [facility] [address] [address] Guera Weston MD Social History Tobacco Use [...] on filedocumented in this encounter Care Teams Marble Supervisor Relationship Specialty Start Date End Date Guera Weston MD PCP - General Internal Medicine 11/04/16 07/11/18 Grabiel Henriquez MD PCP - General Internal Medicine 07/12/18 01/16/19 Guera Weston MD PCP - General Internal Medicine 01/17/19 06/25/21 Silverio Garcia MD PCP - General Internal Medicine 06/26/21 12/24/21 Catie Connors MD [address] [place] [address] [phone] PCP - General Internal Medicine 02/03/22 Beni Shipman MD [address] [place] [address] PCP - General Internal Medicine 12/25/21 02/02/22 Lakhwinder Desai PA-C [address] [place] [address] Specialist Gastroenterology 03/24/23 documented as of this encounter
== END 2025-03-15 14:27 | disposition home or self-care (01) ==
LOC: HO.HWS 12:44
PROVIDERS: Visit Provider Advanced Practice Midwife
DX: Z20.2 Contact with and (suspected) exposure to infections with a predominantly sexual mode of transmission (principal); N89.8 Other specified noninflammatory disorders of vagina; R10.2 Pelvic and perineal pain
CPT/HCPCS: 99213

== ENCOUNTER 2025-03-15 12:44 | Outpatient (REF) | payer OTHER, SELFPAY ==
--- OUTSIDE RECORDS SUMMARY | 2025-03-15 17:03 | XMS_ITS | Clinical Summary ---
Author Organization [facility] Address [address] [place] [address] Care Team Providers Care Instructional Aide Name Role Phone No, Pcp Primary Care [...] on file Legal Sex Female 11:07 AM [facility] Gender Identity Not on file Sexual [...] Additional history exists COVID-19 Vaccine (2 - 2024-2 6 season) 2025 06/22/2021 Influenza Vaccine (#1) 2025 09/12/2020 DTaP,Tdap,and Td Vaccines (7 - Td or Tdap) 09/16/2027 09/15/2017, 02/21/2016, 02/18/2006, Additional history exists RSV Vaccine (SCDM) (1 - 1-do se 75+ series) 2069 Insurance [facility] Care Teams Instructional Aide Relationship Specialty Start Date End Date No, Pcp PCP - General 01/26/22
[2025-03-15 20:38] LABS: Bacterial Vaginosis PCR NEGATIVE (Negative); Candida Group PCR NOT DETECTED (Not Detect); Candida glab krusei PCR NOT DETECTED (Not Detect); Trichomonas vaginalis PCR NOT DETECTED (Not Detect)
[2025-03-15 22:19] LABS: CT PCR NOT DETECTED (Not Detect.); NG PCR NOT DETECTED (Not Detect.)
== END 2025-03-15 12:45 | disposition home or self-care (01) ==
LOC: HO.LAB 12:44
PROVIDERS: Visit Provider Advanced Practice Midwife
DX: Z20.2 Contact with and (suspected) exposure to infections with a predominantly sexual mode of transmission (principal); N89.8 Other specified noninflammatory disorders of vagina; R10.2 Pelvic and perineal pain; R31.29 Other microscopic hematuria; Z32.02 Encounter for pregnancy test, result negative
CPT/HCPCS: 81003; 81025; 81515; 87086; 87491; 87591; 99212

== ENCOUNTER 2025-03-15 13:03 | Outpatient (REF) | payer OTHER, SELFPAY | END 2025-03-15 13:04 | disposition home or self-care (01) | LOC: HO.LNP 13:03 | PROVIDERS: Visit Provider Advanced Practice Midwife | DX: Z13.89 Encounter for screening for other disorder (principal) ==

== ENCOUNTER 2025-03-27 14:23 | Outpatient (AMB) | payer OTHER, SELFPAY ==
--- NOTE | 2025-03-27 14:27 | MHC.OFFVIS ---
Vital Signs 03/27/25 14:38 Height 5 ft 2 in Weight 154 lb BMI 28.2 Intake Visit Reasons: pelvic cramping Intake Note: cramping for 1 1/2 weeks . pain at level 2 since last wednesday. Replanting Machine Crewman Required: No Information Interpreted: non-clinical & clinical Chief Security Officer: Chief Security Officer Present ([email or web address]) Accompanied by: Self / Same As Patient Allergies mold Allergy (Verified 03/27/25 14:34) Unknown roaches Allergy (Intermediate, Uncoded 03/27/25 14:34) Hives Medication List - Last Reconciled 03/27/25 by Nila Gallardo LPN citalopram 10 mg PO QAM hydroxyzine HCl 25 mg PO BEDTIME mecobalamin (vitamin B12) mcg IM medroxyprogesterone (Depo-Provera) 150 mg IM [id number] 90 days valacyclovir (Valtrex) 500 mg PO BID 3 days Is last menstrual period known: No Post menopausal: No Patient : No Do you need a note to return to daycare/school/sports/work: No HPI Comments Details: Patient is here today for a follow up on pelvic pain she reports the pain has decreased from 10 to 2-3/10. She denies any other changes. [facility] Medical History Gonorrhea contact Cobalamin deficiency Migraines Acid reflux H. 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 Sexual orientation: Straight/Heterosexual Gender identity: Female Female Reproductive History Menstrual Age of Menarche: 12 control method: progesterone injection Total pregnancies: 1 Number of Living Children: 1 Review of Systems Const All systems reviewed & are unremarkable except as noted in HPI and below Physical Exam Vital Signs: BMI result Body Mass Index 28.2 Const General: cooperative, healthy appearing and no acute distress Orientation/consciousness: patient oriented x3 GI Inspection: Yes normal to inspection Palpation (GI): Soft to palpation and Other GI palpation findings present (Nontender) Rectal Exam - Female: visual inspection normal General: Yes bladder normal to palpation External Female Exam: normal appearance of the urethra Speculum Exam - Vagina: normal appearance of the vagina, normal palpation and normal vaginal discharge Speculum Exam - Cervix: normal appearance of the cervix and normal palpation Bimanual exam- vagina & uterus: normal bimanual exam, normal palpation, uterine size normal, bladder normal to palpation, normal palpation, uterine shape normal and non-tender Bimanual Exam- Adnexa, other: normal adnexae and tender on the right (mild) Neuro General: patient oriented x3 Results AMB Test Urine AMB Test Urine Negative Last Edit by Nila Gallardo LPN on 03/27/25 14:44 AMB Urinalysis, Automated UA Leukoctes Mone/uL Last Edit by Nila Gallardo LPN on 03/27/25 14:47 UA Nitrite Last Edit by Nila Gallardo LPN on 03/27/25 14:47 UA Urobilinogen 3.5 mg/dL Last Edit by Nila Gallardo LPN on 03/27/25 14:47 UA Protein mg/dL Last Edit by Nila Gallardo LPN on 03/27/25 14:47 UA pH Last Edit by Nila Gallardo LPN on 03/27/25 14:47 UA Blood 80 Bertin/uL Last Edit by Nila Gallardo LPN on 03/27/25 14:47 UA Specific [place] 1.025 Last Edit by Nila Gallardo LPN on 03/27/25 14:47 UA Ketone Last Edit by Nila Gallardo LPN on 03/27/25 14:47 UA Bilirubin mg/dL Last Edit by Nila Gallardo LPN on 03/27/25 14:47 UA Glucose mg/dL Last Edit by Nila Gallardo LPN on 03/27/25 14:47 Results Reviewed Results Reviewed: Laboratory Last Values Specific [place] (Auto) 1.025 03/27/25 14:43 Urine Blood (Auto) 80 Bertin/uL 03/27/25 14:43 Urine Urobilinogen (Auto) 3.5 mg/dL 03/27/25 14:43 Tst Clinic Negative 03/27/25 14:43 Assessment & Plan Assessment & Plan (1) Pelvic pain: Code(s): R10.2 - Pelvic and perineal pain Category: Medical Plan Reviewed test results cultures all negative, plan pelvic ultrasound and follow up pending results. Urine dip today revealed 2+ blood previous visit revealed similar findings, advised to see her primary care for a follow up for further evaluation. Advised to call if pain increases or persist. The patient expressed understanding and agreement with the plan of care. All of her questions and concerns were addressed to the best of my ability. This note is constructed using voice recognition software. While every effort has been made to ensure accuracy, material expeditor errors may have been included. Orders: Orders US pelvic and transvaginal Today R10.2 - Pelvic and perineal pain AMB HCG Urine Test Today Z32.02 - Encounter for test, result negative AMB Urinalysis Automated Today R10.2 - Pelvic and perineal pain Coding Level of Care Code Est Pt Level 3 (12474) Diagnoses Pelvic pain R10.2
[2025-03-27 14:38] VITALS: BMI 28.2
--- OUTSIDE RECORDS SUMMARY | 2025-03-27 17:39 | XMS_ITS | Clinical Summary ---
Author Organization [facility] Address [address] [place] [address] Care Team Providers Care Wealth Management Manager Name Role Phone No, Pcp Primary Care [...] on file Legal Sex Female 11:07 AM [facility] Gender Identity Not on file [...] - 1-do se 75+ series) 2069 Insurance [facility] Care Teams Wealth Management Manager Relationship Specialty Start Date End Date No, Pcp PCP - General 01/26/22
--- OUTSIDE RECORDS SUMMARY | 2025-03-27 17:39 | XMS_ITS | Clinical Summary ---
Author Organization [facility] [address] [place] [address] Address [address] [place] [address] Phone Care Team Providers Care Soa Integration Developer Name Role Phone Catie Baca MD Primary Care Prov ider Allergies Active Allergy Reactions Criticality Noted Date Comments Mold 08/27/2023 Other 08/27/2023 Pesticides and roaches Medications cetirizine (ZyrTEC) 10 mg tablet Take 1 [...] Do not crush, chew, or split. Active cyanocobalamin (VITAMIN B-12) 1,000 mcg/mL injection Inject 1 mL into the muscle every 30 days. 03/07/20 25 Discontinu ed(Lloyd [facility]vera) Hospital, Clinic, or Other Facility Administered Medication Ordered Dose Route Frequency Start Date End Date Status cyanocobalamin (VITAMIN B-12) injection 1,000 mcgIndications:Vit steiner B12 deficiency 1000 mcg IM Every 30 days 03/07/2025 09/03/2025 Active cyanocobalamin (VITAMIN B-12) injection 1,000 mcgIndications:Vit steiner B12 deficiency 1000 mcg IM Every 30 days 05/10/2024 03/07/2025 Discontinue d Active Problems Problem Noted Date Diagnosed Date Chronic ear pain, bilateral 04/07/2024 Vitamin D deficiency 03/24/2023 Assessment & Plan (10/04/2024 9:07 AM EDT): Orders: Vitamin B12; Future Vitamin D 1,25 dihydroxy; Future Vitamin B12 deficiency 09/16/2020 Assessment & Plan (03/07/2025 8:04 AM EDT): Will restart B12 shots today. Recheck in aprox 6 months. Orders: cyanocobalamin (VITAMIN B-12) injection 1,000 mcg Assessment & Plan (10/04/2024 9:07 AM EDT): [...] Encounters Date Type Department Care Team Description 03/07/2025 7:30 AM EDT Office Visit Adult Medicine [address] [phone] Catie Martinez MD Adult general medical examination (Primary Dx); Need for hepatitis C screening test; Encounter for lipid screening for cardiovascular disease; Eczema, unspecified type; Vitamin B12 deficiency 01/03/2025 3:45 PM EDT Clinical Support [address] [phone] Vitamin B12 deficiency (Primary Dx) from Last 3 Months Immunizations Name Administration Dates Next Due DTP 05/25/1995,03/25/1995,01/20/1995 DTaP (Infanrix) 6wks to less than 7yo 12/11/1999 ,07/26/1996 [id number] (Pentacel) 2mo to less than 5yo 11/16/1995,05/25/1995,03/25/1995,01/20 [...] Sign Reading Time Taken Comments Blood Pressure 104/64 03/07/2025 7:38 AM EDT Pulse 86 03/07/2025 7:38 AM EDT Temperature 36.3 C (97.3 F) 03/07/2025 7:38 AM EDT Respiratory Rate 14 03/07/2025 7:38 AM EDT Oxygen Saturation 98% 03/07/2025 7:38 AM EDT Inhaled Oxygen Concentration - - Weight 71.7 kg (158 lb) 03/07/2025 7:38 AM EDT Height 157.5 cm (5' 2 ) 03/07/2025 7:38 AM EDT Body Mass Index 28.9 03/07/2025 7:38 AM EDT Plan of Treatment Upcoming Encounters Date Type Department Care Team (Late st Contact Info) Description 04/02/2025 3:30 PM EDT Office Visit [address] [phone] Saqib Evans MD [address] [place] [address] 04/04/2025 11:30 AM EDT Clinical Support Adult [address] [phone] 03/08/2026 2:00 PM EDT Office Visit [address] [phone] Catie Baca MD [address] [place] [phone] Health Maintenance Due Date Last Done Comments COVID-19 Vaccine ( season) 2025 06/22/2021, 05/30/2021 Influenza Vaccine (#1) 2025 , 09/12/2020, 04/20/2018, Additional history exists Social Influencers of Health Screening 05/11/2025 05/11/2024 DTaP,Tdap,and Td Vaccines (9 - Td or Tdap) 09/16/2027 09/15/2017, 02/21/2016, 02/18/2006, Additional history exists Cervical Cancer Screening: Pap Smear 11/05/2027 11/04/2024, 09/16/2021 Cholesterol Screening (Lipid Panel) 03/08/2030 03/08/2025, 12/29/2023, 12/29/2023 RSV Immunization Adult Patients (1 - 1-dose 75+ series) 2069 HIB Vaccines Completed 11/16/1995, 05/06, 03/25/1995, Additional [...] complete this topic HIV Screening Completed 02/24/2022 Depression Screening Completed 03/07/2025, 02/17/20 Hepatitis C Screening Completed 03/08/2025 Meningococcal B Vaccine Aged Out No l [...] Procedure Name Priority Date/Time Associated Diagnosis Comments CBC WITH AUTO DIFFERENTIAL Routine 03/08/2025 8:17 AM EDT Adult general medical examination COMPREHENSIVE METABOLIC PANEL Routine 03/08/2025 8:17 AM EDT Adult general medical examination CBC AND DIFFERENTIAL Routine 03/08/2025 8:17 AM EDT Adult general medical examination LIPID PANEL WITH REFLEX TO DIRECT LDL Routine 03/08/2025 8:17 AM EDT Encounter for lipid screening for cardiovascular disease THYROID STIMULATING HORMONE WITH REFLEX TO FREE T4 AND FREE T3 Routine 03/08/2025 8:17 AM EDT Adult general medical examination HEPATITIS C ANTIBODY Routine 03/08/2025 8:17 AM EDT Need for hepatitis C screening test DEPRESSION SCREENING Routine 02/17/2024 HIV SCREENING Routine 02/24/2022 PAP SMEAR Routine 09/16/2021 from Last 3 Months or Most Recently Relevant to Health Maintenance Results * Hepatitis C antibody (03/08/2025 8:17 AM EDT) Hepatitis C Antibody Negative Negative LAB CHEMISTRY METHOD 03/08/2025 12:20 PM EDT [facility] Blood Venous blood specimen / Unknown Venipuncture / Unknown 03/08/2025 8:17 AM EDT 03/08/2025 8:17 AM EDT Catie Baca MD LAB BLOOD ORDERABL ES Final Result [facility] [address] [place] [address], [place] [phone] * Thyroid stimulating hormone with reflex to free t4 and free t3 (03/08/2025 8:17 AM EDT) TSH 1.05 0.40 - 4.00 mcIU/mL LAB CHEMISTRY METHOD 03/08/2025 11:40 AM EDT [facility] Blood Venous blood specimen / Unknown Venipuncture / Unknown 03/08/2025 8:17 AM EDT 03/08/2025 8:17 AM EDT Catie Baca MD LAB BLOOD ORDERABL ES Final Result Performing Organization Address City/[facility]/ZIP Co de Phone Number [facility] [address] [place] [address], [place] [phone] * Lipid panel with reflex to direct LDL (03/08/2025 8:17 AM EDT) Cholesterol 162 0 - 200 mg/dL LAB CHEMISTRY METHOD 03/08/2025 10:47 AM EDT [facility] Triglycerides 47 0 - 150 mg/dL LAB CHEMISTRY METHOD 03/08/2025 10:47 AM EDT [facility] HDL 59 >=40 mg/dL LAB CHEMISTRY METHOD 03/08/2025 10:47 AM EDT [facility] LDL Calculated 94 0 - 100 mg/dL LAB CHEMISTRY METHOD 03/08/2025 10:47 AM EDT [facility] Comment:Estimated LDL Calcul ated using equation: Total cholesterol - HDL cholesterol - (Triglycerides/5) VLDL Cholesterol Sergo 9.4 mg/dL LAB CHEMISTRY METHOD 03/08/2025 10:47 AM EDT [facility] Non HDL Chol. (LDL+VLDL) 103 <145 mg/dL LAB CHEMISTRY METHOD 03/08/2025 10:47 AM EDT [facility] Chol/HDL Ratio 2.7 0.0 - 4.4 LAB CHEMISTRY METHOD 03/08/2025 10:47 AM T [facility] Blood Venous blood specimen / Unknown Venipuncture / Unknown 03/08/2025 8:17 AM EDT 03/08/2025 8:17 AM EDT Catie Baca MD LAB BLOOD ORDERABL ES Final Result [facility] [address] [place] [address], [place] [phone] * CBC auto differential (03/08/2025 8:17 AM EDT) WBC 6.1 4.8 - 10.8 K/mcL LAB HEMETOLOGY METHOD 03/08/2025 10:08 AM [facility] RBC 4.40 3.80 - 4.80 M/mcL LAB HEMETOLOGY METHOD 03/08/2025 10:08 AM [facility] Hemoglobin 13.2 11.5 - 16.0 g/dL LAB HEMETOLOGY METHOD 03/08/2025 10:08 AM [facility] Hematocrit 39.0 35.0 - 47.0 % LAB HEMETOLOGY METHOD 03/08/2025 10:08 AM [facility] MCV 89.2 79.0 - 98.0 FL LAB HEMETOLOGY METHOD 03/08/2025 10:08 AM [facility] MCH 30.2 27.0 - 32.0 pcg LAB HEMETOLOGY METHOD 03/08/2025 10:08 AM [facility] MCHC 33.8 32.0 - 37.0 g/dL LAB HEMETOLOGY METHOD 03/08/2025 10:08 AM [facility] RDW 12.4 11.0 - 15.0 % LAB HEMETOLOGY METHOD 03/08/2025 10:08 AM [facility] Platelets 241 130 - 400 K/mcL LAB HEMETOLOGY METHOD 03/08/2025 10:08 AM [facility] MPV 10.3 7.0 - 11.0 FL LAB HEMETOLOGY METHOD 03/08/2025 10:08 AM [facility] NRBC 0.0 <1.0 % LAB HEMETOLOGY METHOD 03/08/2025 10:08 AM [facility] NRBC Absolute 0.00 <0.10 K/mcL LAB HEMETOLOGY METHOD 03/08/2025 10:08 AM [facility] Neutrophils Relative 63.8 % LAB HEMETOLOGY METHOD 03/08/2025 10:08 AM [facility] Lymphocytes Relative 26.3 % LAB HEMETOLOGY METHOD 03/08/2025 10:08 AM [facility] Monocytes Relative 8.1 % LAB HEMETOLOGY METHOD 03/08/2025 10:08 AM [facility] Eosinophils Relative 1.0 % LAB HEMETOLOGY METHOD 03/08/2025 10:08 AM [facility] Basophils Relative 0.5 % LAB HEMETOLOGY METHOD 03/08/2025 10:08 AM [facility] Immature Granulocytes Relative 0.3 % LAB HEMETOLOGY METHOD 03/08/2025 10:08 AM [facility] Neutrophils Absolute 3.88 1.50 - 7.00 K/mcL LAB HEMETOLOGY METHOD 03/08/2025 10:08 AM [facility] Lymphocytes Absolute 1.60 1.00 - 5.00 K/mcL LAB HEMETOLOGY METHOD 03/08/2025 10:08 AM [facility] Monocytes Absolute 0.49 0.20 - 1.00 K/mcL LAB HEMETOLOGY METHOD 03/08/2025 10:08 AM [facility] Eosinophils Absolute 0.06 0.00 - 0.50 K/mcL LAB HEMETOLOGY METHOD 03/08/2025 10:08 AM [facility] Basophils Absolute 0.03 0.00 - 0.20 K/mcL LAB HEMETOLOGY METHOD 03/08/2025 10:08 AM [facility] Immature Granulocytes Absolute 0.02 0.00 - 0.03 K/mcL LAB HEMETOLOGY METHOD 03/08/2025 10:08 AM [facility] Blood Venous blood specimen / Unknown Venipuncture / Unknown 03/08/2025 8:17 AM EDT 03/08/2025 8:17 AM EDT us Catie Baca MD LAB BLOOD ORDERABL ES Final Result [facility] [address] [place] [address], [place] [phone] * Comprehensive metabolic panel (03/08/2025 8:17 AM EDT) Pathologist [facility] Sodium 138 133 - 145 mmol/L LAB CHEMISTRY METHOD 03/08/2025 10:43 AM [facility] Potassium 4.0 3.5 - 5.5 mmol/L LAB CHEMISTRY METHOD 03/08/2025 10:43 AM [facility] Chloride 107 96 - 110 mmol/L LAB CHEMISTRY METHOD 03/08/2025 10:43 AM [facility] CO2 27 21 - 32 mmol/L LAB CHEMISTRY METHOD 03/08/2025 10:43 AM [facility] Anion Gap 4 3 - 11 LAB CHEMISTRY METHOD 03/08/2025 10:43 AM [facility] Glucose 86 70 - 100 mg/dL LAB CHEMISTRY METHOD 03/08/2025 10:43 AM [facility] BUN 8 5 - 25 mg/dL LAB CHEMISTRY METHOD 03/08/2025 10:43 AM [facility] Creatinine 0.69 0.50 - 1.10 mg/dL LAB CHEMISTRY METHOD 03/08/2025 10:43 AM [facility] eGFR 120 >=60 mL/min/1. 73m2 LAB CHEMISTRY METHOD 03/08/2025 10:43 AM [facility] Comment:Calculation based on the Chronic Kidney Disease Epidemiology Collaboration (CKD-EPI) equation refit without adjustment for race. BUN/Creatinine Ratio 11.6 LAB CHEMISTRY METHOD 03/08/2025 10:43 AM [facility] Calcium 9.2 8.5 - 10.5 mg/dL LAB CHEMISTRY METHOD 03/08/2025 10:43 AM EDT [facility] AST (SGOT) 18 10 - 42 unit/L LAB CHEMISTRY METHOD 03/08/2025 10:43 AM [facility] ALT (SGPT) 19 10 - 60 unit/L LAB CHEMISTRY METHOD 03/08/2025 10:43 AM EDT [facility] Alkaline Phosphatase 68 42 - 121 unit/L LAB CHEMISTRY METHOD 03/08/2025 10:43 AM [facility] Total Protein 7.1 6.0 - 8.0 g/dL LAB CHEMISTRY METHOD 03/08/2025 10:43 AM [facility] Albumin 4.1 3.2 - 5.0 g/dL LAB CHEMISTRY METHOD 03/08/2025 10:43 AM [facility] Total Bilirubin 0.7 0.0 - 1.4 mg/dL LAB CHEMISTRY METHOD 03/08/2025 10:43 AM [facility] Blood Venous blood specimen / Unknown Venipuncture / Unknown 03/08/2025 8:17 AM EDT 03/08/2025 8:17 AM EDT Catie Baca MD LAB BLOOD ORDERABL ES Final Result [facility] [address] [place] [address], * Depression Screening (02/17/2024) HM Depression Screening ABSTRACTED Historical Provider HEALTH MAINTENANCE Final Result * HIV Screening (02/24/2022) HIV Screening ABSTRACTED Historical Provider HEALTH MAINTENANCE Final Result * Pap Smear (09/16/2021) Pap smear no interpretation , abstracted us Historical Provider HEALTH MAINTENANCE Final Result from Last 3 Months or Most Recently Relevant to Health Maintenance Insurance [facility] [id number] Care Teams Soa Integration Developer Relationship Specialty Start Date End Date Catie Baca MD [address] [place] [phone] PCP - General Internal Medicine 02/03/22
== END 2025-03-27 15:47 | disposition home or self-care (01) ==
LOC: HO.HWS 14:23
PROVIDERS: Visit Provider Advanced Practice Midwife
DX: R10.2 Pelvic and perineal pain (principal); Z32.02 Encounter for pregnancy test, result negative
CPT/HCPCS: 99213

== ENCOUNTER → 2025-03-27 14:23 | Outpatient (BNVA) | payer OTHER, SELFPAY | PROVIDERS: Visit Provider Advanced Practice Midwife | DX: R10.2 Pelvic and perineal pain (principal) | CPT/HCPCS: 81003; 81025; 99212 ==

== ENCOUNTER 2025-04-03 12:59 | Outpatient (AMB) | payer OTHER, SELFPAY ==
--- OUTSIDE RECORDS SUMMARY | 2025-04-02 15:30 | XMS_ITS | Encounter Summary ---
Author Organization [facility] Address [address] [place] [address] Care Team Providers Care Pharmacy Grad Intern Name Role Phone Catie Baca MD Primary Care Prov ider Reason for Referral * Imaging (Routine) - Pending Review Specialty Diagnoses / Procedures Referred By Contac t Referred To Contact Radiology Diagnoses Hematuria, unspecified type Procedures US Retroperitoneal Complete Saqib Evans MD [address] [place] [address] Phone: tel: fax: [address] Phone: tel: Referral ID Status Reason Start Date Expiration Date V isits Requested Visits Authorized [id number] Pending Review 04/02/2025 04/02/2026 1 1 Reason for Visit * Reason Comments Labs Only Blood in Urine Encounter Details Date Type Department Care Team (Late st Contact Info) Description 04/02/2025 3:30 PM EDT Office Visit Adult Medicine [address] [phone] Saqib Evans MD [address] [place] [address] Hematuria, unspecified type (Primary Dx) Social History Tobacco Use Types [...] Date Recorded What is your living situation? Unrecognized valu e 05/11/2024 Comments No Sex and Gender Information Value Date Recorded Sex Assigned at Not on file Legal Sex Female 8:53 PM EST Gender Identity Not on file Sexual Orientation Not on file documented as of this encounter Last Filed Vital Signs Vital Sign Reading Time Taken Comments Blood Pressure 106/77 04/02/2025 3:21 PM EDT Pulse 78 04/02/2025 3:21 PM EDT Temperature 36.8 C (98.2 F) 04/02/2025 3:21 PM EDT Respiratory Rate 15 04/02/2025 3:21 PM EDT Oxygen Saturation 97% 04/02/2025 3:21 PM EDT Inhaled Oxygen Concentration - - Weight 71.8 kg (158 lb 3.2 oz) 04/02/2025 3:21 P M EDT Height 157.5 cm (5' 2 ) 04/02/2025 3:21 PM EDT Body Mass Index 28.94 04/02/2025 3:21 PM EDT documented in this encounter Ordered Prescriptions Prescription Sig Dispense Quantity Refills Last Filled Start Date End Date fluticasone propionate (FLONASE) 50 mcg/actuation nasal spray Administer 2 sprays into each nostril 1 (one) time each day. Shake gently. Before first use, prime pump. After use, clean tip and replace cap. 16 g 1 04/02/2025 documented in this encounter Progress Notes * Shama Villeda MA - 04/02/2025 3:30 PM EDT Visit Vitals BP 106/77 Pulse 78 Temp 36.8 ??C (98.2 ??F) (Temporal) Resp 15 Ht 1.575 m (62 ) Wt 71.8 kg (158 lb 3.2 oz) SpO2 97% BMI 28.94 kg/m?? OB Status Injection Smoking Status Never BSA 1.73 m?? * Saqib Evans MD - 04/02/2025 3:30 PM EDT SUBJECTIVE: Kait Arteaga is a 29 y.o. female who presents today for Chief Complaint Patient presents with Labs Only Blood in Urine HPI: Patient presenting for evaluation. She has been following at [facility]. She states she underwent a Pap smear a few weeks ago and started having pelvic pain. Urine dipstick showed 2+ blood. Complains of lower abdominal discomfort as well. [facility] has ordered a pelvic and transvaginal ultrasound which she is scheduled on April 12. test was negative. She is on Depo injection an d has not received menstrual period for many months. Current Meds: Current Medications[1] Allergies: Allergies[2] Immunizations: Immunization History Administered Date(s) Administered DTP 01/20/1995, 03/25/1995, 05/25/1995 DTaP (Infanrix) 6wks to less than 7yo 07/26/1996, 12/11/1999 CFhN-TDG-WMB (Pentacel) 2mo to less than 5yo 01/20/1995, 03/25/1995, 05/25/1995, 11/16/1995 HPV, Quadrivalent 02/25/2007, 03/23/2008, 07/24/2008 Hepatitis A Adult (Havrix; Vaqta) 19yo and older 11/06/2015 Hepatitis A Pediatric (Havrix; Vaqta) 12mo to less than 19yo 09/03/2014 Hepatitis B Pediatric (Engerix B; Recombivax HB) to less than 20 yo 1994, 01/20/1995, 11/16/1995 IPV Inactivated polio (Ipol) 6wks and older 01/20/1995, 03/25/1995, 05/25/1995, 12/11/1999 Influenza Quadravalent, MDCK, 0.5ml, preservative free (Flucelvax) 6mo and older 09/12/2020 Influenza Quadravalent, MDCK, 0.5ml, with preservative (Flucelvax) 6mo and older 03/11/2017, 04/20/2018 Influenza, Unspecified 07/05/2022 MMR, measles mumps and rubella Live (Priorix; M-M-R II) 12mo and older 11/16/1995, 11/18/1998 Meningococcal MCV4P 02/25/2007, 11/06/2015 XtremIO SARS-CoV-2 COVID-19, mRNA, LNP-S, preservative free 05/30/2021, 06/22/2021 Td Tetanus diptheria (Tdvax) 7yo and older 02/18/2006, 02/21/2016 Tdap Tetanus diptheria acellular pertussis (Boostrix; Adacel) 7yo and older 09/15/2017 Varicella live (Varivax) 12mo and older 02/12/1999, 03/23/2008 Active Problems: Problem List[3] HISTORY: Medical History[4] Surgical History[5] Family History[6] Social History Socioeconomic History Marital status: Single Spouse name: Not on file Number of children: Not on file Years of education: Not on file Highest education level: Not on file Occupational History Not on file Tobacco Use Smoking status: Never Smokeless tobacco: Never Substance and Sexual Activity Alcohol use: Not Currently Drug use: No Sexual activity: Not on file Comment: one, feels safe Other Topics Concern Not on file Social History Narrative Has 4 1/2 yo daughter ROS: GENERAL: Negative for malaise, significant weight loss and fever RESPIRATORY: No cough, wheezing or shortness of breath CARDIOVASCULAR: Negative for chest pain, leg swelling and palpitations GI: Negative for abdominal discomfort, changes in bowel habits, blood in stool or black stools VITAL SIGNS Vitals: 04/02/25 1521 BP: 106/77 Pulse: 78 Resp: 15 Temp: 36.8 ??C (98.2 ??F) TempSrc: Temporal SpO2: 97% Weight: 71.8 kg (158 lb 3.2 oz) Height: 1.575 m (62 ) Body mass index is 28.94 kg/m??. Body surface area is 1.73 meters squared. PHYSICAL EXAM: Blood pressure 106/77, pulse 78, temperature 36.8 ??C (98.2 ??F), temperature source Temporal, resp. rate 15, height 1.575 m (62 ), weight 71.8 kg (158 lb 3.2 oz), SpO2 97%. Body mass index is 28.94 kg/m??. Plan is deferred until next visit APPEARANCE: Alert and in no acute distress ABDOMEN: Bowel sounds normoactive, no bruits and soft, non-tender, without organomegaly or palpablemasses ASSESSMENT/PLAN: Kait was seen today for labs only and blood in urine. Diagnoses and all orders for this visit: Hematuria, unspecified type (Primary) - POC Urine Non-Auto W/O Micro - Culture urine - Urinalysis with reflex microscopic and culture; Future - US Retroperitoneal Complete; Future - Basic metabolic panel; Future - Microalbumin creatinine urine ratio; Future Other orders - fluticasone propionate (FLONASE) 50 mcg/actuation nasal spray; Administer 2 sprays into each nostril 1 (one) time each day. Shake gently. Before first use, prime pump. After use, clean tip and replace cap. Plan Patient will hematuria, obtain urine micro. Dipstick positive in the office today as well for bloodonly. Obtain retroperitoneal ultrasound. Advised to undergo the transvaginal and pelvic ultrasound earlier. May need CT imaging as well. Will follow-up after the ultrasound. Check BMP to assess of renal function as well. Follow up if symptoms worsen or fail to improve, for Next scheduled follow-up. Orders Placed This Encounter Procedures Culture urine US Retroperitoneal Complete Urinalysis with reflex microscopic and culture Basic metabolic panel Microalbumin creatinine urine ratio POC Urine Non-Auto W/O Micro Saqib Evans MD [1] Current Outpatient Medications: cetirizine (ZyrTEC) 10 mg tablet, Take 1 tablet (10 mg total) by mouth 1 (one) time each day., Disp: , Rfl: citalopram (CeleXA) 20 mg tablet, Take 1 tablet (20 mg total) by mouth 1 (one) time each day., Disp: 30 each, Rfl: 5 EPINEPHrine (EpiPen 2-Perry) 0.3 mg/0.3 mL injection, Inject 1 Dose as directed Once., Disp: , Rfl: fluticasone propionate (FLONASE) 50 mcg/actuation nasal spray, Administer 2 sprays into each nostril 1 (one) time each day. Shake gently. Before first use, prime pump. After use, clean tip and replace cap., Disp: 16 g, Rfl: 1 medroxyPROGESTERone 150 mg/mL injection, Inject 150 mg into the muscle Every 3 Months., Disp: , Rfl: pantoprazole (PROTONIX) 20 mg EC tablet, Take 1 tablet (20 mg total) by mouth 1 (one) time each daybefore breakfast. Do not crush, chew, or split., Disp: , Rfl: valACYclovir (VALTREX) 500 mg tablet, PLEASE SEE ATTACHED FOR DETAILED DIRECTIONS, Disp: , Rfl: Current Facility-Administered Medications: cyanocobalamin (VITAMIN B-12) injection 1,000 mcg, 1,000 mcg, intramuscular, q30 days, Catie Baca MD, 1,000 mcg at 03/07/25 0806 [2] Allergies Allergen Reactions Mold Other Pesticides and roaches [3] Patient Active Problem List Diagnosis Anxiety and depression Carpal tunnel syndrome, right Chronic seasonal allergic rhinitis Leukopenia Vitamin B12 deficiency Vitamin D deficiency Chronic ear pain, bilateral [4] Past Medical History: Diagnosis Date Anxiety and depression 03/21/2018 DX:Anxiety and depression Breast lump 07/12/2018 Benign-appearing solid mass noted on breast ultrasound, follow-up six-month ultrasound due in December 2018; six-month follow-up ultrasound showed stability. Pending another six-month follow-up ultrasound and then yearly for the next 2 years. 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 Overweight 10/05/2017 DX:Overweight Paresthesia and pain of both upper extremities 09/12/2020 Cervical neck -ray normal 09/2020 [5] Past Surgical History: Procedure Laterality Date OTHER SURGICAL HISTORY PROCEDURE: DENIES PREVIOUS SURGERY [6] Family History Problem Relation Name Age of Onset Suicide Attempts Father Asthma Brother diet controlled DM Diabetes Other 2nd cousin documented in this encounter Plan of Treatment Upcoming Encounters Date Type Department Care Team (Late st Contact Info) Description 04/04/2025 11:30 AM EDT Clinical Support Adult Medicine [address] [phone] 03/08/2026 2:00 PM EDT Office Visit Adult Medicine [address] [phone] Catie Baca MD [address] [place] [address] documented as of this encounter Procedures Procedure Name Priority Date/Time Associated Diagnosis Comments POC URINE NON-AUTO W/O MICRO Routine 04/02/2025 4:57 PM EDT Hematuria, unspecified type CULTURE URINE Routine 04/02/2025 3:34 PM EDT Hematuria, unspecified type documented in this encounter Results * US Retroperitoneal Complete (04/03/2025 10:53 AM EDT) Anatomical Region Laterality Modality Body Radiographic Concha ging 04/03/2025 12:0 9 PM EDT Impressions 04/03/2025 12:12 PM EDT Minimal bilateral pelviectasis. No bladder abnormality identified. -------- FINAL REPORT -------- Dictated By: Gemini Bravo Dictated Date: 04/03/2025 12:09 ET Assigned Physician: Gemini Bravo Reviewed and Electronically Signed By: Gemini Bravo Signed Date: 04/03/2025 12:12 ET Workstation ID: [id number] Transcribed By: Self Edit Transcribed Date: 04/03/2025 12:09 ET Narrative 04/03/2025 12:12 PM EDT EXAM: Ultrasound retroperitoneal HISTORY: Painless hematuria. COMPARISON: Abdominal ultrasound 03/31/2017 FINDINGS: Exam limited by patient body habitus and prominent bowel gas on the left. Kidneys are within normal limits for size measuring 10.3 cm on the right and 10.6 cm on the left in craniocaudad extent. Cortical thickness and echogenicity appear within normal limits. Minimal dilatation of the renal pelves. No focal lesion or shadowing stone in either kidney. Prevoid bladder volume measures 272 cc and post void measures 6 cc. No evidence of an intraluminal mass or stone. No bladder wall thickening. Both ureteral jets are visualized. Procedure Note Gemini Bravo MD - 04/03/2025 EXAM: Ultrasound retroperitoneal HISTORY: Painless hematuria. COMPARISON: Abdominal ultrasound 03/31/2017 FINDINGS: Exam limited by patient body habitus and prominent bowel gas on theleft. Kidneys are within normal limits for size measuring 10.3 cm on the rightand 10.6 cm on the left in craniocaudad extent. Cortical thickness andechogenicity appear within normal limits. Minimal dilatation of the renalpelves. No focal lesion or shadowing stone in either kidney. Prevoid bladder volume measures 272 cc and post void measures 6 cc. Noevidence of an intraluminal mass or stone. No bladder wall thickening.Both ureteral jets are visualized. IMPRESSION: Minimal bilateral pelviectasis. No bladder abnormality identified. -------- FINAL REPORT -------- Dictated By: Gemini Bravo Dictated Date: 04/03/2025 12:09 ET Assigned Physician: Gemini Bravo Reviewed and Electronically Signed By: Gemini Bravo Signed Date: 04/03/2025 12:12 ET Workstation ID: [id number] Transcribed By: Self Edit Transcribed Date: 04/03/2025 12:09 ET Saqib Evans MD IMG US PROCEDURES Linette l Result * (ABNORMAL) POC Urine Non-Auto W/O Micro (04/02/2025 4:57 PM EDT) Urine Urine specimen obtained by clean catch procedure / Unknown 04/02/2025 4:57 PM EDT Saqib Evans MD POINT OF CARE TEST ENT ER/EDIT ORDERABLES Final Result * Microalbumin creatinine urine ratio (04/02/2025 4:21 PM EDT) Creatinine, Urine 137.0 mg/dL LAB CHEMISTRY METHOD 04/02/2025 7:51 PM EDT [facility] Microalb, Ur 5.1 0.0 - 29.0 mg/L LAB CHEMISTRY METHOD 04/02/2025 7:51 PM EDT [facility] Microalb/Creat Ratio 4 <30 mg/g creat LAB CHEMISTRY METHOD 04/02/2025 7:51 PM [facility] Urine Urine specimen obtained by clean catch procedure / Unknown Non-blood Collection / Unknown 04/02/2025 4:21 PM EDT 04/02/2025 4:21 PM EDT us Saqib Evans MD LAB URINE ORDERABLES F inal Result [facility] [address] [place] [address], [place] [phone] * Basic metabolic panel (04/02/2025 4:21 PM EDT) Sodium 139 133 - 145 mmol/L LAB CHEMISTRY METHOD 04/02/2025 7:05 PM [facility] Potassium 3.6 3.5 - 5.5 mmol/L LAB CHEMISTRY METHOD 04/02/2025 7:05 PM [facility] Chloride 106 96 - 110 mmol/L LAB CHEMISTRY METHOD 04/02/2025 7:05 PM [facility] CO2 27 21 - 32 mmol/L LAB CHEMISTRY METHOD 04/02/2025 7:05 PM [facility] Anion Gap 6 3 - 11 LAB CHEMISTRY METHOD 04/02/2025 7:05 PM [facility] Glucose 87 70 - 100 mg/dL LAB CHEMISTRY METHOD 04/02/2025 7:05 PM [facility] BUN 11 5 - 25 mg/dL LAB CHEMISTRY METHOD 04/02/2025 7:05 PM [facility] Creatinine 0.71 0.50 - 1.10 mg/dL LAB CHEMISTRY METHOD 04/02/2025 7:05 PM [facility] eGFR 117 >=60 mL/min/1. 73m2 LAB CHEMISTRY METHOD 04/02/2025 7:05 PM [facility] Comment:Calculation based on the Chronic Kidney Disease Epidemiology Collaboration (CKD-EPI) equation refit without adjustment for race. BUN/Creatinine Ratio 15.5 LAB CHEMISTRY METHOD 04/02/2025 7:05 PM EDT [facility] Calcium 9.0 8.5 - 10.5 mg/dL LAB CHEMISTRY METHOD 04/02/2025 7:05 PM EDT [facility] Blood Venous blood specimen / Unknown Venipuncture / Unknown 04/02/2025 4:21 PM EDT 04/02/2025 4:21 PM EDT Saqib Evans MD LAB BLOOD ORDERABLES F inal Result [facility] [address] [place] [address], [place] [phone] * Culture urine (04/02/2025 3:34 PM EDT) Culture, Urine No growth 04/03/2025 1:49 PM EDT [facility] Urine Urine specimen obtained by clean catch procedure / Unknown Non-blood Collection / Unknown 04/02/2025 3:34 PM EDT 04/02/2025 3:34 PM EDT Saqib Evans MD LAB MICROBIOLOGY - GEN ERAL ORDERABLES Final Result Performing Organization Address [facility]/State/ZIP Co de Phone Number [facility] [address] [place] [address], [place] [phone] documented in this encounter Visit Diagnoses Diagnosis Hematuria, unspecified type- Primary Hematuria, unspecified type documented in this encounter Discontinued Medications Medication Sig Discontinue Reason Start Date End Da te fluticasone propionate (FLONASE) 50 mcg/actuation nasal spray 2 Sprays by Nasal route daily. Two sprays in each nostril daily for a week. Reorder 09/24/2021 04/02/2025 documented as of this encounter Additional Health Concerns Assessment Noted Time PHQ-9 Depression Total Score: 0 03/07/20 25 7:37 AM EDT documented as of this encounter Care Teams Pharmacy Grad Intern Relationship Specialty Start Date End Date Catie Baca MD [address] [place] [phone] PCP - General Internal Medicine 02/03/22 documented as of this encounter
--- OUTSIDE RECORDS SUMMARY | 2025-04-03 10:30 | XMS_ITS | Encounter Summary ---
Author Organization [facility] Address [address] [place] [address] Care Team Providers Care Payroll Human Resources Assistant Name Role Phone Catie Baca MD Primary Care Prov ider Reason for Referral * Imaging (Routine) - Pending Review Specialty Diagnoses / Procedures Referred By Contac t Referred To Contact Radiology Diagnoses Hematuria, unspecified type Procedures US Retroperitoneal Complete Saqib Evans MD [address] [place] [address] Phone: tel: fax: [address] Phone: tel: Referral ID Status Reason Start Date Expiration Date V isits Requested Visits Authorized [id number] Pending Review 04/02/2025 04/02/2026 1 1 Reason for Visit * Imaging (Routine) - Pending Review Specialty Diagnoses / Procedures Referred By Contac t Referred To Contact Radiology Diagnoses Hematuria, unspecified type Procedures US Retroperitoneal Complete Saqib Evans MD [address] [place] [address] Phone: tel: fax: [address] Phone: tel: Referral ID Status Reason Start Date Expiration Date V isits Requested Visits Authorized [id number] Pending Review 04/02/2025 04/02/2026 1 1 Encounter Details Date Type Department Care Team (Latest Contact Info) Description 04/03/2025 10:30 AM EDT Hospital Encounter Ultrasound - [facility] [address] [place] [phone] Hematuria, unspecified type Social History Tobacco Use Types Packs/Day Years [...] as of this encounter Plan of Treatment Upcoming Encounters Date Type Department Care Team (Late st Contact Info) Description 04/04/2025 11:30 AM EDT Clinical Support Adult [address] [phone] 03/08/2026 2:00 PM EDT Office Visit Adult [address] [phone] Catie Baca MD [address] [place] [address] documented as of this encounter Procedures Procedure Name Priority Date/Time Associated Diagnosis Comments US RETROPERITONEAL COMPLETE Routine 04/03/2025 10:53 AM EDT Hematuria, unspecified type documented in this [...] Signed Date: 04/03/2025 12:12 ET Workstation ID: [id number] Transcribed By: Self Edit Transcribed Date: 04/03/2025 [...] Signed Date: 04/03/2025 12:12 ET Workstation ID: [id number] Transcribed By: Self Edit Transcribed Date: 04/03/2025 12:09 ET us Saqib Evans MD IMG US PROCEDURES Linette l Result documented in this encounter Visit Diagnoses Diagnosis Hematuria, unspecified type documented in this encounter Additional Health Concerns Assessment Noted Time PHQ-9 Depression Total Score: 0 03/07/20 25 7:37 AM EDT documented as of this encounter Care Teams Payroll Human Resources Assistant Relationship Specialty Start Date End Date Catie Baca MD [address] [place] [phone] PCP - General Internal Medicine 02/03/22 documented as of this encounter
[2025-04-03 13:02] VITALS: BMI 29.1
--- NOTE | 2025-04-03 13:02 | AM.OFFVISNUR ---
Vital Signs 04/03/25 13:02 Height 5 ft 2 in Weight 159 lb BMI 29.1 Intake Visit Reasons: depo Allergies mold Allergy (Verified 03/27/25 14:34) Unknown roaches Allergy (Intermediate, Uncoded 03/27/25 14:34) Hives Nursing Note Kait is here today for her scheduled Depo-Provera inj. She deniesw any problems or new concerns with the DEPO-Provera. Follow up in 12 weeks, for next inj. [has been scheduled]. Office Procedures Depo Questionnaire If YES to any of the following questions, please consult a provider. Date of last injection: 01/09/25 Date of last gynecology exam: 01/18/25 Menstrual pattern since last injection has been: Not Applicable Irregular bleeding?: No Breast lumps or other breast changes?: No Changes in weight or appetite?: Yes (slight weight gain that pt does not feel related to Depo-Provera.) Depression or changes in mood?: No Abnormal hair growth or loss?: No Skin problems (rash, acne, discoloration)?: No Pain at the injection site?: No Headaches?: No Nervousness?: No Abdominal pain or cramping?: No Dizziness or nausea?: No Fatigue or weakness?: No Decrease in sexual drive?: No Chest pain or shortness of breath?: No Swelling in arms or legs?: No Form completed by?: Merline Hunter LPN Office Meds Depo-Provera 150 mg/mL intramuscular syringe Performing Provider: Nahomi Hopper CNM Performing Location: [facility] Administered by: Nelly Hunter LPN on 04/03/25 13:10 Dose Route Admin Location Dispensed Lot Number Expiration Date [facility] [employer] 150 mg IM left deltoid 1 mL [id number] 07/04/27 03930-073-81 [facility] Total Dispensed Waste 1 mL 0 % Assessment & Plan Assessment & Plan Orders: Orders AMB Medroxyprogesterone Injection Patient Supplied Today Z30.42 - Encounter for surveillance of injectable contraceptive Coding Level of Care Code Established Pt Est Pt Level 1 (15324) Patient Type Established History Problem Focused Exam Problem Focused Medical Decision Making Straight Forward Time Spent (min) 20
--- OUTSIDE RECORDS SUMMARY | 2025-04-03 14:07 | XMS_ITS | Clinical Summary ---
Author Organization [facility] Address [address] [place] [address] Care Team Providers Care Ticket Taker Name Role Phone No, Pcp Primary Care [...] on file Legal Sex Female 11:07 AM [facility] Gender Identity Not on file Sexual Orientation [...] 1-do se 75+ series) 2069 Insurance [facility] Care Teams Ticket Taker Relationship Specialty Start Date End Date No, Pcp PCP - General 01/26/22
--- OUTSIDE RECORDS SUMMARY | 2025-04-03 14:07 | XMS_ITS | Encounter Summary ---
Author Organization [facility] Address [address] [place] [address] Care Team Providers Care Imcu Nurse Name Role Phone Catie Baca MD Primary Care Prov ider Encounter Details Date Type Department Care Team (Late st Contact Info) Description 04/03/2025 Results Follow-Up Adult Medicine [facility] [address] [place], [place] [phone] Saqib Evans MD [address] [place], [place] Social History Tobacco Use Types Packs/Day Years [...] 11:30 AM EDT Clinical Support Adult Medicine [address] [phone] 03/08/2026 2:00 PM EDT Office Visit Adult Medicine [address] [phone] Catie Baca MD [address] [place] [address] documented as of this encounter Visit Diagnoses Not on filedocumented in this encounter Additional Health Concerns Assessment Noted Time PHQ-9 Depression Total Score: 0 03/07/20 25 7:37 AM EDT documented as of this encounter Care Teams Imcu Nurse Relationship Specialty Start Date End Date Catie Baca MD [address] [place] [phone] PCP - General Internal Medicine 02/03/22 documented as of this encounter
--- OUTSIDE RECORDS SUMMARY | 2025-04-03 14:07 | XMS_ITS | Clinical Summary ---
Author Organization [facility] [address] [place] [address] Address [address] [place] [address] Phone Care Team Providers Care English Adjunct Faculty Name Role Phone Catie Baca MD Primary Care Prov ider Allergies Active Allergy Reactions Criticality Noted Date Comments Mold 08/27/2023 Other 08/27/2023 Pesticides and roaches Medications cetirizine (ZyrTEC) 10 mg tablet Take 1 tablet (10 mg total) by mouth 1 (one) time each day. 4 Active EPINEPHrine (EpiPen 2-Perry) 0.3 mg/0.3 mL injection Inject 1 Dose as directed Once. 4 Active valACYclovir (VALTREX) 500 mg tablet PLEASE [...] Do not crush, chew, or split. Active fluticasone propionate (FLONASE) 50 mcg/actuation nasal spray Administer 2 sprays into each nostril 1 (one) time each day. Shake gently. Before first use, prime pump. After use, clean tip and replace cap. 16 g 1 5 Active cyanocobalamin (VITAMIN B-12) 1,000 mcg/mL injection Inject 1 mL into the muscle every 30 days. 3 03/07/20 25 Discontinu ed(Lloyd courtney order) fluticasone propionate (FLONASE) 50 mcg/actuation nasal spray 2 Sprays by Nasal route daily. Two sprays in each nostril daily for a week. 2 04/02/20 25 Discontinu ed(Reorder ) Hospital, Clinic, or Other Facility Administered Medication [...] Encounters Date Type Department Care Team Description 04/03/2025 10:30 AM EDT Hospital Encounter Ultrasound - [address] [phone] Hematuria, unspecified type 04/03/2025 Results Follow-Up [address] [phone] Saqib Evans MD 04/02/2025 3:30 PM EDT Office Visit [address] [phone] Saqib Evans MD Hematuria, unspecified type (Primary Dx) 03/07/2025 7:30 AM EDT Office Visit [address] [phone] Catie Amezquita MD Adult general medical examination (Primary Dx); Need for hepatitis C screening test; Encounter for lipid screening for cardiovascular disease; Eczema, unspecified type; Vitamin B12 deficiency 01/03/2025 3:45 PM EDT Clinical Support [address] [phone] Vitamin B12 deficiency (Primary Dx) from Last 3 Months Immunizations Immunization Administration Dates Next Due DTP 05/25/1995,03/25/1995,01/20/1995 DTaP (Infanrix) 6wks to less than 7yo 12/11/1999 ,07/26/1996 [id number] (Pentacel) 2mo to less than 5yo 11/16/1995,05/25/1995,03/25/1995,01/20 [...] Mass Index 28.94 04/02/2025 3:21 PM EDT Plan of Treatment Upcoming Encounters Date Type Department Care Team (Late st Contact Info) Description 04/04/2025 11:30 AM EDT Clinical Support Adult Medicine [address] [phone] 03/08/2026 2:00 PM EDT Office Visit Adult Medicine [address] [phone] Catie Baca MD [address] [place] [address] Health Maintenance Due Date Last Done Comments [...] 04/03/2025 10:53 AM EDT Hematuria, unspecified type POC URINE NON-AUTO W/O MICRO Routine 04/02/2025 4:57 PM EDT Hematuria, unspecified type MARTINEZ URINE CULTURE TUBE Routine 04/02/2025 4:21 PM EDT Hematuria, unspecified type URINALYSIS WITH REFLEX MICROSCOPIC AND CULTURE Routine 04/02/2025 4:21 PM EDT Hematuria, unspecified type URINALYSIS WITH REFLEX MICROSCOPIC AND CULTURE Routine 04/02/2025 4:21 PM EDT Hematuria, unspecified type BASIC METABOLIC PANEL Routine 04/02/2025 4:21 PM EDT Hematuria, unspecified type MICROALBUMIN CREATININE URINE RATIO Routine 04/02/2025 4:21 PM EDT Hematuria, unspecified type CULTURE URINE Routine 04/02/2025 4:21 PM EDT Hematuria, unspecified type CULTURE URINE Routine 04/02/2025 3:34 PM EDT Hematuria, unspecified type CBC WITH AUTO DIFFERENTIAL Routine 03/08/2025 8:17 [...] Recently Relevant to Health Maintenance Results * US Retroperitoneal Complete (04/03/2025 10:53 [...] Signed Date: 04/03/2025 12:12 ET Workstation ID: [id number] Transcribed By: Self Edit Transcribed Date: 04/03/2025 [...] Signed Date: 04/03/2025 12:12 ET Workstation ID: [id number] Transcribed By: Self Edit Transcribed Date: 04/03/2025 12:09 ET Saqib Evans MD IMG US PROCEDURES Linette l Result * (ABNORMAL) POC Urine Non-Auto W/O Micro (04/02/2025 4:57 PM EDT) Urine Urine specimen obtained by clean catch procedure / Unknown 04/02/2025 4:57 PM EDT Saqib Evans MD POINT OF CARE TEST ENT ER/EDIT ORDERABLES Final Result * (ABNORMAL) Urinalysis with reflex microscopic and culture (04/02/2025 4:21 PM EDT) Specific [place] Urine 1.018 1.003 - 1.030 LAB URINALYSIS - AUTOMATED METHOD 04/02/2025 7:02 PM EDT [facility] pH, Urine 6.5 5.0 - 8.0 pH LAB URINALYSIS - AUTOMATED METHOD 04/02/2025 7:02 PM EDT [facility] Leukocytes, Urine Trace(A) Negative LAB URINALYSIS - AUTOMATED METHOD 04/02/2025 7:02 PM [facility] Nitrite, Urine Negative Negative LAB URINALYSIS - AUTOMATED METHOD 04/02/2025 7:02 PM [facility] Protein, Urine Negative <=Trace mg/dL LAB URINALYSIS - AUTOMATED METHOD 04/02/2025 7:02 PM [facility] Glucose, Urine Negative Negative mg/dL LAB URINALYSIS - AUTOMATED METHOD 04/02/2025 7:02 PM [facility] Ketones, Urine Negative Negative mg/dL LAB URINALYSIS - AUTOMATED METHOD 04/02/2025 7:02 PM [facility] Urobilinogen, Urine 0.2 0.2 - 1.0 mg/dL LAB URINALYSIS - AUTOMATED METHOD 04/02/2025 7:02 PM [facility] Bilirubin, Urine Negative Negative LAB URINALYSIS - AUTOMATED METHOD 04/02/2025 7:02 PM [facility] Blood, Urine Small(A) Negative LAB URINALYSIS - AUTOMATED METHOD 04/02/2025 7:02 PM [facility] RBC, Urine 9.4(H) 0 - 4 /HPF LAB URINALYSIS - AUTOMATED METHOD 04/02/2025 7:02 PM [facility] WBC, Urine 0.3 0 - 4 /HPF LAB URINALYSIS - AUTOMATED METHOD 04/02/2025 7:02 PM [facility] Squamous Epithelial, Urine 17 0 - 60 /LPF LAB URINALYSIS - AUTOMATED METHOD 04/02/2025 7:02 PM [facility] Bacteria, Urine Negative Negative /HPF LAB URINALYSIS - AUTOMATED METHOD 04/02/2025 7:02 PM [facility] Hyaline Casts, Urine 0.4 0 - 3 /LPF LAB URINALYSIS - AUTOMATED METHOD 04/02/2025 7:02 PM [facility] Urine Urine specimen obtained by clean catch procedure / Unknown Non-blood Collection / Unknown 04/02/2025 4:21 PM EDT 04/02/2025 4:21 PM EDT us Saqib Evans MD LAB URINE ORDERABLES F inal Result Performing Organization Address [facility]/ZIP Co de Phone Number [facility] [address] [place] [address], [place] [phone] * Martinez urine culture tube (04/02/2025 4:21 PM EDT) Extra Tube Hold for add-ons. 04/02/2025 7:01 PM EDT [facility] Comment:Auto resulted. Urine Urine specimen obtained by clean catch procedure / Unknown Non-blood Collection / Unknown 04/02/2025 4:21 PM EDT 04/02/2025 4:21 PM EDT Saqib Evans MD LAB URINE ORDERABLES F inal Result Performing Organization Address [facility] Co de Phone Number [facility] [address] [place] [address], [place] [phone] * Microalbumin creatinine urine ratio (04/02/2025 4:21 PM EDT) Creatinine, Urine 137.0 mg/dL LAB CHEMISTRY METHOD 04/02/2025 7:51 PM EDT [facility] Microalb, Ur 5.1 0.0 - 29.0 mg/L LAB CHEMISTRY METHOD 04/02/2025 7:51 PM EDT [facility] Microalb/Creat Ratio 4 <30 mg/g creat LAB CHEMISTRY METHOD 04/02/2025 7:51 PM EDT [facility] Urine Urine specimen obtained by clean catch procedure / Unknown Non-blood Collection / Unknown 04/02/2025 4:21 PM EDT 04/02/2025 4:21 PM EDT us Saqib Evans MD LAB URINE ORDERABLES F inal Result Performing Organization Address [facility]/ZIP Co de Phone Number [facility] [address] [place] [address], [place] [phone] * Culture urine (04/02/2025 4:21 PM EDT) Only the most recent of2 resultswithin the time period is included. [facility] Culture, Urine No growth 04/03/2025 1:48 PM EDT [facility] Urine Urine specimen obtained by clean catch procedure / Unknown Non-blood Collection / Unknown 04/02/2025 4:21 PM EDT 04/02/2025 7:02 PM EDT us Saqib Evans MD LAB MICROBIOLOGY - GEN ERAL ORDERABLES Final Result Performing Organization Address [facility] Co de Phone Number [facility] [address] [place] [address], [place] [phone] * Basic metabolic panel (04/02/2025 4:21 PM EDT) [facility] Sodium 139 133 - 145 mmol/L LAB CHEMISTRY METHOD 04/02/2025 7:05 PM EDT [facility] Potassium 3.6 3.5 - 5.5 mmol/L LAB CHEMISTRY METHOD 04/02/2025 7:05 PM EDT [facility] Chloride 106 96 - 110 mmol/L LAB CHEMISTRY METHOD 04/02/2025 7:05 PM T [facility] CO2 27 21 - 32 mmol/L LAB CHEMISTRY METHOD 04/02/2025 7:05 PM EDT [facility] Anion Gap 6 3 - 11 LAB CHEMISTRY METHOD 04/02/2025 7:05 PM EDT [facility] Glucose 87 70 - 100 mg/dL LAB CHEMISTRY METHOD 04/02/2025 7:05 PM EDT [facility] BUN 11 5 - 25 mg/dL LAB CHEMISTRY METHOD 04/02/2025 7:05 PM EDT [facility] Creatinine 0.71 0.50 - 1.10 mg/dL LAB CHEMISTRY METHOD 04/02/2025 7:05 PM EDT [facility] eGFR 117 >=60 mL/min/1. 73m2 LAB CHEMISTRY METHOD 04/02/2025 7:05 PM EDT [facility] Comment:Calculation based on the Chronic Kidney Disease Epidemiology Collaboration (CKD-EPI) equation refit without adjustment for race. BUN/Creatinine Ratio 15.5 LAB CHEMISTRY METHOD 04/02/2025 7:05 PM EDT [facility] Calcium 9.0 8.5 - 10.5 mg/dL LAB CHEMISTRY METHOD 04/02/2025 7:05 PM EDT [facility] Blood Venous blood specimen / Unknown Venipuncture / Unknown 04/02/2025 4:21 PM EDT 04/02/2025 4:21 PM EDT us Saqib Evans MD LAB BLOOD ORDERABLES F inal Result Performing Organization Address [facility]/ZIP Co de Phone Number [facility] [address] [place] [address], * Hepatitis C antibody (03/08/2025 8:17 AM EDT) Hepatitis C Antibody Negative Negative LAB CHEMISTRY METHOD 03/08/2025 12:20 PM EDT [facility] Blood Venous blood specimen / Unknown Venipuncture / Unknown 03/08/2025 8:17 AM EDT 03/08/2025 8:17 AM EDT us Catie Baca MD LAB BLOOD ORDERABL ES Final Result [facility] [address] [place] [address], [place] [phone] * Thyroid stimulating hormone with reflex to free t4 and free t3 (03/08/2025 8:17 AM EDT) TSH 1.05 0.40 - 4.00 mcIU/mL LAB CHEMISTRY METHOD 03/08/2025 11:40 AM EDT [facility] Blood Venous blood specimen / Unknown Venipuncture / Unknown 03/08/2025 8:17 AM EDT 03/08/2025 8:17 AM EDT Catie Baca MD LAB BLOOD ORDERABL ES Final Result Performing Organization Address [facility] de Phone Number [facility] [address] [place] [address], [place] [phone] * Lipid panel with reflex to direct LDL (03/08/2025 8:17 AM EDT) Pathologist [facility] Cholesterol 162 0 - 200 mg/dL LAB CHEMISTRY METHOD 03/08/2025 10:47 AM EDT [facility] Triglycerides 47 0 - 150 mg/dL LAB CHEMISTRY METHOD 03/08/2025 10:47 AM EDT [facility] HDL 59 >=40 mg/dL LAB CHEMISTRY METHOD 03/08/2025 10:47 AM EDT [facility] LDL Calculated 94 0 - 100 mg/dL LAB CHEMISTRY METHOD 03/08/2025 10:47 AM EDT [facility] Comment:Estimated LDL Calcul ated using equation: Total cholesterol - HDL cholesterol - (Triglycerides/5) VLDL Cholesterol Sergo 9.4 mg/dL LAB CHEMISTRY METHOD 03/08/2025 10:47 AM EDT [facility] Non HDL Chol. (LDL+VLDL) 103 <145 mg/dL LAB CHEMISTRY METHOD 03/08/2025 10:47 AM EDT [facility] Chol/HDL Ratio 2.7 0.0 - 4.4 LAB CHEMISTRY METHOD 03/08/2025 10:47 AM T [facility] Blood Venous blood specimen / Unknown Venipuncture / Unknown 03/08/2025 8:17 AM EDT 03/08/2025 8:17 AM EDT us Catie Baca MD LAB BLOOD ORDERABL ES Final Result [facility] [address] [place] [address], * CBC auto differential (03/08/2025 8:17 AM EDT) WBC 6.1 4.8 - 10.8 K/mcL LAB HEMETOLOGY METHOD 03/08/2025 10:08 AM [facility] RBC 4.40 3.80 - 4.80 M/mcL LAB HEMETOLOGY METHOD 03/08/2025 10:08 AM [facility] Hemoglobin 13.2 11.5 - 16.0 g/dL LAB HEMETOLOGY METHOD 03/08/2025 10:08 AM [facility] Hematocrit 39.0 35.0 - 47.0 % LAB HEMETOLOGY METHOD 03/08/2025 10:08 AM [facility] MCV 89.2 79.0 - 98.0 FL LAB HEMETOLOGY METHOD 03/08/2025 10:08 AM [facility] MCH 30.2 27.0 - 32.0 pcg LAB HEMETOLOGY METHOD 03/08/2025 10:08 AM [facility] MCHC 33.8 32.0 - 37.0 g/dL LAB HEMETOLOGY METHOD 03/08/2025 10:08 AM [facility] RDW 12.4 11.0 - 15.0 % LAB HEMETOLOGY METHOD 03/08/2025 10:08 AM [facility] Platelets 241 130 - 400 K/mcL LAB HEMETOLOGY METHOD 03/08/2025 10:08 AM [facility] MPV 10.3 7.0 - 11.0 FL LAB HEMETOLOGY METHOD 03/08/2025 10:08 AM [facility] NRBC 0.0 <1.0 % LAB HEMETOLOGY METHOD 03/08/2025 10:08 AM [facility] NRBC Absolute 0.00 <0.10 K/mcL LAB HEMETOLOGY METHOD 03/08/2025 10:08 AM [facility] Neutrophils Relative 63.8 % LAB HEMETOLOGY METHOD 03/08/2025 10:08 AM [facility] Lymphocytes Relative 26.3 % LAB HEMETOLOGY METHOD 03/08/2025 10:08 AM [facility] Monocytes Relative 8.1 % LAB HEMETOLOGY METHOD 03/08/2025 10:08 AM [facility] Eosinophils Relative 1.0 % LAB HEMETOLOGY METHOD 03/08/2025 10:08 AM [facility] Basophils Relative 0.5 % LAB HEMETOLOGY METHOD 03/08/2025 10:08 AM [facility] Immature Granulocytes Relative 0.3 % LAB HEMETOLOGY METHOD 03/08/2025 10:08 AM [facility] Neutrophils Absolute 3.88 1.50 - 7.00 K/mcL LAB HEMETOLOGY METHOD 03/08/2025 10:08 AM [facility] Lymphocytes Absolute 1.60 1.00 - 5.00 K/mcL LAB HEMETOLOGY METHOD 03/08/2025 10:08 AM [facility] Monocytes Absolute 0.49 0.20 - 1.00 K/mcL LAB HEMETOLOGY METHOD 03/08/2025 10:08 AM EDT [facility] Eosinophils Absolute 0.06 0.00 - 0.50 K/[facility] LAB HEMETOLOGY METHOD 03/08/2025 10:08 AM [facility] Basophils Absolute 0.03 0.00 - 0.20 K/[facility] LAB HEMETOLOGY METHOD 03/08/2025 10:08 AM EDT [facility] Immature Granulocytes Absolute 0.02 0.00 - 0.03 K/[facility] 03/08/2025 10:08 AM [facility] Blood Venous blood specimen / Unknown Venipuncture / Unknown 03/08/2025 8:17 AM EDT 03/08/2025 8:17 AM EDT Catie Baca MD LAB BLOOD ORDERABL ES Final Result [facility] [address] [place] [address], * Comprehensive metabolic panel (03/08/2025 8:17 AM EDT) Sodium 138 133 - 145 mmol/L LAB CHEMISTRY METHOD 03/08/2025 10:43 AM [facility] Potassium 4.0 3.5 - 5.5 mmol/L LAB CHEMISTRY METHOD 03/08/2025 10:43 AM [facility] Chloride 107 96 - 110 mmol/L LAB CHEMISTRY METHOD 03/08/2025 10:43 AM [facility] CO2 27 21 - 32 mmol/L LAB CHEMISTRY METHOD 03/08/2025 10:43 AM [facility] Anion Gap 4 3 - 11 LAB CHEMISTRY METHOD 03/08/2025 10:43 AM [facility] Glucose 86 70 - 100 mg/dL LAB CHEMISTRY METHOD 03/08/2025 10:43 AM [facility] BUN 8 5 - 25 mg/dL LAB CHEMISTRY METHOD 03/08/2025 10:43 AM [facility] Creatinine 0.69 0.50 - 1.10 mg/dL LAB CHEMISTRY METHOD 03/08/2025 10:43 AM [facility] eGFR 120 >=60 mL/min/1. 73m2 LAB CHEMISTRY METHOD 03/08/2025 10:43 AM [facility] Comment:Calculation based on the Chronic Kidney Disease Epidemiology Collaboration (CKD-EPI) equation refit without adjustment for race. BUN/Creatinine Ratio 11.6 LAB CHEMISTRY METHOD 03/08/2025 10:43 AM [facility] Calcium 9.2 8.5 - 10.5 mg/dL LAB CHEMISTRY METHOD 03/08/2025 10:43 AM [facility] AST (SGOT) 18 10 - 42 unit/L LAB CHEMISTRY METHOD 03/08/2025 10:43 AM [facility] ALT (SGPT) 19 10 - 60 unit/L LAB CHEMISTRY METHOD 03/08/2025 10:43 AM [facility] Alkaline Phosphatase 68 42 - 121 unit/L LAB CHEMISTRY METHOD 03/08/2025 10:43 AM [facility] Total Protein 7.1 6.0 - 8.0 g/dL LAB CHEMISTRY METHOD 03/08/2025 10:43 AM [facility] Albumin 4.1 3.2 - 5.0 g/dL LAB CHEMISTRY METHOD 03/08/2025 10:43 AM [facility] Total Bilirubin 0.7 0.0 - 1.4 mg/dL LAB CHEMISTRY METHOD 03/08/2025 10:43 AM [facility] Blood Venous blood specimen / Unknown Venipuncture / Unknown 03/08/2025 8:17 AM EDT 03/08/2025 8:17 AM EDT Catie Baca MD LAB BLOOD ORDERABL ES Final Result [facility] [address] [place] [address], [place] [phone] * Depression Screening (02/17/2024) Depression Screening ABSTRACTED Historical Provider HEALTH MAINTENANCE Final Result * HIV Screening (02/24/2022) HIV Screening ABSTRACTED Historical Provider HEALTH MAINTENANCE Final Result * Pap Smear (09/16/2021) Pap smear no interpretation , abstracted Historical Provider HEALTH MAINTENANCE Final Result from Last 3 Months or Most Recently Relevant to Health Maintenance Insurance [facility] Care Teams English Adjunct Faculty Relationship Specialty Start Date End Date Catie Baca MD [address] [place] [phone] PCP - General Internal Medicine 02/03/22
== END 2025-04-03 13:09 | disposition home or self-care (01) ==
LOC: HO.HWS 12:59
PROVIDERS: Visit Provider Advanced Practice Midwife
DX: Z30.42 Encounter for surveillance of injectable contraceptive (principal)

== ENCOUNTER → 2025-04-03 12:59 | Outpatient (BNVA) | payer OTHER, SELFPAY | PROVIDERS: Visit Provider Advanced Practice Midwife | DX: Z30.013 Encounter for initial prescription of injectable contraceptive (principal) | CPT/HCPCS: 96372; 99211; J1050 ==

== ENCOUNTER 2025-04-12 15:18 | Outpatient (REF) | payer OTHER, SELFPAY ==
--- NOTE | ~2025-04-12 | US_ITS ---
EXAMINATION: US PELVIS CLINICAL INFORMATION: Pelvic and perineal pain. COMPARISON: 02/14/2024, 05/21/2020. TECHNIQUE: Ultrasound of the pelvis is performed using both transabdominal and transvaginal transducers along with Doppler. Transvaginal imaging is performed due to inadequate visualization transabdominally. FINDINGS: Uterus: The uterus is retroverted, retroflexed and measures 6.8 x 3.6 x 4.7 cm. The cervix has a normal appearance. The double wall endometrial thickness is 4 mm. It is uniform without irregularity. The uterus is smooth in contour and has normal myometrial echogenicity. No visible fibroid. Small nonspecific calcification is again noted in the lower uterine segment. Adnexa: Both ovaries are visualized. There is normal color flow to the adnexa. There is no ovarian torsion. There is no pelvic ascites or fluid collection. There are no adnexal masses. Right ovary measures 2.6 x 1.6 x 1.7 cm. Volume = 3.7 mL. Normal sonographic appearance. Left ovary measures 2.8 x 1.3 x 1.2 cm. Volume = 2.3 mL. Normal sonographic appearance. US/US pelvic and transvaginal IMPRESSION: 1. Normal pelvic ultrasound. Electronically signed by: Brodie Burciaga MD 04/12/2025 04:07 PM EDT
== END 2025-04-12 15:19 | disposition home or self-care (01) ==
LOC: HO.US 15:18
PROVIDERS: Visit Provider Advanced Practice Midwife
DX: R10.20 Pelvic and perineal pain unspecified side (principal)
CPT/HCPCS: 76830; 76856

== ENCOUNTER → 2025-04-12 15:19 | Outpatient (BNV) | payer OTHER, SELFPAY | PROVIDERS: Visit Provider Radiology Diagnostic Radiology | DX: R10.20 Pelvic and perineal pain unspecified side (principal) | CPT/HCPCS: 76830; 76856 ==

== ENCOUNTER 2025-04-19 10:01 | Outpatient (AMB) | payer OTHER, SELFPAY ==
--- NOTE | 2025-04-19 10:04 | MHC.OFFVIS ---
Intake Visit Reasons: ultrasound results Material Control Specialist: Material Control Specialist Present Allergies mold Allergy (Verified 04/19/25 10:04) Unknown roaches Allergy (Intermediate, Uncoded 03/27/25 14:34) Hives Is last menstrual period known: Yes HPI Comments Details: Patient is here for a follow up pelvic ultrasound due to pelvic pain. Pain is 2/10, random and intermittent, bloating continues persist all day, no changes with the admissions or triggers noted. Recently seen at her primary care who ordered another ultrasound and perform labs she reports were all negative, no copies available today. She has a referral to Urology on April 26 for persistent micro hematuria. Followed monthly at [facility] for iron infusions and with her PCP monthly for B12 injections. Her GI providers through [facility] followed for her GERD and history of gastric ulcers. [facility] Medical History Iron deficiency B12 deficiency History of gastric ulcer Gonorrhea contact Cobalamin deficiency Migraines Acid reflux H. 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 Sexual orientation: Straight/Heterosexual Gender identity: Female Female Reproductive History Menstrual Age of Menarche: 12 Review of Systems Const All systems reviewed & are unremarkable except as noted in HPI and below Endo Reports no additional complaints Physical Exam Const General: cooperative, healthy appearing and no acute distress Psych Appearance: well kempt Attitude: cooperative Thought process: Normal thought process present Results Reviewed Results Reviewed: [address] [address] Ultrasound Report Signed Patient: Kait Arteaga MR#: [id number] : 1995 Acct:[id number] Age/Sex: 29 / F ADM Date: 04/12/25 Loc: HO. Attending Dr: Nahomi Hopper CNM Ordering Physician: Nahomi Hopper CNM Date of Service: 04/12/25 Procedure(s): US pelvic and transvaginal Accession Number(s): [id number] cc: Nahomi Hopper CNM~ Reason for Exam: R10.2 - Pelvic and perineal pain EXAMINATION: US PELVIS CLINICAL INFORMATION: Pelvic and perineal pain. COMPARISON: 02/14/2024, 05/21/2020. TECHNIQUE: Ultrasound of the pelvis is performed using both transabdominal and transvaginal transducers along with Doppler. Transvaginal imaging is performed due to inadequate visualization transabdominally. FINDINGS: Uterus: The uterus is retroverted, retroflexed and measures 6.8 x 3.6 x 4.7 cm. The cervix has a normal appearance. The double wall endometrial thickness is 4 mm. It is uniform without irregularity. The uterus is smooth in contour and has normal myometrial echogenicity. No visible fibroid. Small nonspecific calcification is again noted in the lower uterine segment. Adnexa: Both ovaries are visualized. There is normal color flow to the adnexa. There is no ovarian torsion. There is no pelvic ascites or fluid collection. There are no adnexal masses. Right ovary measures 2.6 x 1.6 x 1.7 cm. Volume = 3.7 mL. Normal sonographic appearance. Left ovary measures 2.8 x 1.3 x 1.2 cm. Volume = 2.3 mL. Normal sonographic appearance. US/US pelvic and transvaginal IMPRESSION: 1. Normal pelvic ultrasound. Electronically signed by: Brodie Burciaga MD 04/12/2025 04:07 PM EDT Dictated By: Brodie Burciaga MD Signed By: <Electronically signed by Brodie Burciaga MD in OV> 04/12/25 1607 DD/ 1530 TD/TT: 04/12/25 1540 Humanities Department Chair: Assessment & Plan Assessment & Plan (1) Pelvic pain: Code(s): R10.2 - Pelvic and perineal pain Category: Medical (2) Encounter to discuss test results: Code(s): Z71.2 - Person consulting for explanation of examination or test findings Category: Medical Plan Discussed: Ultrasound findings- IMPRESSION: 1. Normal pelvic ultrasound. Advised to follow up if any knitting demonstrator concerns. Reviewed common causes or concern for lower abdominal pain including knitting demonstrator origin, GI, urinary, musculoskeletal, and unknown. Reviewed dietary changes and elimination process to see if food sensitivities exist. Follow up with specialties including Urology, GI and primary care. Keep appointment June for Depo. Annual exam scheduled January 2026. The patient expressed understanding and agreement with the plan of care. All of her questions and concerns were addressed to the best of my ability. This note is constructed using voice recognition software. While every effort has been made to ensure accuracy, social and human services assistant errors may have been included. Coding Level of Care Code Est Pt Level 3 (27321) Diagnoses Pelvic pain R10.2 Encounter to discuss test results Z71.2
--- OUTSIDE RECORDS SUMMARY | 2025-04-19 11:56 | XMS_ITS | Clinical Summary ---
Author Organization [facility] Address [address] [place] [address] Care Team Providers Care Plumbing Designer Name Role Phone No, Pcp Primary Care [...] on file Legal Sex Female 11:[address] [facility] Gender Identity Not on file [...] - 1-do se 75+ series) 2069 Insurance [facility] Care Teams Plumbing Designer Relationship Specialty Start Date End Date No, Pcp PCP - General 01/26/22
--- OUTSIDE RECORDS SUMMARY | 2025-04-19 11:56 | XMS_ITS | Clinical Summary ---
Author Organization [facility] [address] [place] [address] Address [address] [place] [address] Phone Care Team Providers Care Loop Machine Operator Name Role Phone Caite Baca MD Primary Care Prov ider Allergies [...] replace cap. 16 g 1 5 Active fluticasone propionate (FLONASE) 50 mcg/actuation nasal spray 2 Sprays by Nasal route daily. Two sprays in each nostril daily for a week. 2 04/02/20 25 Discontinu ed(Reorder ) Hospital, Clinic, or Other Facility Administered Medication Ordered Dose Route Frequency Start Date End Date Status cyanocobalamin (VITAMIN B-12) injection 1,000 mcgIndications:Vitamin B12 deficiency 1000 mcg IM Every 30 days 03/07/2025 09/03/2025 Active Active Problems Problem Noted Date Diagnosed [...] Encounters Date Type Department Care Team Description 04/09/[address] [address] Saqib Evans MD 04/04/2025 11:30 AM EDT Clinical Support [address] [address] Vitamin B12 deficiency (Primary Dx) 04/03/2025 10:30 AM EDT - 04/03/2025 11:59 PM EDT Hospital Encounter Ultrasound - [address] [address] Hematuria, unspecified type Discharge Disposition: Home or Self Care 04/03/2025 Results Follow-Up [address] [address] Saqib Evans MD 04/02/2025 3:30 PM EDT Office Visit [address] [address] Saqib Evans MD Hematuria, unspecified type (Primary Dx) 03/07/2025 7:30 AM EDT Office Visit [address] [address] Catie Amezquita MD Adult general medical examination (Primary Dx); Need for hepatitis C screening test; Encounter for lipid screening for cardiovascular disease; Eczema, unspecified type; Vitamin B12 deficiency from Last 3 Months Immunizations Immunization Administration Dates Next Due DTP 05/25/1995,03/25/1995,01/20/1995 DTaP (Infanrix) 6wks to less than 7yo 12/11/1999 ,07/26/1996 [id number] (Pentacel) 2mo to less than 5yo 11/16/1995,05/25/1995,03/25/1995,01/20 [...] Care Team (Late st Contact Info) Description 05/02/2025 2:00 PM EDT Clinical Support Adult Medicine [address] [phone] 03/08/2026 2:00 PM EDT Office Visit Adult Medicine [address] [phone] Catie Baca MD [address] [place] [address] Health Maintenance Due Date Last Done Comments [...] Name Priority Date/Time Associated Diagnosis Comments US ERWIN COMPLETE Routine 04/03/2025 10:53 AM EDT Hematuria, [...] Signed Date: 04/03/2025 12:12 ET Workstation ID: [id number] Transcribed By: Self Edit Transcribed Date: 04/03/2025 [...] Signed Date: 04/03/2025 12:12 ET Workstation ID: [id number] Transcribed By: Self Edit Transcribed Date: 04/03/2025 [...] and culture (04/02/2025 4:21 PM EDT) Specific Elizabeth Urine 1.018 1.003 - 1.030 LAB URINALYSIS - AUTOMATED METHOD 04/02/2025 7:02 PM EDT [facility] pH, Urine 6.5 5.0 - 8.0 pH LAB URINALYSIS - AUTOMATED METHOD 04/02/2025 7:02 PM EDT [facility] Leukocytes, Urine Trace(A) Negative LAB URINALYSIS - AUTOMATED METHOD 04/02/2025 7:02 PM EDT [facility] Nitrite, Urine Negative Negative LAB URINALYSIS - AUTOMATED METHOD 04/02/2025 7:02 PM [facility] Protein, Urine Negative <=Trace mg/dL LAB URINALYSIS - AUTOMATED METHOD 04/02/2025 7:02 PM [facility] Glucose, Urine Negative Negative mg/dL LAB URINALYSIS - AUTOMATED METHOD 04/02/2025 7:02 PM [facility] Ketones, Urine Negative Negative mg/dL LAB URINALYSIS - AUTOMATED METHOD 04/02/2025 7:02 PM [facility] Urobilinogen, Urine 0.2 0.2 - 1.0 mg/dL LAB URINALYSIS - AUTOMATED METHOD 04/02/2025 7:02 PM [facility] Bilirubin, Urine Negative Negative LAB URINALYSIS - AUTOMATED METHOD 04/02/2025 7:02 PM [facility] Blood, Urine Small(A) Negative LAB URINALYSIS - AUTOMATED METHOD 04/02/2025 7:02 PM [facility] RBC, Urine 9.4(H) 0 - 4 /HPF LAB URINALYSIS - AUTOMATED METHOD 04/02/2025 7:02 PM [facility] WBC, Urine 0.3 0 - 4 /HPF LAB URINALYSIS - AUTOMATED METHOD 04/02/2025 7:02 PM [facility] Squamous Epithelial, Urine 17 0 - 60 /LPF LAB URINALYSIS - AUTOMATED METHOD 04/02/2025 7:02 PM [facility] Bacteria, Urine Negative Negative /HPF LAB URINALYSIS - AUTOMATED METHOD 04/02/2025 7:02 PM [facility] Hyaline Casts, Urine 0.4 0 - 3 /LPF LAB URINALYSIS - AUTOMATED METHOD 04/02/2025 7:02 PM [facility] Urine Urine specimen obtained by clean catch procedure / Unknown Non-blood Collection / Unknown 04/02/2025 4:21 PM EDT 04/02/2025 4:21 PM EDT us Saqib Evans MD LAB URINE ORDERABLES F inal Result Performing Organization Address [facility]/ZIP Co de Phone Number [facility] [address] [place] [address], [place] [phone] * Martinez urine culture tube (04/02/2025 4:21 PM EDT) Pathologist [facility] Extra Tube Hold for add-ons. 04/02/2025 7:01 PM EDT [facility] Comment:Auto resulted. Urine Urine specimen obtained by clean catch procedure / Unknown Non-blood Collection / Unknown 04/02/2025 4:21 PM EDT 04/02/2025 4:21 PM EDT us Saqib Evans MD LAB URINE ORDERABLES F inal Result Performing Organization Address [facility] de Phone Number [facility] [address] [place] [address], [place] [phone] * Microalbumin creatinine urine ratio (04/02/2025 4:21 [...] ORDERABLES F inal Result Performing Organization Address City/[facility]/ZIP Co de Phone Number [facility] [address] [place] [address], [place] [phone] * Culture urine (04/02/2025 4:21 PM EDT) Only the most recent of2 resultswithin the time period is included. [facility] Culture, Urine No growth 04/03/2025 1:48 PM EDT [facility] Urine Urine specimen obtained by clean catch procedure / Unknown Non-blood Collection / Unknown 04/02/2025 4:21 PM EDT 04/02/2025 7:02 PM EDT us Saqib Evans MD LAB MICROBIOLOGY - GEN ERAL ORDERABLES Final Result Performing Organization Address [facility]/ZIP Co de Phone Number [facility] [address] [place] [address], [place] [phone] * Basic metabolic panel (04/02/2025 4:21 PM EDT) [facility] Sodium 139 133 - 145 mmol/L LAB CHEMISTRY METHOD 04/02/2025 7:05 PM [facility] Potassium 3.6 3.5 - 5.5 mmol/L LAB CHEMISTRY METHOD 04/02/2025 7:05 PM [facility] Chloride 106 96 - 110 mmol/L LAB CHEMISTRY METHOD 04/02/2025 7:05 PM [facility] CO2 27 21 - 32 mmol/L LAB CHEMISTRY METHOD 04/02/2025 7:05 PM [facility] Anion Gap 6 3 - 11 LAB CHEMISTRY METHOD 04/02/2025 7:05 PM [facility] Glucose 87 70 - 100 mg/dL LAB CHEMISTRY METHOD 04/02/2025 7:05 PM [facility] BUN 11 5 - 25 [...] MD LAB BLOOD ORDERABLES F inal Result [facility] [address] [place] [address], [place] [phone] * Hepatitis C antibody (03/08/2025 8:17 AM EDT) Hepatitis C Antibody Negative Negative LAB CHEMISTRY METHOD 03/08/2025 12:20 PM EDT [facility] Blood Venous blood specimen / Unknown Venipuncture / Unknown 03/08/2025 8:17 AM EDT 03/08/2025 8:17 AM EDT us Catie Baca MD LAB BLOOD ORDERABL ES Final Result [facility] [address] [place] [address], [place] [phone] * Thyroid stimulating hormone with reflex to [...] Result [facility] [address] [place] [address], [place] [phone] * Lipid panel with reflex to direct LDL (03/08/2025 8:17 AM EDT) Pathologist [facility] Cholesterol 162 0 - 200 mg/dL LAB CHEMISTRY METHOD 03/08/2025 10:47 AM [facility] Triglycerides 47 0 - 150 mg/dL LAB CHEMISTRY METHOD 03/08/2025 10:47 AM [facility] HDL 59 >=40 mg/dL LAB CHEMISTRY METHOD 03/08/2025 10:47 AM [facility] LDL Calculated 94 0 - 100 mg/dL LAB CHEMISTRY METHOD 03/08/2025 10:47 AM T [facility] Comment:Estimated LDL Calcul ated using equation: Total cholesterol - HDL cholesterol - (Triglycerides/5) VLDL Cholesterol Sergo 9.4 mg/dL LAB CHEMISTRY METHOD 03/08/2025 10:47 AM [facility] Non HDL Chol. (LDL+VLDL) 103 <145 mg/dL LAB CHEMISTRY METHOD 03/08/2025 10:47 AM [facility] Chol/HDL Ratio 2.7 0.0 - 4.4 LAB CHEMISTRY METHOD 03/08/2025 10:47 AM T [facility] Blood Venous blood specimen / Unknown Venipuncture / Unknown 03/08/2025 8:17 AM EDT 03/08/2025 8:17 AM EDT us Catie Baca MD LAB BLOOD ORDERABL ES Final Result [facility] [address] [place] [address], * CBC auto differential (03/08/2025 8:17 AM EDT) WBC 6.1 4.8 - 10.8 K/mcL LAB HEMETOLOGY METHOD 03/08/2025 10:08 AM [facility] RBC 4.40 3.80 - 4.80 M/mcL LAB HEMETOLOGY METHOD 03/08/2025 10:08 AM EDT [facility] Hemoglobin 13.2 11.5 - 16.0 g/dL LAB HEMETOLOGY METHOD 03/08/2025 10:08 AM [facility] Hematocrit 39.0 35.0 - 47.0 % LAB HEMETOLOGY METHOD 03/08/2025 10:08 AM [facility] MCV 89.2 79.0 - 98.0 FL LAB HEMETOLOGY METHOD 03/08/2025 10:08 AM T [facility] MCH 30.2 27.0 - 32.0 pcg LAB HEMETOLOGY METHOD 03/08/2025 10:08 AM [facility] MCHC 33.8 32.0 - 37.0 g/dL LAB HEMETOLOGY METHOD 03/08/2025 10:08 AM [facility] RDW 12.4 11.0 - 15.0 % LAB HEMETOLOGY METHOD 03/08/2025 10:08 AM [facility] Platelets 241 130 - 400 K/mcL LAB HEMETOLOGY METHOD 03/08/2025 10:08 AM [facility] MPV 10.3 7.0 - 11.0 FL LAB HEMETOLOGY METHOD 03/08/2025 10:08 AM [facility] NRBC 0.0 <1.0 % LAB HEMETOLOGY METHOD 03/08/2025 10:08 AM [facility] NRBC Absolute 0.00 <0.10 K/mcL LAB HEMETOLOGY METHOD 03/08/2025 10:08 AM [facility] Neutrophils Relative 63.8 % LAB HEMETOLOGY METHOD 03/08/2025 10:08 AM [facility] Lymphocytes Relative 26.3 % LAB HEMETOLOGY METHOD 03/08/2025 10:08 AM [facility] Monocytes Relative 8.1 % LAB HEMETOLOGY METHOD 03/08/2025 10:08 AM [facility] Eosinophils Relative 1.0 % LAB HEMETOLOGY METHOD 03/08/2025 10:08 AM [facility] Basophils Relative 0.5 % LAB HEMETOLOGY METHOD 03/08/2025 10:08 AM [facility] Immature Granulocytes Relative 0.3 % LAB HEMETOLOGY METHOD 03/08/2025 10:08 AM [facility] Neutrophils Absolute 3.88 1.50 - 7.00 K/mcL LAB HEMETOLOGY METHOD 03/08/2025 10:08 AM [facility] Lymphocytes Absolute 1.60 1.00 - 5.00 K/mcL LAB HEMETOLOGY METHOD 03/08/2025 10:08 AM [facility] Monocytes Absolute 0.49 0.20 - 1.00 K/mcL LAB HEMETOLOGY METHOD 03/08/2025 10:08 AM [facility] Eosinophils Absolute 0.06 0.00 - 0.50 K/mcL LAB HEMETOLOGY METHOD 03/08/2025 10:08 AM T [facility] Basophils Absolute 0.03 0.00 - 0.20 K/mcL LAB HEMETOLOGY METHOD 03/08/2025 10:08 AM [facility] Immature Granulocytes Absolute 0.02 0.00 - 0.03 K/mcL LAB HEMETOLOGY METHOD 03/08/2025 10:08 AM [facility] Blood Venous blood specimen / Unknown Venipuncture / Unknown 03/08/2025 8:17 AM EDT 03/08/2025 8:17 AM EDT us Catie Baca MD LAB BLOOD ORDERABL ES Final Result [facility] [address] [place] [address], [place] [phone] * Comprehensive metabolic panel (03/08/2025 8:17 AM EDT) Sodium 138 133 - 145 mmol/L LAB CHEMISTRY METHOD 03/08/2025 10:43 AM [facility] Potassium 4.0 3.5 - 5.5 mmol/L LAB CHEMISTRY METHOD 03/08/2025 10:43 AM [facility] Chloride 107 96 - 110 mmol/L LAB CHEMISTRY METHOD 03/08/2025 10:43 AM [facility] CO2 27 21 - 32 mmol/L LAB CHEMISTRY METHOD 03/08/2025 10:43 AM [facility] Anion Gap 4 3 - 11 LAB CHEMISTRY METHOD 03/08/2025 10:43 AM [facility] Glucose 86 70 - 100 mg/dL LAB CHEMISTRY METHOD 03/08/2025 10:43 AM [facility] BUN 8 5 - 25 mg/dL LAB CHEMISTRY METHOD 03/08/2025 10:43 AM [facility] Creatinine 0.69 0.50 - 1.10 mg/dL LAB CHEMISTRY METHOD 03/08/2025 10:43 AM [facility] eGFR 120 >=60 mL/min/1. 73m2 LAB CHEMISTRY METHOD 03/08/2025 10:43 AM [facility] Comment:Calculation based on the Chronic Kidney Disease Epidemiology Collaboration (CKD-EPI) equation refit without adjustment for race. BUN/Creatinine Ratio 11.6 LAB CHEMISTRY METHOD 03/08/2025 10:43 AM [facility] Calcium 9.2 8.5 - 10.5 mg/dL LAB CHEMISTRY METHOD 03/08/2025 10:43 AM [facility] AST (SGOT) 18 10 - 42 unit/L LAB CHEMISTRY METHOD 03/08/2025 10:43 AM [facility] ALT (SGPT) 19 10 - 60 unit/L LAB CHEMISTRY METHOD 03/08/2025 10:43 AM [facility] Alkaline Phosphatase 68 42 - 121 unit/L LAB CHEMISTRY METHOD 03/08/2025 10:43 AM [facility] Total Protein 7.1 6.0 - 8.0 g/dL LAB CHEMISTRY METHOD 03/08/2025 10:43 AM [facility] Albumin 4.1 3.2 - 5.0 g/dL LAB CHEMISTRY METHOD 03/08/2025 10:43 AM [facility] Total Bilirubin 0.7 0.0 - 1.4 mg/dL LAB CHEMISTRY METHOD 03/08/2025 10:43 AM [facility] Blood Venous blood specimen / Unknown Venipuncture / Unknown 03/08/2025 8:17 AM EDT 03/08/2025 8:17 AM EDT us Catie Baca MD LAB BLOOD ORDERABL ES Final Result [facility] [address] [place] [address], [place] [phone] * Depression Screening (02/17/2024) Depression Screening ABSTRACTED Historical Provider HEALTH MAINTENANCE Final Result * HIV Screening (02/24/2022) HIV Screening ABSTRACTED Historical Provider HEALTH MAINTENANCE Final Result * Pap Smear (09/16/2021) Pap smear no interpretation , abstracted Historical Provider HEALTH MAINTENANCE Final Result from Last 3 Months or Most Recently Relevant to Health Maintenance Insurance [facility] Care Teams Loop Machine Operator Relationship Specialty Start Date End Date Catie Baca MD [address], [place] PCP - General Internal Medicine 02/03/22
--- OUTSIDE RECORDS SUMMARY | 2025-04-19 11:56 | XMS_ITS | Encounter Summary ---
Author Organization [facility] Address [address] [place] [address] Care Team Providers Care Sofa Cover Inspector Name Role Phone Catie Baca MD Primary Care Prov ider Encounter Details Date Type Department Care Team (Late st Contact Info) Description 04/03/2025 Results Follow-Up Adult Medicine [facility] [address], [place] [phone] Saqib Evans MD [address] [place], [place] Social History Tobacco Use Types Packs/Day [...] 2:00 PM EDT Clinical Support Adult Medicine [address] [phone] 03/08/2026 2:00 PM EDT Office Visit Adult Medicine [address] [phone] Catie Baca MD [address] [place] [address] documented as of this encounter Visit Diagnoses Not on filedocumented in this encounter Additional Health Concerns Assessment Noted Time PHQ-9 Depression Total Score: 0 03/07/20 25 7:37 AM EDT documented as of this encounter Care Teams Sofa Cover Inspector Relationship Specialty Start Date End Date Catie Baca MD [address] [place] [phone] PCP - General Internal Medicine 02/03/22 documented as of this encounter
== END 2025-04-19 12:19 | disposition home or self-care (01) ==
LOC: HO.HWS 10:01
PROVIDERS: Visit Provider Advanced Practice Midwife
DX: R10.20 Pelvic and perineal pain unspecified side (principal); Z71.2 Person consulting for explanation of examination or test findings
CPT/HCPCS: 99213

== ENCOUNTER → 2025-04-19 10:01 | Outpatient (BNVA) | payer OTHER, SELFPAY | PROVIDERS: Visit Provider Advanced Practice Midwife | DX: R10.20 Pelvic and perineal pain unspecified side (principal); Z71.2 Person consulting for explanation of examination or test findings | CPT/HCPCS: 99212 ==

== ENCOUNTER 2025-05-29 16:38 | Emergency (ER) | payer OTHER, SELFPAY ==
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
--- NOTE | 2025-05-29 16:40 | ECG_ITS ---
Test Reason : chest pain Blood Pressure : */* mmHG Vent. Rate : 74 BPM Atrial Rate : 74 BPM P-R Int : 120 ms QRS Dur : 76 ms QT Int : 362 ms P-R-T Axes : 50 63 38 degrees QTcB Int : 401 ms Normal sinus rhythm Normal ECG No previous ECGs available Referred By: Generic ED Physician Electronically Signed By: Aftab Garces
[2025-05-29 16:48] VITALS: BP 111/60; PULSE 82; RESP 18; TEMP 36.3; O2SAT 97; BMI 27.5
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
[2025-05-29 17:32] LABS: Hematocrit 41.0 % (37.0-47.0); Hemoglobin 13.9 g/dl (12.0-16.0); Imm Gran Abs Auto 0.02 X10*3/uL (0.00-0.03); Imm Gran Pct Auto 0.2 % (0.0-0.4); Lymphocytes Absolute Auto 2.3 X10*3/uL (1.2-4.9); MANUAL DIFF FLAG NO; Mean Corpuscular HGB Conc 33.9 g/dl (31.0-35.0); Mean Corpuscular Hemoglobin 30.2 pg (27.0-33.0); Mean Corpuscular Volume 89.1 fL (80.0-98.0); NRBC Abs Auto 0.000 X10*3/uL (0.0-0.012); NRBC Pct Auto 0.0 /100WBC (0.0-0.2); Platelet Count 243 X10*3/uL (160-400); Red Blood Count 4.60 X10*6/uL (4.20-5.50); White Blood Count 8.7 X10*3/uL (4.8-10.8)
[2025-05-29 17:37] LABS: INTERNATIONAL NORM RATIO 1.0 (0.9-1.1); Prothrombin Time 12.3 SEC (11.2-13.5)
[2025-05-29 17:46] LABS: Alanine Aminotransferase 18 U/L (0-31); Albumin Level 4.6 g/dL (3.5-5.0); Alkaline Phosphatase 67 U/L (39-117); Anion Gap 12 (12-20); Aspartate Amino Transferase 23 U/L (5-31); Blood Urea Nitrogen 14 mg/dL (9-16); Calcium 9.3 mg/dL (8.4-10.2); Carbon Dioxide 25 mmol/L (22-29); Chloride 110 mmol/L (96-108); Creatinine Clr Calc Pharmacy 94.3; Estimated Glomerular Filt Rate > 60; Potassium 3.7 mmol/L (3.3-5.1); Sodium 143 mmol/L (135-145); Total Protein 7.4 g/dL (6.5-8.0)
[2025-05-29 17:55] LABS: Troponin-I High Sensitivity < 2.7 ng/L (<3.5-17.0)
[2025-05-29 18:51] VITALS: BP 120/56; PULSE 72; RESP 16; TEMP 36.7; O2SAT 98
[2025-05-29] MEDS: Lidocaine 4 % Patch ADH..PATCH 1 PATCH TRANSDERMA (19:10)
[2025-05-29 19:22] VITALS: BP 128/60; PULSE 72; RESP 16; TEMP 36.7; O2SAT 98
--- OUTSIDE RECORDS SUMMARY | 2025-05-29 19:43 | XMS_ITS | Clinical Summary ---
Author Organization [facility] Address [address] [place] [address] Care Team Providers Care Chronograph Operator Name Role Phone No, Pcp Primary Care [...] file Legal Sex Female 11:07 AM [facility] Gender Identity Not on file Sexual [...] (1 - 1-do se 75+ series) 2069 Hepatitis B Vaccines Completed 11/16/1995, 01/20/1995, 1994 MMR Vaccines Completed 11/18/1998, 11/16/1995 Varicella Vaccines Completed 03/23/2008, 02/12/1999 Insurance REPLACED BY [facility] [employer] Care Teams Chronograph Operator Relationship Specialty Start Date End Date No, Pcp PCP - General 01/26/22
--- OUTSIDE RECORDS SUMMARY | 2025-05-29 19:43 | XMS_ITS | Clinical Summary ---
Author Organization [facility] [place] [address] [place] [address] Address [address] [place] [address] Phone Care Team Providers Care Equipment Maintenance Engineer Name Role Phone Catie Baca MD Primary [...] fluticasone propionate (FLONASE) 50 mcg/actuation nasal spray SPRAY 2 SPRAYS INTO EACH NOSTRIL EVERY DAY SHAKE GENTLY. CLEAN TIP AND REPLACE CAP AFTER USE. 48 mL 1 5 Active Hospital, Clinic, or Other Facility Administered [...] Encounters Date Type Department Care Team Description 05/29/[address] [phone] Catie Amezquita MD 05/29/[address] [phone] Catie Amezquita MD 05/04/2025 1:00 PM EDT Office Visit [address] [phone] Catie Amezquita MD Generalized abdominal pain (Primary Dx); Hematuria, unspecified type 05/02/2025 2:00 PM EDT Clinical Support [address] [phone] Vitamin B12 deficiency (Primary Dx) 04/09/[address] [phone] Saqib Evans MD 04/04/2025 11:30 AM EDT Clinical Support [address] [phone] Vitamin B12 deficiency (Primary Dx) 04/03/2025 10:30 AM EDT - 04/03/2025 11:59 PM EDT Hospital Encounter [address] [phone] Hematuria, unspecified type Discharge Disposition: Home or Self Care 04/03/2025 Results Follow-Up [address] [phone] Saqib Evans MD 04/02/2025 3:30 PM EDT Office Visit [address] [phone] Saqib Evans MD Hematuria, unspecified type (Primary Dx) 03/07/2025 7:30 AM EDT Office Visit Adult Medicine [address] [phone] Catie Amezquita MD Adult general medical examination (Primary Dx); Need for hepatitis C screening test; Encounter for lipid screening for cardiovascular disease; Eczema, unspecified type; Vitamin B12 deficiency from Last 3 Months Immunizations Immunization Administration Dates Next Due DTP 05/25/1995,03/25/1995,01/20/1995 DTaP (Infanrix) 6wks to less than 7yo 12/11/1999 ,07/26/1996 MRnC-BBM-SCD (Pentacel) 2mo to less than 5yo 11/16/1995,05/25/1995,03/25/1995,01/20 [...] Sign Reading Time Taken Comments Blood Pressure 111/77 05/04/2025 1:28 PM EDT Pulse 74 05/04/2025 1:28 PM EDT Temperature 36.3 C (97.4 F) 05/04/2025 1:28 PM EDT Respiratory Rate 15 05/04/2025 1:28 PM EDT Oxygen Saturation 97% 05/04/2025 1:28 PM EDT Inhaled Oxygen Concentration - - Weight 69.5 kg (153 lb 3.2 oz) 05/04/2025 1:28 P M EDT Height 157.5 cm (5' 2 ) 05/04/2025 1:28 PM EDT Body Mass Index 28.02 05/04/2025 1:28 PM EDT Plan of Treatment Upcoming Encounters Date Type Department Care Team (Late st Contact Info) Description 03/08/2026 2:00 PM EDT Office Visit Adult Medicine [facility] [address] [place] [address] Catie Baca MD [address] [place], [place] Health Maintenance Due Date Last Done Comments COVID-19 Vaccine (3 - 2024- season) 2025 06/22/2021, 05/30/2021 Influenza Vaccine (#1) [...] Completed 02/24/2022 Depression Screening Completed 03/07/2025, 02/17/20 24 Hepatitis C Screening Completed 03/08/2025 Meningococcal B [...] Signed Date: 04/03/2025 12:12 ET Workstation ID: [id number] Transcribed By: Self Edit Transcribed Date: 04/03/2025 [...] Signed Date: 04/03/2025 12:12 ET Workstation ID: [id number] Transcribed By: Self Edit Transcribed Date: 04/03/2025 [...] and culture (04/02/2025 4:21 PM EDT) Specific [place] Urine 1.018 1.003 - 1.030 LAB URINALYSIS - AUTOMATED METHOD 04/02/2025 7:02 PM EDT [facility] pH, Urine 6.5 5.0 - 8.0 pH LAB URINALYSIS - AUTOMATED METHOD 04/02/2025 7:02 PM [facility] Leukocytes, Urine Trace(A) Negative LAB URINALYSIS - AUTOMATED METHOD 04/02/2025 7:02 PM [facility] Nitrite, Urine Negative Negative LAB URINALYSIS - AUTOMATED METHOD 04/02/2025 7:02 PM [facility] Protein, Urine Negative <=Trace mg/dL LAB URINALYSIS - AUTOMATED METHOD 04/02/2025 7:02 PM [facility] Glucose, Urine Negative Negative mg/dL LAB URINALYSIS - AUTOMATED METHOD 04/02/2025 7:02 PM [facility] Ketones, Urine Negative Negative mg/dL LAB URINALYSIS - AUTOMATED METHOD 04/02/2025 7:02 PM [facility] Urobilinogen, Urine 0.2 0.2 - 1.0 mg/dL LAB URINALYSIS - AUTOMATED METHOD 04/02/2025 7:02 PM [facility] Bilirubin, Urine Negative Negative LAB URINALYSIS - AUTOMATED METHOD 04/02/2025 7:02 PM [facility] Blood, Urine Small(A) Negative LAB URINALYSIS - AUTOMATED METHOD 04/02/2025 7:02 PM [facility] RBC, Urine 9.4(H) 0 - 4 /HPF LAB URINALYSIS - AUTOMATED METHOD 04/02/2025 7:02 PM [facility] WBC, Urine 0.3 0 - 4 /HPF LAB URINALYSIS - AUTOMATED METHOD 04/02/2025 7:02 PM [facility] Squamous Epithelial, Urine 17 0 - 60 /LPF LAB URINALYSIS - AUTOMATED METHOD 04/02/2025 7:02 PM [facility] Bacteria, Urine Negative Negative /HPF LAB URINALYSIS - AUTOMATED METHOD 04/02/2025 7:02 PM EDT [facility] Hyaline Casts, Urine 0.4 0 - 3 /LPF LAB URINALYSIS - AUTOMATED METHOD 04/02/2025 7:02 PM EDT [facility] Urine Urine specimen obtained by clean catch procedure / Unknown Non-blood Collection / Unknown 04/02/2025 4:21 PM EDT 04/02/2025 4:21 PM EDT us Saqib Evans MD LAB URINE ORDERABLES F inal Result Performing Organization Address City/[facility]/ZIP Co de Phone Number [facility] [address] [place] [address], [place] [phone] * [place] urine culture tube (04/02/2025 4:21 PM EDT) Extra Tube Hold for add-ons. 04/02/2025 7:01 PM EDT [facility] Comment:Auto resulted. Urine Urine specimen obtained by clean catch procedure / Unknown Non-blood Collection / Unknown 04/02/2025 4:21 PM EDT 04/02/2025 4:21 PM EDT us Saqib Evans MD LAB URINE ORDERABLES F inal Result Performing Organization Address City/[facility]/ZIP Co de Phone Number [facility] [address] [place] [address], [place] [phone] * Microalbumin creatinine urine ratio (04/02/2025 4:21 PM EDT) Creatinine, Urine 137.0 mg/dL LAB CHEMISTRY METHOD 04/02/2025 7:51 PM EDT [facility] Microalb, Ur 5.1 0.0 - 29.0 mg/L LAB CHEMISTRY METHOD 04/02/2025 7:51 PM EDT [facility] Microalb/Creat Ratio 4 <30 mg/g creat LAB CHEMISTRY METHOD 04/02/2025 7:51 PM EDT [facility] Urine Urine specimen obtained by clean catch procedure / Unknown Non-blood Collection / Unknown 04/02/2025 4:21 PM EDT 04/02/2025 4:21 PM EDT us Saqib Evans MD LAB URINE ORDERABLES F inal Result Performing Organization Address [facility]/ZIP Co de Phone Number [facility] [address] [place] [address], [place] [phone] * Culture urine (04/02/2025 4:21 PM EDT) Only the most recent of2 resultswithin the time period is included. Culture, Urine No growth 04/03/2025 1:48 PM EDT [facility] Urine Urine specimen obtained by clean catch procedure / Unknown Non-blood Collection / Unknown 04/02/2025 4:21 PM EDT 04/02/2025 7:02 PM EDT us Saqib Evans MD LAB MICROBIOLOGY - GEN ERAL ORDERABLES Final Result Performing Organization Address [facility]/ZIP Co de Phone Number [facility] [address] [place] [address], [place] [phone] * Basic metabolic panel (04/02/2025 4:21 PM EDT) Sodium 139 133 - 145 mmol/L LAB CHEMISTRY METHOD 04/02/2025 7:05 PM EDT [facility] Potassium 3.6 3.5 - 5.5 mmol/L LAB CHEMISTRY METHOD 04/02/2025 7:05 PM EDT [facility] Chloride 106 96 - 110 mmol/L LAB CHEMISTRY METHOD 04/02/2025 7:05 PM EDT [facility] CO2 27 21 - 32 mmol/L LAB CHEMISTRY METHOD 04/02/2025 7:05 PM [facility] Anion Gap 6 3 - 11 LAB CHEMISTRY METHOD 04/02/2025 7:05 PM [facility] Glucose 87 70 - 100 mg/dL LAB CHEMISTRY METHOD 04/02/2025 7:05 PM [facility] BUN 11 5 - 25 mg/dL LAB CHEMISTRY METHOD 04/02/2025 7:05 PM [facility] Creatinine 0.71 0.50 - 1.10 mg/dL LAB CHEMISTRY METHOD 04/02/2025 7:05 PM [facility] eGFR 117 >=60 mL/min/1. 73m2 LAB CHEMISTRY METHOD 04/02/2025 7:05 PM [facility] Comment:Calculation based on the Chronic Kidney Disease Epidemiology Collaboration (CKD-EPI) equation refit without adjustment for race. BUN/Creatinine Ratio 15.5 LAB CHEMISTRY METHOD 04/02/2025 7:05 PM [facility] Calcium 9.0 8.5 - 10.5 mg/dL LAB CHEMISTRY METHOD 04/02/2025 7:05 PM [facility] Blood Venous blood specimen / Unknown Venipuncture / Unknown 04/02/2025 4:21 PM EDT 04/02/2025 4:21 PM EDT us Saqib Evans MD LAB BLOOD ORDERABLES F inal Result [facility] [address] [place] [address], * Hepatitis C antibody (03/08/2025 8:17 AM EDT) Hepatitis C Antibody Negative Negative LAB CHEMISTRY METHOD 03/08/2025 12:20 PM EDT [facility] Blood Venous blood specimen / Unknown Venipuncture / Unknown 03/08/2025 8:17 AM EDT 03/08/2025 8:17 AM EDT Catie Baca MD LAB BLOOD ORDERABL ES Final Result Performing Organization Address [facility]/ZIP Co de Phone Number [facility] [address] [place] [address], [place] [phone] * Thyroid stimulating hormone with reflex to free t4 and free t3 (03/08/2025 8:17 AM EDT) TSH 1.05 0.40 - 4.00 mcIU/mL LAB CHEMISTRY METHOD 03/08/2025 11:40 AM EDT [facility] Blood Venous blood specimen / Unknown Venipuncture / Unknown 03/08/2025 8:17 AM EDT 03/08/2025 8:17 AM EDT Catie Baca MD LAB BLOOD ORDERABL ES Final Result Performing Organization Address City/[facility]/ZIP Co de Phone Number [facility] [address] [place] [address], [place] [phone] * Lipid panel with reflex to direct LDL (03/08/2025 8:17 AM EDT) Cholesterol 162 0 - 200 mg/dL LAB CHEMISTRY METHOD 03/08/2025 10:47 AM EDT [facility] Triglycerides 47 0 - 150 mg/dL LAB CHEMISTRY METHOD 03/08/2025 10:47 AM EDT [facility] HDL 59 >=40 mg/dL LAB CHEMISTRY METHOD 03/08/2025 10:47 AM EDT [facility] LDL Calculated 94 0 - 100 mg/dL LAB CHEMISTRY METHOD 03/08/2025 10:47 AM EDT [facility] Comment:Estimated LDL Calcul ated using equation: Total cholesterol - HDL cholesterol - (Triglycerides/5) VLDL Cholesterol Sergo 9.4 mg/dL LAB CHEMISTRY METHOD 03/08/2025 10:47 AM EDT [facility] Non HDL Chol. (LDL+VLDL) 103 <145 mg/dL LAB CHEMISTRY METHOD 03/08/2025 10:47 AM EDT [facility] Chol/HDL Ratio 2.7 0.0 - 4.4 LAB CHEMISTRY METHOD 03/08/2025 10:47 AM EDT [facility] Blood Venous blood specimen / Unknown Venipuncture / Unknown 03/08/2025 8:17 AM EDT 03/08/2025 8:17 AM EDT us Catie Baca MD LAB BLOOD ORDERABL ES Final Result [facility] [address] [place] [address], * CBC auto differential (03/08/2025 8:17 AM [...] MEDICAL [facility] LAB NRBC Absolute 0.00 <0.10 K/[facility] HEMETOLOGY METHOD 03/08/2025 10:08 AM [place] [...] LAB Neutrophils Absolute 3.88 1.50 - 7.00 K/[facility] HEMETOLOGY METHOD 03/08/2025 10:08 AM EDT [facility] Lymphocytes Absolute 1.60 1.00 - 5.00 K/[facility] HEMETOLOGY METHOD 03/08/2025 10:08 AM EDT [facility] Monocytes Absolute 0.49 0.20 - 1.00 K/[facility] HEMETOLOGY METHOD 03/08/2025 10:08 AM EDT [facility] Eosinophils Absolute 0.06 0.00 - 0.50 K/[facility] HEMETOLOGY METHOD 03/08/2025 10:08 AM EDT [facility] Basophils Absolute 0.03 0.00 - 0.20 K/[facility] HEMETOLOGY METHOD [facility]/08[facility] Immature Granulocytes Absolute 0.02 0.00 - 0.03 /[facility] HEMETOLOGY METHOD 03/08/2025 10:08 AM T [facility] Blood Venous blood specimen / Unknown Venipuncture / Unknown 03/08/2025 8:17 AM EDT 03/08/2025 8:17 AM EDT Catie Baca MD LAB BLOOD ORDERABL ES Final Result [facility] [address] [place] [address], * Comprehensive metabolic panel (03/08/2025 8:17 AM EDT) Sodium 138 133 - 145 mmol/L LAB CHEMISTRY METHOD 03/08/2025 10:43 AM EDT [facility] Potassium 4.0 3.5 - 5.5 mmol/L LAB CHEMISTRY METHOD 03/08/2025 10:43 AM [facility] Chloride 107 96 - 110 mmol/L LAB CHEMISTRY METHOD 03/08/2025 10:43 AM EDT [facility] CO2 27 21 [...] 10:43 AM [facility] AST (SGOT) 18 10 - 42 unit/L LAB CHEMISTRY METHOD 03/08/2025 10:43 AM [facility] ALT (SGPT) 19 10 - 60 unit/L LAB CHEMISTRY METHOD 03/08/2025 10:43 AM [facility] Alkaline Phosphatase 68 42 - 121 unit/L LAB CHEMISTRY METHOD 03/08/2025 10:43 AM [facility] Total Protein 7.1 6.0 - 8.0 g/dL LAB CHEMISTRY METHOD 03/08/2025 10:43 AM [facility] Albumin 4.1 3.2 - 5.0 g/dL LAB CHEMISTRY METHOD 03/08/2025 10:43 AM EDT [facility] Total Bilirubin 0.7 0.0 - 1.4 mg/dL LAB CHEMISTRY METHOD 03/08/2025 10:43 AM EDT [facility] Blood Venous blood specimen / Unknown Venipuncture / Unknown 03/08/2025 8:17 AM EDT 03/08/2025 8:17 AM EDT Catie Baca MD LAB BLOOD ORDERABL ES Final Result [facility] [address] [place] [address], [place] [phone] * Depression Screening (02/17/2024) Depression Screening ABSTRACTED Historical Provider HEALTH MAINTENANCE Final Result * HIV Screening (02/24/2022) HIV Screening ABSTRACTED Historical Provider HEALTH MAINTENANCE Final Result * Pap Smear (09/16/2021) Pap smear no interpretation , abstracted Historical Provider HEALTH MAINTENANCE Final Result from Last 3 Months or Most Recently Relevant to Health Maintenance Insurance [facility] [employer] Care Teams Equipment Maintenance Engineer Relationship Specialty Start Date End Date Catie Baca MD [address] [place] [phone] PCP - General Internal Medicine 02/03/22
--- OUTSIDE RECORDS SUMMARY | 2025-05-29 19:44 | XMS_ITS | Encounter Summary ---
Author Organization [facility] Address [address] [place] [address] Care Team Providers Care Centrifugal Separator Name Role Phone Catie Baca MD Primary Care Prov ider Reason for Visit * Reason Onset Date Comments B12 Injection 05/29/2025 Encounter Details Date Type Department Care Team ([facility] st Contact Info) Description 05/29/2025 Telephone Adult Medicine [facility] [address] [place] [address] Catie Baca MD [address] [place], [place] Social History Tobacco Use Types Packs/Day [...] as of this encounter Progress Notes * Sonia Cook - 05/29/2025 9:03 AM EST Patient is calling wanting her PCP to request her B 12 shot in [facility], patient had an appointment for 05/30/2025 and was cancelled due to no active insurance, patient stated she has emergency temporarily insurance that can cover her B 12 shot. Please advise documented in this encounter Plan of Treatment Upcoming Encounters Date Type Department Care Team (Late st Contact Info) Description 03/08/2026 2:00 PM EDT Office Visit Adult Medicine [facility] [address] [place] [address] Catie Baca MD [address] [place] [address] documented as of this encounter Visit Diagnoses Not on filedocumented in this encounter Additional Health Concerns Assessment Noted Time PHQ-9 Depression Total Score: 0 03/07/20 25 7:37 AM EDT documented as of this encounter Care Teams Centrifugal Separator Relationship Specialty Start Date End Date Catie Baca MD [address] [place] [address] PCP - General Internal Medicine 02/03/22 documented as of this encounter
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
--- OUTSIDE RECORDS SUMMARY | 2025-05-29 19:44 | XMS_ITS | Encounter Summary ---
Author Organization [facility] Address [address] [place] [address] Care Team Providers Care Transfer Man Name Role Phone Catie Baca MD Primary Care Prov ider Encounter Details Date Type Department Care Team (Late st Contact Info) Description 04/03/2025 Results Follow-Up Adult Medicine [facility] [address] [place], [place] [phone] Saqib Evans MD [address] [place], [place] Social History Tobacco Use Types Packs/Day [...] PM EDT Office Visit Adult Medicine [address] [phone] Catie Baca MD [address] [place] [address] documented as of this encounter Visit Diagnoses Not on filedocumented in this encounter Additional Health Concerns Assessment Noted Time PHQ-9 Depression Total Score: 0 03/07/20 25 7:37 AM EDT documented as of this encounter Care Teams Transfer Man Relationship Specialty Start Date End Date Catie Baca MD [address] [place] [phone] PCP - General Internal Medicine 02/03/22 documented as of this encounter
== END 2025-05-29 19:24 | disposition home or self-care (01) ==
PROVIDERS: Registered Nurse Emergency; Emergency Provider Student in an Organized Health Care Education/Training Program; PCP Internal Medicine
DX: S29.8XXA Other specified injuries of thorax, initial encounter (principal); Y04.8XXA Assault by other bodily force, initial encounter; Y93.9 Activity, unspecified; Y92.9 Unspecified place or not applicable; Y99.9 Unspecified external cause status; R07.9 Chest pain, unspecified; Z79.899 Other long term (current) drug therapy
CPT/HCPCS: 36415; 71046; 80053; 84484; 84702; 85025; 85610; 93005; 99284

== ENCOUNTER → 2025-05-29 16:40 | Outpatient (BNV) | payer OTHER, SELFPAY | PROVIDERS: Emergency Provider Student in an Organized Health Care Education/Training Program; PCP Internal Medicine; Visit Provider Internal Medicine Cardiovascular Disease | DX: R07.9 Chest pain, unspecified (principal) | CPT/HCPCS: 93010 ==

== ENCOUNTER → 2025-05-29 16:51 | Outpatient (BNV) | payer OTHER, SELFPAY | PROVIDERS: PCP Internal Medicine; Visit Provider Radiology Diagnostic Radiology | DX: R07.89 Other chest pain (principal); Y09 Assault by unspecified means | CPT/HCPCS: 71046 ==